=== PATIENT | male | born 2000 | race Caucasian/White ===

== ENCOUNTER 2018-10-29 21:07 | Emergency (ER) | payer BC, OTHER ==
[~2018-10-29] VITALS: Ht 165.1 cm; Wt 54.4 kg
[~2018-10-29 21:07] MED LIST: METH4TAB PO
--- OUTSIDE RECORDS SUMMARY | 2018-10-29 21:12 | XMS REPORT | Clinical Summary ---
Author Author [facility] Organization [facility] Address Unknown Phone Unavailable Care Team Providers Care Geophysical Drafter Name Role Phone Diogenes Guillen MD Unavailable Trang Hodge RN Unavailable Unavailable Lou Oden RN Unavailable Unavailable Oly Stevenson MD Unavailable Unavailable Minerva Caro APRN Unavailable Unavailable Lorenza Albarado PA-C Unavailable Taniya Rod MD PCP Enmanuel Ventura RN Unavailable Unavailable Source Comments Some departments are not documenting in the electronic medical record. If you do not see the information that you expected, contact Release of Information in the Health Information Management department at [phone] for further assistance in locating additional records.[facility] Allergies No Known Allergies Medications End Date Status Medication Sig Dispensed Refills Start Date Active meloxicam (MOBIC) 7.5 mg Take 7.5 mg 0 tablet by mouth daily. Active cholecalciferol (Vitamin Take 1,000 0 D3) (VITAMIN D-3) 1,000 Units by units tablet mouth daily. Active calcium carbonate (TUMS) Take 500 mg 0 500 mg (200 mg elemental by mouth calcium) chewable tablet daily. Active oxyCODONE (ROXICODONE) 5 Take 1-2 Tabs 60 Tab 0 06/26/201 mg tablet by mouth 5 every 4 hours as needed for Pain Active cephalexin (KEFLEX) 500 Take 4 20 Cap 3 08/16/201 mg capsuleIndications: capsules by 6 Hip joint replacement mouth one status hour before dental procedure. Use remaining capsules for future dental procedures. 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 Last Filed Vital Signs Time Taken Vital Sign Reading 08/16/2015 9:56 AM [employer] Blood Pressure 112/74 08/16/2015 9:56 AM [employer] Pulse 110 06/26/2015 11:15 AM [employer] Temperature 37 C (98.6 F) - Respiratory Rate - 06/26/2015 11:15 AM [employer] Oxygen Saturation 97% - Inhaled Oxygen - Concentration 08/16/2015 9:56 AM [employer] Weight 50.6 kg (111 lb 9.6 oz) 08/16/2015 9:56 AM [employer] Height 167 cm (5' 5.75") 08/16/2015 9:56 AM [employer] Body Mass Index 18.15 Plan of Treatment Health Maintenance Due Date Last Done Comments PHYSICAL (COMPREHENSIVE) 2005 EXAM HIV SCREENING 2013 HPV VACCINES (1 - Male 2013 3-dose series) DTAP/TDAP VACCINES (1 - 01/17/2016 Tdap) INFLUENZA VACCINE 02/02/2019 MENINGOCOCCAL VACCINE Aged Out No longer eligible based (Roxy SHERMAN) on patient's age to complete this topic Results Not on filefrom Last 3 Months Insurance Type Payer Benefit Subscriber ID Effective Phone Address Plan / Dates Group PPO HEALTHLINK HEALTHLINK xxxxxx [id number] [employer] resent [id number] Advance Directives Patient has advance care planning documents, and code status on file. For more information, please contact: [facility] [address] [place] [address] Date Inactivated Comments Code Status Date Activated 06/26/2015 3:06 PM Full Code 06/24/2015 2:47 PM Provider has discussed Code Status No, discussion not w/Patient or Family? necessary based on Dx 12/06/2014 2:03 PM Full Code 12/04/2014 9:26 AM Provider has discussed Code Status Yes w/Patient or Family?
--- OUTSIDE RECORDS SUMMARY | 2018-10-29 21:12 | XMS REPORT ---
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 2829396 Problem Short stature 783.43 Active 319863757 Problem JRA (juvenile rheumatoid arthritis) M08.00 Active 122959748 Problem Generalized anxiety disorder F41.1 Active 26705205 ALLERGIES No Known Allergies ENCOUNTERS Encounter Location Date Diagnosis [facility] [address] [place] [address] Jun, Rheumatoid arthritis involving multiple sites, unspecified rheumatoid factor presence M06.9 and JRA (juvenile rheumatoid arthritis) M08.00 [facility] [address] [place] [address] Jun, Rheumatoid arthritis involving multiple sites, unspecified rheumatoid factor presence M06.9 [facility] [address] [address] Jun, Rheumatoid arthritis involving multiple sites, unspecified rheumatoid factor presence M06.9 [facility] [address] [place] [address] 18 Apr, 2018 Juvenile rheumatoid arthritis M08.00 ; Generalized anxiety disorder F41.1 and Rheumatoid arthritis involving multiple sites, unspecified rheumatoid factor presence M06.9 [facility] [address] [place] [address] Apr, JRA (juvenile rheumatoid arthritis) M08.00 [facility] [address] [address] 05 Mar, 2018 Generalized anxiety disorder F41.1 [facility] [address] [id number] 14 Jun, 2016 Visit for TB skin test Z11.1 and Screening for tuberculosis Z11.1 [facility] [address] [address] Jan, [facility] [address] [address] Oct, [facility] [address] [place] [address] Oct, [facility] [address] [address] Jun, [facility] [address] [address] Jun, [facility] [id number] [address] Sep, IMMUNIZATIONS No Known Immunizations SOCIAL HISTORY Never Assessed REASON FOR VISIT Arthritis flare up-twooden,RMA, pt states that he is in really bad pain from his arthritis and his hands and feet in his joints are swollen PLAN OF CARE Activity Details Follow Up 4 Weeks Reason: Pending Test ESR/SED RATE (IN HOUSE) VITAL SIGNS Height 64 in 2018-06-07 Weight 121.4 lbs 2018-06-07 Temperature 97.9 degrees Fahrenheit 2018-06-07 Heart Rate 106 bpm 2018-06-07 Respiratory Rate 20 2018-06-07 Oximetry on room air:100 % 2018-06-07 BMI 20.84 kg/m2 2018-06-07 Blood pressure systolic 140 mmHg 2018-06-07 Blood pressure diastolic 80 mmHg 2018-06-07 MEDICATIONS Medication Instructions Dosage Frequency Start Date End Date Duration Status PredniSONE 20 mg Orally Once a day 3 tabs po daily X 3 days, then 2 tabs po daily X 3 days, then 1 tab po daily X 3 days 24h Jun, 9 days Active Zoloft 50 mg Orally Once a day 1 tablet 24h Apr, 30 day(s) Active HydrOXYzine Pamoate 25 MG Orally at bedtime 1 capsule as needed Mar, 30 day(s) Active Humira Pen 40 MG/0.4ML Subcutaneous q 2 weeks as directed Jun, 28 days Active RESULTS No Results PROCEDURES Procedure Date Ordered Result Body Site RBC SED RATE, NONAUTOMATED Jun 07, 2018 VENIPUNCT, ROUTINE* Jun 07, 2018 INSTRUCTIONS MEDICATIONS ADMINISTERED No Known Medications MEDICAL (GENERAL) HISTORY Type Description Date Medical History rheumatoid arthritis Surgical History 2x hip replacemnt 2014 Hospitalization History surgeries
--- OUTSIDE RECORDS SUMMARY | 2018-10-29 21:12 | XMS REPORT ---
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 1473620 Problem Short stature 783.43 Active 183732485 Problem JRA (juvenile rheumatoid arthritis) M08.00 Active 789314413 Problem Generalized anxiety disorder F41.1 Active 33815450 ALLERGIES No Information ENCOUNTERS Encounter Location Date Diagnosis [facility] [id number] [place] [address] 04 Jun, 2018 Rheumatoid arthritis involving multiple sites, unspecified rheumatoid factor presence M06.9 [facility] [id number] [place] [address]- [address] 04 Jun, 2018 Rheumatoid arthritis involving multiple sites, unspecified rheumatoid factor presence M06.9 [facility] [id number] [place] [address]70- [address] 18 Apr, 2018 Juvenile rheumatoid arthritis M08.00 ; Generalized anxiety disorder F41.1 and Rheumatoid arthritis involving multiple sites, unspecified rheumatoid factor presence M06.9 [facility] [id number] [place] [address] 13 Apr, 2018 JRA (juvenile rheumatoid arthritis) M08.00 [facility] [id number] [place] [address] 05 Mar, 2018 [address] F41.1 [facility] [address] [facility] [id number] [id number] 14 Jun, 2016 Visit for TB skin test Z11.1 and Screening for tuberculosis Z11.1 [facility] [address] [address] Jan, [facility] [address] [address] Oct, [facility] [address] [address] Oct, [facility] [address] [address] Jun, [facility] [address] [address] Jun, [facility] [address] [address] Sep, IMMUNIZATIONS No Known Immunizations SOCIAL HISTORY Never Assessed REASON FOR VISIT Returned call PLAN OF CARE VITAL SIGNS MEDICATIONS Medication Instructions Dosage Frequency Start Date End Date Duration Status Tramadol HCl 50 mg Orally every 8 hours, PRN 1 tablet as needed Jun, 28 days Active Mobic 7.5 MG Orally Once a day 1 tablet 24h Jun, 30 day(s) Active RESULTS No Results PROCEDURES No Known procedures INSTRUCTIONS MEDICATIONS ADMINISTERED No Known Medications MEDICAL (GENERAL) HISTORY Type Description Date Medical History rheumatoid arthritis Surgical History 2x hip replacemnt 2014 Hospitalization History surgeries
--- OUTSIDE RECORDS SUMMARY | 2018-10-29 21:12 | XMS REPORT ---
Author Author ISATU MILTON Organization 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 [id number] [place] [address] Jun, Rheumatoid arthritis involving multiple sites, unspecified rheumatoid factor presence M06.9 and JRA (juvenile rheumatoid arthritis) M08.00 [facility] [address] [place] [address]- [address]29 Jun, Rheumatoid arthritis involving multiple sites, unspecified rheumatoid factor presence M06.9 [facility] [address] [address] Jun, Rheumatoid arthritis involving multiple sites, unspecified rheumatoid factor presence M06.9 [facility] [id number] [place] [address]- [address] Apr, Juvenile rheumatoid arthritis M08.00 ; Generalized anxiety disorder F41.1 and Rheumatoid arthritis involving multiple sites, unspecified rheumatoid factor presence M06.9 [facility] [address] [place] [address]51 -[address]01 Apr, JRA (juvenile rheumatoid arthritis) M08.00 [facility] [address] [address] 05 Mar, 2018 Generalized anxiety disorder F41.1 [facility] [address] [id number] 14 Jun, 2016 Visit for TB skin test Z11.1 and Screening for tuberculosis Z11.1 [facility] [address] [address] Jan, [facility] [address] [address] Oct, [facility] [address] [place] [address] 3088[address] Oct, [facility] [address] [address] Jun, [facility] [address] [address] Jun, [facility] [id number] [address] Sep, IMMUNIZATIONS No Known Immunizations SOCIAL HISTORY Never Assessed REASON FOR VISIT Rx for PALS PLAN OF CARE VITAL SIGNS MEDICATIONS Medication Instructions Dosage Frequency Start Date End Date Duration Status Humira Pen 40 MG/0.4ML Subcutaneous every other week inject 40mg Jun, Active RESULTS No Results PROCEDURES No Known procedures INSTRUCTIONS MEDICATIONS ADMINISTERED No Known Medications MEDICAL (GENERAL) HISTORY Type Description Date Medical History rheumatoid arthritis Surgical History 2x hip replacemnt 2015 Hospitalization History surgeries
--- OUTSIDE RECORDS SUMMARY | 2018-10-29 21:12 | XMS REPORT ---
Author Author Migration, Doctor Organization [facility] Address Unknown Phone Unavailable Care Team Providers Care Spare Parts Clerk Name Role Phone Migration, Doctor Unavailable Unavailable PROBLEMS Type Condition ICD9-CM Code [id number] Code Onset Dates Condition Status SNOMED Code Problem Routine infant or child health check V20.2 Active 776760074 Problem Short stature 783.43 Active 383790208 Problem Rheumatoid arthritis involving multiple sites, unspecified rheumatoid factor presence M06.9 Active 676402448 Problem Social anxiety disorder F40.10 Active 70715400 Problem Polyarticular juvenile rheumatoid arthritis, 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00 [facility] [id number] [place] [address]62- 8521 Sep, Social anxiety disorder F40.10 [facility] [id number] [place] [address] 63209- 7044 13 Aug, 2018 Social anxiety disorder F40.10 [facility] [id number] [place] [address] 47639- 7651 12 Aug, 2018 Rheumatoid arthritis involving multiple sites, unspecified rheumatoid factor presence M06.9 [facility] [id number] [place] [address] 66715- 9718 Jul, Rheumatoid arthritis involving multiple sites, unspecified rheumatoid factor presence M06.9 [facility] [address] [place] [address] 89906- 1746 Jun, Rheumatoid arthritis involving multiple sites, unspecified rheumatoid factor presence M06.9 and Acne comedone L70.0 [facility] [id number] [place] [address] 62144- 1281 Jun, Rheumatoid arthritis involving multiple sites, unspecified rheumatoid factor presence M06.9 [facility] [id number] [place] [address] 80475- 7133 Jun, Rheumatoid arthritis involving multiple sites, unspecified rheumatoid factor presence M06.9 and JRA (juvenile rheumatoid arthritis) M08.00 [facility] [id number] [place] [address] 24260- 4848 Jun, Rheumatoid arthritis involving multiple sites, unspecified rheumatoid factor presence M06.9 [facility] [address] [place] [address] 86104- 5070 Jun, Rheumatoid arthritis involving multiple sites, unspecified rheumatoid factor presence M06.9 [facility] [id number] [place] [address] 55754- 5358 Apr, Juvenile rheumatoid arthritis M08.00 ; Generalized anxiety disorder F41.1 and Rheumatoid arthritis involving multiple sites, unspecified rheumatoid factor presence M06.9 [facility] [address] [address] Apr, JRA (juvenile rheumatoid arthritis) M08.00 [facility] [address] [address]- [address] Mar, Generalized anxiety disorder F41.1 [facility] [address] [place] [id number] 14 Jun, 2016 Visit for TB skin test Z11.1 and Screening for tuberculosis Z11.1 [facility] [address] [place] [address]17- [address] Jan, [facility] [address] [facility] [id number] [address] Oct, [facility] [id number] [address]- 7[address] Oct, [facility] [id number] [address]- 60[address] Jun, [facility] [address] [address]- [address] Jun, [facility] [address] [facility] [id number] [address] Sep, IMMUNIZATIONS No Known Immunizations SOCIAL HISTORY Never Assessed REASON FOR VISIT [facility] [place] OF CARE VITAL SIGNS MEDICATIONS Medication Instructions Dosage Frequency Start Date End Date Duration Status Meloxicam by Oral route Sep, Active RESULTS No Results PROCEDURES No Known procedures INSTRUCTIONS MEDICATIONS ADMINISTERED No Known Medications MEDICAL (GENERAL) HISTORY Type Description Date Medical History Juvenile Idiopathic Arthritis Medical History no hx of siezures Surgical History 2x hip replacemnt 2015 Hospitalization History surgeries
--- OUTSIDE RECORDS SUMMARY | 2018-10-29 21:12 | XMS REPORT ---
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 3548201 Problem Short stature 783.43 Active 650220673 Problem JRA (juvenile rheumatoid arthritis) M08.00 Active 543755058 Problem Generalized anxiety disorder F41.1 Active 30006936 ALLERGIES No Known Allergies ENCOUNTERS Encounter Location Date Diagnosis [facility] [id number] [place] [phone] 18 Apr, 2018 Juvenile rheumatoid arthritis M08.00 ; Generalized anxiety disorder F41.1 and Rheumatoid arthritis involving multiple sites, unspecified rheumatoid factor presence M06.9 [facility] [address], [place] [address] 13 Apr, 2018 JRA (juvenile rheumatoid arthritis) M08.00 [facility] [address], [place] [address] 05 Mar, 2018 Generalized anxiety disorder F41.1 [facility] [id number] [place] [phone] 14 Jun, 2016 Visit for TB skin test Z11.1 and Screening for tuberculosis Z11.1 [facility] [address] [address] Jan, [facility] [id number] [address] 14 Oct, 2014 [facility] [address] [facility] [id number] [address] 13 Oct, 2014 [facility] [id number] [address] Jun, [facility] [id number] [address] Jun, [place] [id number], [place] [address] Sep, IMMUNIZATIONS No Known Immunizations SOCIAL HISTORY Never Assessed REASON FOR VISIT Establish Care-MARY bejarano, pt is having a flare up with his arthritis, pt has been off of his arthitis medications mother is changing jobs no insurance PLAN OF CARE Activity Details Follow Up prn Reason: VITAL SIGNS Height 64 in 2018-04-21 Weight 116.5 lbs 2018-04-21 Temperature 98.5 degrees Fahrenheit 2018-04-21 Heart Rate 89 bpm 2018-04-21 Respiratory Rate 20 2018-04-21 Oximetry on room air:98 % 2018-04-21 BMI 19.99 kg/m2 2018-04-21 Blood pressure systolic 140 mmHg 2018-04-21 Blood pressure diastolic 62 mmHg 2018-04-21 MEDICATIONS Medication Instructions Dosage Frequency Start Date End Date Duration Status Meloxicam 7.5 mg Orally Once a day 1 tablet 24h Apr, Jun, 30 day(s) Active PredniSONE 10 mg Orally as directed 1 tablet daily for one week then 1/2 tablet daily Apr, May, 30 day(s) Active PredniSONE 20 mg Orally Once a day 3 tabs po daily X 3 days, then 2 tabs po daily X 3 days, then 1 tab po daily x 3 days 24h Apr, Apr, 9 days Active Sertraline HCl 25 MG Orally Once a day 1 tablet 24h Mar, 30 day (s) Active Zoloft 50 mg Orally Once a day 1 tablet 24h Apr, 30 day(s) Active HydrOXYzine Pamoate 25 MG Orally at bedtime 1 capsule as needed Mar, 30 day(s) Active RESULTS No Results PROCEDURES No Known procedures INSTRUCTIONS MEDICATIONS ADMINISTERED No Known Medications MEDICAL (GENERAL) HISTORY Type Description Date Medical History rheumatoid arthritis Surgical History 2x hip replacemnt 2014 Hospitalization History surgeries
--- OUTSIDE RECORDS SUMMARY | 2018-10-29 21:13 | XMS REPORT ---
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
--- OUTSIDE RECORDS SUMMARY | 2018-10-29 21:13 | XMS REPORT ---
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 1404196 Problem Short stature 783.43 Active 424804116 Problem Routine or child health check V20.2 Active 533054618 ALLERGIES No Known Allergies ENCOUNTERS Encounter Location Date Diagnosis [facility] [address] [place] [address] 05 Mar, 2018 Generalized anxiety disorder F41.1 [facility] [id number] [place] [phone] 14 Jun, 2016 Visit for TB skin test Z11.1 and Screening for tuberculosis Z11.1 [facility] [address] [place] [address] Jan, [facility] [address] [place] [address] 14 Oct, 2014 [facility] [address] [place] [address] 13 Oct, 2014 [facility] [address] [place] [phone] Jun, [facility] [id number] [place] [address] Jun, [facility] [address] [place] [address] Sep, IMMUNIZATIONS No Known Immunizations SOCIAL HISTORY Never Assessed REASON FOR VISIT Anxiety-[place]wood[place],MA PLAN OF CARE Activity Details Follow Up 4 Weeks Reason:anxiety check up VITAL SIGNS Height 64 in 2018-03-09 Weight 125.5 lbs 2018-03-09 Temperature 98.2 degrees Fahrenheit 2018-03-09 Heart Rate 89 bpm 2018-03-09 Respiratory Rate 16 2018-03-09 Oximetry on room air:100 % 2018-03-09 BMI 21.54 kg/m2 2018-03-09 Blood pressure systolic 120 mmHg 2018-03-09 Blood pressure diastolic 80 mmHg 2018-03-09 MEDICATIONS Medication Instructions Dosage Frequency Start Date End Date Duration Status Meloxicam by Oral route Sep, Active HydrOXYzine Pamoate 25 MG Orally at bedtime 1 capsule as needed Mar, 30 day(s) Active Sertraline HCl 25 MG Orally Once a day 1 tablet 24h Mar, 30 day (s) Active Actemra 80 MG/4ML Active RESULTS No Results PROCEDURES No Known procedures INSTRUCTIONS MEDICATIONS ADMINISTERED No Known Medications MEDICAL (GENERAL) HISTORY Type Description Date Medical History rheumatoid arthritis Surgical History 2x hip replacemnt 2014 Hospitalization History surgeries
--- OUTSIDE RECORDS SUMMARY | 2018-10-29 21:13 | XMS REPORT ---
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
[2018-10-29] MEDS ORDERED: LACTATED RINGERS 1,000 ML IV ONE (21:33)
[2018-10-29 21:48] LABS: BILIRUBIN,URINE NEGATIVE (NEGATIVE); CLARITY,URINE CLEAR; COLOR,URINE YELLOW; GLUCOSE, URINE (UA) NEGATIVE (NEGATIVE); KETONES,URINE NEGATIVE (NEGATIVE); LEUKOCYTE ESTERASE ,URINE NEGATIVE (NEGATIVE); NITRITE,URINE NEGATIVE (NEGATIVE); PH,URINE 6 (5-9); PROTEIN,URINE NEGATIVE (NEGATIVE); UROBILINOGEN,URINE NORMAL (NORMAL)
--- NOTE | 2018-10-29 21:48 | NUR ---
UA OBTAINED AT THIS TIME.
--- NOTE | 2018-10-29 21:50 | NUR ---
MOTHER ET SISTER AT BEDSIDE. PT REMOVED HIS CLOTHING PER THIS RN REQUEST ET DRESSED IN PAPER SCRUBS PROVIDED FOR HIM ALSO BY THIS RN.
--- NOTE | 2018-10-29 21:52 | NUR ---
MOTHER WANTING TO LEAVE TO GO TO WAITING ROOM. THIS RN INFORMED MOTHER THAT SOMEONE NEEDED TO BE W/ PT AT ALL TIMES. MOTHER OFFERED TO LEAVE HER TEENAGE DAUGHTER W/ PT. THIS RN INFORMED MOTHER IT WOULD BE BEST TO HAVE AN ADULT AT BEDSIDE. DID SUGGEST THAT MOTHER WAIT UNTIL ED HAD STAFF AVAILABLE TO SIT W/ PT SHE LEFT TO WAITING ROOM. MOTHER VOICED UNDERSTANDING
[2018-10-29 21:56] LABS: BASOPHILS % (AUTO) 0 % (0-10); EOSINOPHILS # (AUTO) 0.2 10^3/uL (0.0-0.3); EOSINOPHILS % (AUTO) 2 % (0-10); HEMATOCRIT 40 % (40-54); HEMOGLOBIN 12.6 G/DL (13.3-17.7); LYMPHOCYTES # (AUTO) 2.2 X 10^3 (1.0-4.0); LYMPHOCYTES % (AUTO) 28 % (12-44); MEAN CORPUSCULAR HEMOGLOBIN 25 PG (25-34); MEAN CORPUSCULAR HGB CONC 32 G/DL (32-36); MEAN CORPUSCULAR VOLUME 79 FL (80-99); MEAN PLATELET VOLUME 9.4 FL (7.4-10.4); MONOCYTES % (AUTO) 13 % (0-12); NEUTROPHILS # (AUTO) 4.6 X 10^3 (1.8-7.8); NEUTROPHILS % (AUTO) 57 % (42-75); PLATELET COUNT 521 10^3/uL (130-400); RED CELL DISTRIBUTION WIDTH 15.3 % (10.0-14.5)
[2018-10-29 21:58] LABS: AMORPHOUS SEDIMENT,UR FEW AMOR URATES /LPF; BACTERIA,URINE NEGATIVE /HPF; WBC,URINE RARE /HPF
--- NOTE | 2018-10-29 21:58 | ED Psychosocial ---
General Stated Complaint: SUICIDAL IDEATION Source: patient (GIVES MINIMAL INFORMATION), family (MOM DOES ALL TALKING FOR PT) History of Present Illness Date Seen by Provider: Oct 29, 2018 Time Seen by Provider: 21:21 Initial Comments PT ARRIVES VIA POV WITH MOM AND SISTER PT HAS BEEN MAKING STATEMENTS SEVERAL TIMES TODAY, SAYING "I'M GONNA KILL MYSELF " PT STATES HE DOES NOT HAVE A PLAN AND HAS NEVER ATTEMPTED TO HARM HIMSELF PT STATES HE HAS BEEN FEELING THIS WAY "FOR A FEW DAYS" DENIES ANY PARTICULAR STRESSORS ( HOWEVER, MOM STATES SHE JUST GOT TODAY AT 11:30 THIS AM, AND PT WAS THERE WITH THEM --MOM STATES SHE DOES NOT THINK THIS IS A STRESSOR FOR HIM "BECAUSE ALL THE OTHER KIDS AT HOME ARE HANDLING IT OK" MOM STATES TODAY HE HAS "BEEN RUNNING INTO [place] AND HAS BEEN UNSTEADY ON HIS FEET" TODAY PT C/O ANXIETY MOM STATES SHE TAKES XANAX 2 MG BID AND HAD RX FILLED ON 10/27/18 FOR #60, AND THERE ARE ONLY #38 LEFT IN THE BOTTLE. SHE STATES SHE HAS ONLY TAKEN A TOTAL OF 3 SINCE THIS RX WAS FILLED. SHE STATES THAT THE LAST COUPLE OF MONTHS, SHE HAS NOTICED THAT SHE HAS HAD ALOT OF HER XANAX PILLS MISSING, BUT HAS NOT CONFRONTED HIM ABOUT IT. PT ADMITS TO TAKING "2" PILLS TODAY AT NOON, AND CLAIMS HE HAS ONLY TAKEN A TOTAL OF 5 OF MOM'S PILLS AND DOES NOT ADMIT TO TAKING MORE THAN THAT. 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 NO MISSING PREDNISONE PILLS. TAKES HUMIRA EVERY 2 WEEKS. NO MISSING PREDNISONE PILLS. 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 MOM STATES THAT HE HAS BEEN DX WITH ANXIETY, BUT SHE FEELS LIKE HE IS ALSO DEPRESSED. 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. HAS NOT ATTEMPTED TO CONTACT THEM AT ANY TIME REGARDING THESE ISSUES. PCP: [facility], DR. DRUMMOND PSYCH: [facility]--SEES PACKAGING SALES Allergies and Home Medications Allergies Coded Allergies: NKANo Known Allergies (Verified Allergy, Unknown, 01/14/06) Home Medications Methylprednisolone 4 Mg/Dose-Pack Tab.ds.pk, 0 PO UD Prescribed by: MAGDALENA SUN on 01/22/15 7958 Patient Home Medication List Home Medication List Reviewed: Yes Review of Systems Constitutional: no symptoms reported Respiratory: no symptoms reported Cardiovascular: no symptoms reported Gastrointestinal: no symptoms reported Musculoskeletal: see HPI (R.A.) Skin: no symptoms reported Psychiatric/Neurological: See HPI Past Llajewl-Fapdhh-Wgnlwj Hx Patient Social History Alcohol Use: Occasionally Uses Recreational Drug Use: No Smoking Status: Never a Smoker Recent Foreign Travel: No Contact w/Someone Who Travel: No Past Medical History Surgeries: Yes (BILATERAL TOTAL HIP REPLACEMENT) Joint Replacement, Orthopedic Respiratory: No Cardiac: Yes Pericarditis Neurological: No Genitourinary: No Gastrointestinal: No Musculoskeletal: Yes (JUVENILE R.A.) Rheumatoid Arthritis Endocrine: No HEENT: No Cancer: No Psychosocial: Yes (SUICIDAL IDEATION) Anxiety, Depression Integumentary: No Blood Disorders: No Physical Exam Vital Signs - First Documented 10/29/18 21:20 Temp 96.8 Pulse 100 Resp 16 B/P (MAP) 158/105 (122) Pulse Ox 99 O2 Delivery Room Air Capillary Refill : Height, Weight, BMI Height: 5'4" Weight: 120lbs. oz. 54.597570bt; BMI Method: General Appearance: WD/WN, no apparent distress, other (VERY FLAT AFFECT, DOES NOT MAKE EYE CONTACT, BARELY TALKS OR ANSWERS ANY QUESTIONS--VERY WITHDRAWN AND LETS MOM DO ALL TALKING FOR HIM. PT HAS ON VERY HEAVY, [employer]- TYPE MAKEUP ON HIS FACE ONLY--NOT NECK ( KEYS CONTRAST TO VERY FAIR SKIN) , BUT ALSO HAS THICK STUBBLE OF FACIAL HAIR. ) HEENT: PERRL/EOMI, normal ENT inspection Neck: normal inspection Respiratory: normal breath sounds, no respiratory distress, no accessory muscle use Cardiovascular: regular rate, rhythm, no murmur Gastrointestinal: normal bowel sounds, non tender, soft Extremities: normal inspection (EXCEPT FOR CHANGES OF R.A. NOTED IN HANDS) Neurologic/Psychiatric: electrophysiology scientist II-XII nml as tested, no motor/sensory deficits, alert Appearance/Memory: other (APPEARANCE ABOVE. DIFFICULT TO DETERMINE INSIGHT HE IS NOT REALLY TALKING MUCH) Behavior/Eye Contact: avoids eye contact, other (VERY WITHDRAWN, QUIET, BARELY ANSWERS QUESTIONS AND ALLOWS MOM TO DO ALL TALKING FOR HIM. ) Thoughts/Hallucinations: other (ADMITS TO HAVING SUICIDAL THOUGHTS, BUT DENIES PLAN OR ATTEMPT. ) Skin: normal color, warm/dry Progress/Results/Core Measures Results/Orders Lab Results Laboratory Tests Test 10/29/18 21:40 10/29/18 21:50 Range/Units Urine Color YELLOW Urine Clarity CLEAR Urine pH 6 5-9 Urine Specific [place] 1.025 H 1.016-1.022 Urine Protein NEGATIVE NEGATIVE Urine Glucose (UA) NEGATIVE NEGATIVE Urine Ketones NEGATIVE NEGATIVE Urine Nitrite NEGATIVE NEGATIVE Urine Bilirubin NEGATIVE NEGATIVE Urine Urobilinogen NORMAL NORMAL MG/DL Urine Leukocyte Esterase NEGATIVE NEGATIVE Urine RBC (Auto) 3+ H NEGATIVE Urine RBC 2-5 H /HPF Urine WBC RARE /HPF Urine Crystals PRESENT H /LPF Urine Amorphous Sediment FEW BRENNAN URATES H /LPF Urine Bacteria NEGATIVE /HPF Urine Casts NONE /LPF Urine Mucus MODERATE H /LPF Urine Culture Indicated NO Urine Opiates Screen NEGATIVE NEGATIVE Urine Oxycodone Screen NEGATIVE NEGATIVE Urine Methadone Screen NEGATIVE NEGATIVE Urine Propoxyphene Screen NEGATIVE NEGATIVE Urine Barbiturates Screen NEGATIVE NEGATIVE Ur Tricyclic Antidepressants Screen NEGATIVE NEGATIVE Urine Phencyclidine Screen NEGATIVE NEGATIVE Urine Amphetamines Screen NEGATIVE NEGATIVE Urine Methamphetamines Screen NEGATIVE NEGATIVE Urine Benzodiazepines Screen NEGATIVE NEGATIVE Urine Cocaine Screen NEGATIVE NEGATIVE Urine Cannabinoids Screen NEGATIVE NEGATIVE White Blood Count 8.0 4.3-11.0 10^3/uL Red Blood Count 5.02 4.35-5.85 10^6/uL Hemoglobin 12.6 L 13.3-17.7 G/DL Hematocrit 40 40-54 % Mean Corpuscular Volume 79 L 80-99 FL Mean Corpuscular Hemoglobin 25 25-34 PG Mean Corpuscular Hemoglobin Concent 32 32-36 G/DL Red Cell Distribution Width 15.3 H 10.0-14.5 % Platelet Count 521 H 130-400 10^3/uL Mean Platelet Volume 9.4 7.4-10.4 FL Neutrophils (%) (Auto) 57 42-75 % Lymphocytes (%) (Auto) 28 12-44 % Monocytes (%) (Auto) 13 H 0-12 % Eosinophils (%) (Auto) 2 0-10 % Basophils (%) (Auto) 0 0-10 % Neutrophils # (Auto) 4.6 1.8-7.8 X 10^3 Lymphocytes # (Auto) 2.2 1.0-4.0 X 10^3 Monocytes # (Auto) 1.0 0.0-1.0 X 10^3 Eosinophils # (Auto) 0.2 0.0-0.3 10^3/uL Basophils # (Auto) 0.0 0.0-0.1 10^3/uL Sodium Level 141 135-145 MMOL/L Potassium Level 3.3 L 3.6-5.0 MMOL/L Chloride Level 101 98-107 MMOL/L Carbon Dioxide Level 25 21-32 MMOL/L Anion Gap 15 H 5-14 MMOL/L Blood Urea Nitrogen 12 7-18 MG/DL Creatinine 0.64 0.60-1.30 MG/DL Estimat Glomerular Filtration Rate > 60 BUN/Creatinine Ratio 19 Glucose Level 114 H 70-105 MG/DL Calcium Level 10.0 8.5-10.1 MG/DL Corrected Calcium 9.9 8.5-10.1 MG/DL Total Bilirubin 0.2 0.1-1.0 MG/DL Aspartate Amino Transf (AST/SGOT) 16 5-34 U/L Alanine Aminotransferase (ALT/SGPT) 16 0-55 U/L Alkaline Phosphatase 81 40-136 U/L Total Protein 8.1 6.4-8.2 GM/DL Albumin 4.1 3.2-4.5 GM/DL Free Thyroxine 1.45 0.70-1.48 NG/DL [facility] [place] Testing 4.99 H 0.35-4.94 UIU/ML Salicylates Level < 5.0 L 5.0-20.0 MG/DL Acetaminophen Level < 10 L 10-30 UG/ML Serum Alcohol < 10 <10 MG/DL My Orders Orders - MAGDALENA SUN DO Urinalysis (10/29/18 21:21) Thyroid Analyzer (10/29/18 21:21) Drug Screen Stat (Urine) (10/29/18 21:21) Cbc With Automated Diff (10/29/18 21:21) Comprehensive Metabolic Panel (10/29/18 21:21) Alcohol (10/29/18 21:21) Acetaminophen (10/29/18 21:21) Salicylate (10/29/18 21:21) Ekg Tracing (10/29/18 21:21) Ed Iv/Invasive Line Start (10/29/18 21:33) Monitor-Rhythm Ecg Trace Only (10/29/18 21:33) Ed Iv/Invasive Line Start (10/29/18 21:33) Lactated Ringers (Lr 1000 Ml Iv Solution (10/29/18 21:33) Potassium Chloride (Tablet) (Klor Con Ta (10/29/18 22:45) Free T4 (Free Thyroxine) (10/29/18 21:50) Medications Given in ED Current Medications Medications Dose Ordered Sig/Karel Route Start Time Stop Time Status Last Admin Dose Admin Lactated Ringer's 1,000 ml @ 0 mls/hr Q0M ONCE IV 10/29/18 21:33 10/29/18 21:34 DC 10/29/18 21:52 0 MLS/HR Potassium Chloride 20 meq ONCE ONCE PO 10/29/18 22:45 10/29/18 22:50 DC 10/29/18 22:58 20 MEQ Vital Signs/I&O 10/29/18 21:20 Temp 96.8 Pulse 100 Resp 16 B/P (MAP) 158/105 (122) Pulse Ox 99 O2 Delivery Room Air 10/30/18 00:00 Intake Total 1000 ml Balance 1000 ml Progress Progress Note : Progress Note MOM STATES ON ARRIVAL, SHE WANTS HIM ADMITTED TO INPATIENT PSYCH FACILITY, AND MOM WANTING TO LEAVE SHORTLY AFTER PT'S ARRIVAL ADVISED MOM THAT SHE SHOULD STAY HERE IN ROOM WITH PT, SO SHE DID, DID SISTER. PT STATES HE IS NOT WILLING TO BE ADMITTED TO PSYCH FACILITY Departure Communication (Admissions) [phone]--CALLED [facility] [phone]--SPOKE WITH ELYSSA, FROM [facility], WILL BE IN TO SEE PT 2338--ELYSSA HERE TO SEE PT 0010--ELYSSA STATES SHE HAS MADE A SAFETY PLAN AND PT WILL FOLLOW UP WITH [facility] NEXT WEEK. Impression Primary Impression: Suicidal ideation Additional Impression: Depression Disposition: 01 HOME, SELF-CARE Condition: Stable Departure-Patient Inst. Referrals: ADRIANA DRUMMOND MD (PCP/Family) Primary Care Physician Patient Instructions: Depression, Adult (DC), Preventing Adolescent Suicide, SUICIDE CONTRACT, Signs of Depression in Children and Adolescents, Suicide Prevention, Tips for How to Help Your Mood, When You Have Depression and Another Health Problem Add. Discharge Instructions: DO NOT TAKE ANY MEDICATION THAT IS NOT PRESCRIBED TO YOU, AND DO NOT TAKE MORE THAN PRESCRIBED AMOUNT ALL MEDICATIONS IN HOME NEED TO BE LOCKED UP AND DISTRIBUTED TO YOU BY YOUR MOTHER FOLLOW UP WITH [facility] ON WEDNESDAY FOR FURTHER CARE MAGDALENA SUN DO Oct 29, 2018 21:58
--- NOTE | 2018-10-29 21:59 | NUR ---
MOTHER ET SISTER TO WAITING ROOM. CAITLIN FLANNERY AT BEDSIDE W/ PT.
[2018-10-29 22:01] LABS: AMPHETAMINE SCREEN, URINE NEGATIVE (NEGATIVE); BARBITURATE SCREEN URINE NEGATIVE (NEGATIVE); BENZODIAZEPINES SCREEN URINE NEGATIVE (NEGATIVE); CANNABINOID SCREEN, URINE NEGATIVE (NEGATIVE); COCAINE SCREEN URINE NEGATIVE (NEGATIVE); METHADONE STAT NEGATIVE (NEGATIVE); METHAMPHETAMINE SCREEN URINE S NEGATIVE (NEGATIVE); OPIATE SCREEN URINE NEGATIVE (NEGATIVE); OXYCODONE STAT NEGATIVE (NEGATIVE); PROPOXYPHENE STAT NEGATIVE (NEGATIVE); TRICYCLIC ANTIDEPRESSANTS SCRE NEGATIVE (NEGATIVE)
[2018-10-29 22:29] LABS: ACETAMINOPHEN < 10 UG/ML (10-30); ALANINE AMINOTRANSFERASE 16 U/L (0-55); ALBUMIN 4.1 GM/DL (3.2-4.5); ALKALINE PHOSPHATASE 81 U/L (40-136); BILIRUBIN,TOTAL 0.2 MG/DL (0.1-1.0); BUN/CREATININE RATIO 19; CARBON DIOXIDE 25 MMOL/L (21-32); CHLORIDE 101 MMOL/L (98-107); CREATININE SERUM 0.64 MG/DL (0.60-1.30); GFR ESTIMATED > 60; GLUCOSE 114 MG/DL (70-105); POTASSIUM 3.3 MMOL/L (3.6-5.0); SALICYLATE < 5.0 MG/DL (5.0-20.0); SODIUM 141 MMOL/L (135-145); TOTAL PROTEIN 8.1 GM/DL (6.4-8.2)
--- NOTE | 2018-10-29 22:31 | NUR ---
LR INFUSION COMPLETE, MOTHER ET SISTER REMAIN AT BEDSIDE. LIGHTS DOWN IN ROOM TO ALLOW PT TO REST. NO QUESTIONS OR CONCERNS VOICED
[2018-10-29] MEDS ORDERED: KCL 10 MEQ TAB (MICRO K) PO ONE (22:45)
[2018-10-29 22:49] LABS: TSH (THYROID ANALYZER) 4.99 UIU/ML (0.35-4.94)
--- NOTE | 2018-10-29 23:19 | NUR ---
MOTHER ET SISTER AGAIN LEFT TO WAITING ROOM. EDT TO BEDSIDE W/ PT AT THIS TIME.
[2018-10-29 23:21] LABS: FREE T4 (FREE THYROXINE) 1.45 NG/DL (0.70-1.48)
--- NOTE | 2018-10-29 23:35 | NUR ---
MOTHER ET DAUGHTER BACK TO ROOM W/ PT
--- NOTE | 2018-10-29 23:38 | NUR ---
ELYSSA W/ [facility] HERE TO SEE PT
--- NOTE | 2018-10-30 00:09 | NUR ---
[facility] OUT OF ROOM TO TALK W/ DR SUN
[2018-10-30 00:31] VITALS: BP 143/91
--- NOTE | 2018-10-30 00:31 | NUR ---
SUICIDE CONTRACT SIGNED BY PT. DISCHARGE INSTRUCTIONS DISCUSSED W/ BOTH PT ET MOTHER. UNDERSTANDING VOICED. MOTHER ET PT URGED TO RETURN TO THIS ED OR GO TO THE ED OF THEIR CHOICE FOR FURTHER CARE. NO QUESTIONS
== END 2018-10-30 00:31 | disposition home or self-care (01) ==
LOC: EDUNIT# 21:07 → ER 21:08
DX: R45.851 Suicidal ideations (principal); F32.9 Major depressive disorder, single episode, unspecified; F41.9 Anxiety disorder, unspecified; M06.9 Rheumatoid arthritis, unspecified; Z79.52 Long term (current) use of systemic steroids; Z96.643 Presence of artificial hip joint, bilateral; Z86.69 Personal history of other diseases of the nervous system and sense organs
CPT/HCPCS: 36415; 80053; 80306; 80320; 80329; 81000; 84439; 84443; 85025; 93005

== ENCOUNTER 2019-07-16 11:41 | Emergency (ER) | payer BC ==
[~2019-07-16] VITALS: Ht 165.1 cm; Wt 61.3 kg
--- NOTE | 2019-07-16 12:22 | ED Lower Extremity ---
General Chief Complaint: General Problems/Pain Stated Complaint: L HIP PAIN Nursing Triage Note: Pt to ED in wheelchair accompanied by stepfather. Stepfather reports pt has RA and is having a flare. Pt c/o L hip and sciatic pain since Wednesday. Pt denies seeing PCP for this flare. Stepfather is requesting referral for a new doctor and reports pt needs bloodwork and medications adjusted. Nursing Sepsis Screen: No Definite Risk Source: patient History of Present Illness Date Seen by Provider: Jul 16, 2019 Time Seen by Provider: 11:55 Initial Comments PT ARRIVES VIA POV FROM HOME WITH STEP-DAD C/O LEFT HIP PAIN SINCE Wednesday07/11/19 PAIN RADIATES DOWN BACK OF LEFT LEG, BUT DENIES ANY BACK PAIN HAS SLIGHT TINGLING IN LEFT TOES. NO INJURY OR UNUSUAL ACTIVITY PT TOOK 1 NAPROXEN TODAY AT 0800 --NO RELIEF. HAS TRAMADOL AT HOME AND TOOK 1 YESTERDAY, NO RELIEF. OTHERWISE HAS NOT TAKEN ANYTHING ELSE FOR PAIN PT HAS JUVENILE RHEUMATOID ARTHRITIS, AND STATES HE TAKES PREDNISONE 5 MG DAILY FOR YEARS, BUT OTHERWISE DOES NOT TAKE ANYTHING ELSE AT ALL FOR THIS PROBLEM ( THIS IS NOT LISTED DAILY MEDICATION ON REVIEW OF EXTERNAL MED HISTORY) HE STATES HE ONLY HAS A FEW LEFT, DOES NOT HAVE ANY REFILLS, AND HAS NOT ATTEMPTED TO FOLLOW UP WITH DR. DRUMMOND OR ANYONE FOR THIS PROBLEM OR FOR REFILLS ON HIS MEDICATION PT STATES HE DOES NOT SEE ANY SPECIALISTS FOR THIS--NO ORTHOPEDIC SURGEON SINCE 2014, AND CLAIMS HE HAS NOT SEEN A PERIANESTHESIA MANAGER "FOR YEARS"--SINCE AT LEAST 2016 STATES HE WAS DX AT AGE 1 PT HAD BILATERAL HIP REPLACEMENTS IN 2015 AT . PT STATES HE HAS NOT HAD HIP PAIN SINCE HE HAD THEM REPLACED. PT DENIES BEING ON ANY MEDICATIONS IN THE PAST FOR R.A. BUT PER OLD RECORDS, PT HAS BEEN PRESCRIBED REMICADE, ACTEMRA, AND HUMIRA IN THE PAST, BUT LAST PRESCRIBED HUMIRA 10/2018 PER MED RECONCILIATION--STATES HE WAS PRESCRIBED THESE MEDICATIONS BY DR. DRUMMOND. PCP: DR. DRUMMOND AT [facility] Allergies and Home Medications Allergies Coded Allergies: NKANo Known Allergies (Verified Allergy, Unknown, 01/14/06) Home Medications Cyclobenzaprine HCl 10 Mg Tablet, 10 MG PO Q8H Prescribed by: MAGDALENA SUN on 07/16/19 1243 Methylprednisolone 4 Mg/Dose-Pack Tab.ds.pk, 0 PO UD Prescribed by: MAGDALENA SUN on 01/22/159 Prednisone 20 Mg Tab, 40 MG PO DAILY Prescribed by: MAGDALENA SUN on 07/16/19 1243 Patient Home Medication List Home Medication List Reviewed: Yes Review of Systems Constitutional: no symptoms reported; No chills, No diaphoresis, No fever Respiratory: no symptoms reported Cardiovascular: no symptoms reported Gastrointestinal: no symptoms reported Musculoskeletal: see HPI, joint pain, joint swelling (KNEES ARE SWOLLEN) Skin: no symptoms reported Psychiatric/Neurological: See HPI Past Ufgrzam-Xernrh-Iuofni Hx Patient Social History Alcohol Use: Occasionally Uses Recreational Drug Use: Yes (HAS ABUSED RX DRUGS--MAINLY XANAX AND TRAMADOL, PER VISIT 10/29/18) Drug of Choice: HAS ABUSED RX DRUGS--MAINLY XANAX AND TRAMADOL, PER ER RECORD 10/29/18 Smoking Status: Never a Smoker 2nd Hand Smoke Exposure: No Recent Foreign Travel: No Contact w/Someone Who Travel: No Recent Infectious Disease Expo: No Recent Hopitalizations: No Past Medical History Surgeries: Yes (BILATERAL TOTAL HIP REPLACEMENTS 2014) Joint Replacement, Orthopedic Respiratory: No Cardiac: Yes Pericarditis Neurological: No Genitourinary: No Gastrointestinal: No Musculoskeletal: Yes (JUVENILE R.A. DX AGE 1; OSTEOPENIA; S/P BILATERAL HIP REPLACEMENTS 2014) Arthritis, Rheumatoid Arthritis Endocrine: No HEENT: No Cancer: No Psychosocial: Yes (SUICIDAL IDEATION) Anxiety, Depression Integumentary: No Blood Disorders: No Physical Exam Vital Signs Vital Signs - First Documented 07/16/19 11:47 Temp 36.9 Pulse 108 Resp 15 B/P (MAP) 149/104 (119) Pulse Ox 98 O2 Delivery Room Air Capillary Refill : Less Than 3 Seconds Height, Weight, BMI Height: 5'5.00" Weight: 120lbs. oz. 54.450308vg; 22.00 BMI Method:Stated General Appearance: WD/WN, no apparent distress, other (VERY FLAT AFFECT, DOES NOT MAKE EYE CONTACT) Cardiovascular: regular rate, rhythm, no murmur Respiratory: normal breath sounds Gastrointestinal: soft Back: no vertebral tenderness Hips: right hip non-tender, right hip normal inspection; left hip no evidence of injury, left hip limited range of motion, left hip other (MILD TENDERNESS TO LEFT HIP. NO OBVIOUS HIP SWELLING) Legs: bilateral leg other (NO EDEMA TO LEGS) Knees: bilateral knee bone tenderness, bilateral knee soft tissue tenderness, bilateral knee swelling Ankles: bilateral ankle non-tender, bilateral ankle normal inspection, bilateral ankle normal range of motion, bilateral ankle no evidence of injury Feet: bilateral foot non-tender, bilateral foot normal inspection, bilateral foot normal range of motion, bilateral foot no evidence of injury Neurologic/Tendon: normal sensation, normal motor functions, normal tendon functions Neurologic/Psychiatric: permastone applicator II-XII nml as tested, no motor/sensory deficits, alert, normal mood/affect, oriented x 3 Skin: normal color, warm/dry; No rash NO BACK TENDERNESS, NO SI JOINT TENDERNESS, NO ILIAC CREST TENDERNESS, NO PUBIC BONE TENDERNESS. Progress/Results/Core Measures Results/Orders My Orders Orders - MAGDALENA SUN DO Pelvis With Left Hip 2-3 Views (07/16/19 12:04) Methylprednisolone Sod Succ (Solu-Medrol (07/16/19 13:00) Orphenadrine Injection (Norflex Injectio (07/16/19 13:00) Vital Signs/I&O 07/16/19 11:47 Temp 36.9 Pulse 108 Resp 15 B/P (MAP) 149/104 (119) Pulse Ox 98 O2 Delivery Room Air Blood Pressure Mean: 119 Progress Progress Note : Progress Note MOM ARRIVES LATER, AND VERIFIES MEDICATIONS, SPECIALISTS, ETC. PT MAKES BETTER EYE CONTACT PRIOR TO DISMISSAL. PT AND FAMILY AGREE WITH PLAN OF CARE--ADVISED TO FOLLOW UP WITH DR. DRUMMOND THIS WEEK FOR FURTHER CARE, AND FOR POSSIBLE NEW REFERRAL TO PERIANESTHESIA MANAGER. PT STATES HE HAS A WALKER AT HOME, AND ADVISED HIM TO USE IT LONG HE IS HAVING PAIN, AND WHILE TAKING PAIN MEDICATION AND MUSCLE RELAXANT, TO PREVENT FALLING. Diagnostic Imaging Comments XRAYS PELVIS AND LEFT HIP--NO ACUTE PROCESS, PER RADIOLOGIST REPORT AT 1244 Reviewed: Reviewed by Me Departure Impression Primary Impression: Left hip pain Additional Impressions: Radicular pain of left lower extremity Juvenile rheumatoid arthritis Disposition: HOME, SELF-CARE Condition: Stable Departure-Patient Inst. Referrals: ADRIANA DRUMMOND MD (PCP/Family) Primary Care Physician Patient Instructions: Hip Pain (DC), Radiculopathy (DC), Rheumatoid Arthritis (DC) Add. Discharge Instructions: ALTERNATE ICE AND HEAT TO SORE AREAS AT 20 MINUTE INTERVALS TAKE YOUR TRAMADOL 1 PILL EVERY 4 HOURS NEEDED FOR PAIN FOLLOW UP WITH DR. DRUMMOND THIS WEEK FOR FURTHER CARE All discharge instructions reviewed with patient and/or family. Voiced understanding. Scripts Cyclobenzaprine HCl (Cyclobenzaprine HCl) 10 Mg Tablet 10 MG PO Q8H, #15 TAB Prov: MAGDALENA SUN DO 07/16/19 Prednisone (Prednisone) 20 Mg Tab 40 MG PO DAILY, #6 TAB Prov: MAGDALENA SUN DO 07/16/19 MAGDALENA SUN DO Jul 16, 2019 12:22
--- NOTE | 2019-07-16 12:32 | Diagnostic Imaging Report ---
EXAMINATION: Pelvis, single view. COMPARISON: None. HISTORY: 19-year-old male, left hip and sciatic pain. History of rheumatoid arthritis. FINDINGS: There are bilateral total hip prostheses. The pubic symphysis and sacroiliac joints are unremarkable in appearance. The bones appear demineralized. The femoral diaphysis appear somewhat gracile. There is no identified acute fracture. IMPRESSION: 1. No identified acute bony abnormality. 2. The bones appear demineralized. Dictated by: Dictated on workstation # [id number]
[2019-07-16] MEDS ORDERED: PRD20T PO (12:43)
[2019-07-16] MEDS ORDERED: CYCL10TA9 PO (12:43)
[2019-07-16] MEDS ORDERED: ORPHENADRINE 60 MG/2 ML (NORFLEX) AMP IM ONE (13:00)
[2019-07-16] MEDS ORDERED: methylPREDNISolone 125 MG (Solu-MEDROL) VIAL IM ONE (13:00)
[2019-07-16 13:06] VITALS: BP 151/93
== END 2019-07-16 13:07 | disposition home or self-care (01) ==
LOC: EDUNIT# 11:41 → ER 11:42
DX: M08.052 Unspecified juvenile rheumatoid arthritis, left hip (principal); M54.10 Radiculopathy, site unspecified; F41.9 Anxiety disorder, unspecified; F32.9 Major depressive disorder, single episode, unspecified; Z96.643 Presence of artificial hip joint, bilateral
CPT/HCPCS: 96372

== ENCOUNTER → 2020-03-06 | Outpatient (CLI) | payer OTHER ==
[~2020-03-06] MED LIST changes: +CYCL10TA9 PO; +PRD20T PO
--- NOTE | 2020-03-06 13:46 | Diagnostic Imaging Report ---
INDICATION: Left shoulder pain AP, and oblique views of the left shoulder are obtained. There is no fracture or acute bony abnormality. There is advanced degenerative change of the left shoulder joint with severe joint space narrowing and subchondral sclerosis. IMPRESSION: No acute abnormality. Advanced degenerative change of the left glenohumeral joint. Dictated by: Dictated on workstation # [id number]
== END ==
LOC: RAD 10:16
PROVIDERS: ATTEND Anesthesiology Pain Medicine
DX: Z02.71 Encounter for disability determination (principal); M19.012 Primary osteoarthritis, left shoulder; D64.9 Anemia, unspecified; F32.9 Major depressive disorder, single episode, unspecified; F41.9 Anxiety disorder, unspecified; M06.9 Rheumatoid arthritis, unspecified; Z98.1 Arthrodesis status
CPT/HCPCS: 73030

== ENCOUNTER 2020-10-12 10:49 | Emergency (ER) | payer SELFPAY ==
[~2020-10-12] VITALS: Ht 167 cm; Wt 63.5 kg
[2020-10-12] MEDS ORDERED: NS IV 1000 ML 1,000 ML ONE (11:02)
--- NOTE | 2020-10-12 11:10 | ED Neurological Problem ---
General Chief Complaint: Neurological Problems Stated Complaint: SEIZURE Nursing Triage Note: PT PRESENTS TO ED VIA EMS FROM HOME OFR SEIZURE LIKE ACTIVITY LASTING APROX 3 MIN ACCORDING TO PT FATHER. PT IS ALERT AND ORIENTED UPON ARRIVAL TO ED. Nursing Sepsis Screen: No Definite Risk History of Present Illness Date Seen by Provider: Oct 12, 2020 Time Seen by Provider: 11:00 Initial Comments 20-year-old male presents for seizure-like activity that occurred at home, it was witnessed by his father. He believes it lasted approximately 3 minutes. No history of seizures in the past. He started a new medicine, Xeljanz approximately 2 weeks ago, no other change in his recent medical history. He does have a history of rheumatoid arthritis. No incontinence with the seizure. Patient was in bed when it occurred, no other injuries related to it. The patient is alert and oriented x3 at this time. He was brought by EMS. Father reports he was shaking and eyes rolled back, he was unable to talk and breathing hard, but recovered quickly. Timing/Duration: 1/2 hour Associated Symptoms: No confusion; fatigue; No fever/chills, No insomnia, No loss of consciousness, No muscle spasms, No nausea/vomiting, No numbness in legs/feet, No paresthesia, No ringing in ears; seizures; No sleepy, No slurred speech, No tingling in legs/feet, No trouble walking, No vision changes, No weakness Allergies and Home Medications Allergies Coded Allergies: NKANo Known Allergies (Verified Allergy, Unknown, 01/14/06) Home Medications Cyclobenzaprine HCl 10 Mg Tablet, 10 MG PO Q8H Prescribed by: MAGDALENA SUN on 07/16/19 1243 Methylprednisolone 4 Mg/Dose-Pack Tab.ds.pk, 0 PO UD Prescribed by: MAGDALENA SUN on 01/22/15 2249 Prednisone 20 Mg Tab, 40 MG PO DAILY Prescribed by: MAGDALENA SUN on 07/16/19 1243 Patient Home Medication List Home Medication List Reviewed: Yes Review of Systems Review of Systems Constitutional: no symptoms reported, see HPI Ears, Nose, Mouth, Throat: no symptoms reported, see HPI Respiratory: no symptoms reported, see HPI Cardiovascular: no symptoms reported, see HPI Gastrointestinal: no symptoms reported, see HPI Musculoskeletal: no symptoms reported, see HPI Psychiatric/Neurological: See HPI, [place] Seizures All Other Systems Reviewed Negative Unless Noted: Yes Past Lsgcejs-Lfmbjc-Ausbaf Hx Past Med/Social Hx: Reviewed Nursing Past Med/Soc Hx Patient Social History Alcohol Use: Denies Use Drug of Choice: HAS ABUSED RX DRUGS--MAINLY XANAX AND TRAMADOL, PER ER RECORD 10/29/18 Smoking Status: Never a Smoker 2nd Hand Smoke Exposure: No Recent Infectious Disease Expo: No Recent Hopitalizations: No Past Medical History Surgeries: Yes (BILATERAL TOTAL HIP REPLACEMENTS 2014) Joint Replacement, Orthopedic Respiratory: No Cardiac: Yes Pericarditis Neurological: No Genitourinary: No Gastrointestinal: No Musculoskeletal: Yes (JUVENILE R.A. DX AGE 1; OSTEOPENIA; S/P BILATERAL HIP REPLACEMENTS 2014) Arthritis, Rheumatoid Arthritis Endocrine: No HEENT: No Cancer: No Psychosocial: Yes (SUICIDAL IDEATION) Anxiety, Depression Integumentary: No Blood Disorders: No Physical Exam Vital Signs Vital Signs - First Documented 10/12/20 10:57 Temp 35.8 Pulse 131 Resp 20 B/P (MAP) 160/103 (122) Pulse Ox 94 Capillary Refill : Less Than 3 Seconds Height, Weight, BMI Height: 5'5.00" Weight: 120lbs. oz. 54.146500ql; 22.00 BMI Method:Stated General Appearance: WD/WN, no apparent distress HEENT: PERRL/EOMI, normal ENT inspection, TMs normal, pharynx normal Neck: non-tender, full range of motion, supple, normal inspection Respiratory: chest non-tender, lungs clear, normal breath sounds Cardiovascular: normal peripheral pulses, regular rate, rhythm Gastrointestinal: normal bowel sounds, non tender, soft Back: normal inspection, no CVA tenderness, no vertebral tenderness Extremities: normal range of motion, non-tender, normal inspection, no pedal edema, no calf tenderness Neurologic/Psychiatric: mathematician research II-XII nml as tested, no motor/sensory deficits, alert, normal mood/affect, oriented x 3 Crainal Nerves: normal hearing, normal speech, PERRL Motor/Sensory: no motor deficit, no sensory deficit Skin: normal color, warm/dry Progress/Results/Core Measures Results/Orders Lab Results Laboratory Tests Test 10/12/20 10:54 10/12/20 11:13 Range/Units White Blood Count 18.7 H 4.3-11.0 10^3/uL Red Blood Count 5.72 H 4.30-5.52 10^6/uL Hemoglobin 15.6 13.3-17.7 g/dL Hematocrit 50 40-54 % Mean Corpuscular Volume 87 80-99 fL Mean Corpuscular Hemoglobin 27 25-34 pg Mean Corpuscular Hemoglobin Concent 32 32-36 g/dL Red Cell Distribution Width 15.5 H 10.0-14.5 % Platelet Count 384 130-400 10^3/uL Mean Platelet Volume 9.6 9.0-12.2 fL Immature Granulocyte % (Auto) 7 % Neutrophils (%) (Auto) 55 42-75 % Lymphocytes (%) (Auto) 29 12-44 % Monocytes (%) (Auto) 7 0-12 % Eosinophils (%) (Auto) 1 0-10 % Basophils (%) (Auto) 1 0-10 % Neutrophils # (Auto) 10.3 H 1.8-7.8 10^3/uL Lymphocytes # (Auto) 5.5 H 1.0-4.0 10^3/uL Monocytes # (Auto) 1.3 H 0.0-1.0 10^3/uL Eosinophils # (Auto) 0.2 0.0-0.3 10^3/uL Basophils # (Auto) 0.1 0.0-0.1 10^3/uL Immature Granulocyte # (Auto) 1.4 H 0.0-0.1 10^3/uL Neutrophils % (Manual) 39 % Lymphocytes % (Manual) 42 % Monocytes % (Manual) 19 % Blood Morphology Comment NORMAL Prothrombin Time 13.8 12.2-14.7 SEC INR Comment 1.0 0.8-1.4 Activated Partial Thromboplast Time 23 L 24-35 SEC Sodium Level 138 135-145 MMOL/L Potassium Level 3.8 3.6-5.0 MMOL/L Chloride Level 100 98-107 MMOL/L Carbon Dioxide Level 15 L 21-32 MMOL/L Anion Gap 23 H 5-14 MMOL/L Blood Urea Nitrogen 11 7-18 MG/DL Creatinine 0.79 0.60-1.30 MG/DL Estimat Glomerular Filtration Rate > 60 BUN/Creatinine Ratio 14 Glucose Level 125 H 70-105 MG/DL Glucometer 129 H 70-110 MG/DL Calcium Level 8.9 8.5-10.1 MG/DL Corrected Calcium 8.5 8.5-10.1 MG/DL Total Bilirubin 0.3 0.1-1.0 MG/DL Aspartate Amino Transf (AST/SGOT) 50 H 5-34 U/L Alanine Aminotransferase (ALT/SGPT) 89 H 0-55 U/L Alkaline Phosphatase 127 40-136 U/L C-Reactive Protein High Sensitivity 0.65 H 0.00-0.50 MG/DL Total Protein 7.8 6.4-8.2 GM/DL Albumin 4.5 3.2-4.5 GM/DL Procalcitonin 0.04 <0.10 NG/ML Urine Color YELLOW Urine Clarity CLEAR Urine pH 6.0 5-9 Urine Specific [place]hen[place] >=1.030 1.016-1.022 Urine Protein NEGATIVE NEGATIVE Urine Glucose (UA) NEGATIVE NEGATIVE Urine Ketones NEGATIVE NEGATIVE Urine Nitrite NEGATIVE NEGATIVE Urine Bilirubin NEGATIVE NEGATIVE Urine Urobilinogen 0.2 < = 1.0 MG/DL Urine Leukocyte Esterase NEGATIVE NEGATIVE Urine RBC (Auto) TRACE-I NEGATIVE Urine RBC NONE /HPF Urine WBC 0-2 /HPF Urine Squamous Epithelial Cells 0-2 /HPF Urine Crystals NONE /LPF Urine Bacteria NEGATIVE /HPF Urine Casts NONE /LPF Urine Mucus LARGE H /LPF Urine Culture Indicated NO Urine Opiates Screen NEGATIVE NEGATIVE Urine Oxycodone Screen NEGATIVE NEGATIVE Urine Methadone Screen NEGATIVE NEGATIVE Urine Propoxyphene Screen NEGATIVE NEGATIVE Urine Barbiturates Screen NEGATIVE NEGATIVE Ur Tricyclic Antidepressants Screen NEGATIVE NEGATIVE Urine Phencyclidine Screen NEGATIVE NEGATIVE Urine Amphetamines Screen NEGATIVE NEGATIVE Urine Methamphetamines Screen NEGATIVE NEGATIVE Urine Benzodiazepines Screen NEGATIVE NEGATIVE Urine Cocaine Screen NEGATIVE NEGATIVE Urine Cannabinoids Screen NEGATIVE NEGATIVE My Orders Orders - WALLACE JOHNSON PROTECTION CONSULTANT Cbc With Automated Diff (10/12/20 11:06) Comprehensive Metabolic Panel (10/12/20 11:06) Drug Screen Stat (Urine) (10/12/20 11:06) Protime With Inr (10/12/20 11:06) Partial Thromboplastin Time (10/12/20 11:06) Ua Culture If Indicated (10/12/20 11:06) Procalcitonin (Pct) (10/12/20 11:06) Ed Iv/Invasive Line Start (10/12/20 11:06) Ns Iv 1000 Ml (Sodium Chloride 0.9%) (10/12/20 11:15) Ns Iv 1000 Ml (Sodium Chloride 0.9%) (10/12/20 11:02) Manual Differential (10/12/20 10:54) Ct Head Wo (10/12/20 11:31) Hs C Reactive Protein (10/12/20 11:41) Prolactin (10/12/20 12:19) Vital Signs/I&O 10/12/20 10:57 Temp 35.8 Pulse 131 Resp 20 B/P (MAP) 160/103 (122) Pulse Ox 94 Blood Pressure Mean: 122 Progress Progress Note : Time: 11:00 Progress Note Patient seen and evaluated, will obtain labs, normal saline [address] head. Patient alert and oriented, does not appear postictal 1145 no seizure activity since presenting here. WBC 18.7, but no source of infection and no fever. Possibly related to the new medication Xeljanz. Procalcitonin negative. Encouraged follow-up with his primary care provider for labs in the next week. Discharge instructions and return precautions discussed with the patient and his father. Initial ECG Impression Date: Oct 12, 2020 Initial ECG Impression Time: 10:56 Initial ECG Rate: 129 Initial ECG Rhythm: S.Tach Initial ECG Intervals: Normal Initial ECG Intervals TN 127, QRSD 95, QT 325, QTc 477. [place] P 36, QRS 84, T 29. Initial ECG Impression: Normal Initial ECG Comparisson: Unchanged Diagnostic Imaging Diagonstic Imaging: CT Plain Films/CT/US/NM/MRI: head Comments NAME: [facility] REC#: [id number] PT STATUS: REG ER : 2000 PHYSICIAN: WALLACE JOHNSON ADMIT DATE: 10/12/20/ER Draft Date of Exam:10/12/20 CT HEAD WO PROCEDURE: CT head without contrast. TECHNIQUE: Multiple contiguous axial images were obtained through the brain without the use of intravenous contrast. Auto Exposure Controls were utilized during the CT exam to meet ALARA standards for radiation dose reduction. INDICATION: Seizure-like activity lasting for 3 minutes. FINDINGS: The ventricles and sulci are within normal limits. There is no hydrocephalus or cerebral edema. There is no midline shift or mass effect. There is no intracranial mass, hemorrhage, or extra-axial fluid collection. The visualized paranasal sinuses and mastoid air cells are clear. There are no regional areas of decreased attenuation appreciated to suggest an acute CVA. IMPRESSION: No acute intracranial abnormality. Dictated on workstation # [id number] Dict: 10/12/20 1147 Trans: 10/12/20 1149 [id number] Interpreted by: CARMEN HERNANDEZ MD Electronically signed by: Reviewed: Reviewed by Me Departure Impression Primary Impression: Seizure-like activity Disposition: 01 HOME, SELF-CARE Condition: Improved Departure-Patient Inst. Decision time for Depature: 12:00 Referrals: ADRIANA DRUMMOND MD (PCP/Family) Primary Care Physician Patient Instructions: Syncope (Fainting) (DC), Seizures, Adult (DC) Add. Discharge Instructions: Increase water intake and make sure you are eating approximately every 4 hours. Discontinue or use Tramadol sparingly, as it can be associated with lowering seizure threshold. Monitor for seizure activity, no driving until you follow-up with Dr. Drummond. Keep your scheduled appointment with Dr. Drummond for later this month. Return to the emergency department for any new seizure-like activity or other emergency needs. All discharge instructions reviewed with patient and/or family. Voiced understanding. Copy Copies To 1: ADRIANA DRUMMOND MD, AMY ARNP Oct 12, 2020 11:10
[2020-10-12 11:13] LABS: BASOPHILS # (AUTO) 0.1 10^3/uL (0.0-0.1); BASOPHILS % (AUTO) 1 % (0-10); EOSINOPHILS # (AUTO) 0.2 10^3/uL (0.0-0.3); EOSINOPHILS % (AUTO) 1 % (0-10); HEMATOCRIT 50 % (40-54); HEMOGLOBIN 15.6 g/dL (13.3-17.7); LYMPHOCYTES # (AUTO) 5.5 10^3/uL (1.0-4.0); LYMPHOCYTES % (AUTO) 29 % (12-44); MEAN CORPUSCULAR HEMOGLOBIN 27 pg (25-34); MEAN CORPUSCULAR HGB CONC 32 g/dL (32-36); MEAN CORPUSCULAR VOLUME 87 fL (80-99); MEAN PLATELET VOLUME 9.6 fL (9.0-12.2); MONOCYTES # (AUTO) 1.3 10^3/uL (0.0-1.0); MONOCYTES % (AUTO) 7 % (0-12); NEUTROPHILS # (AUTO) 10.3 10^3/uL (1.8-7.8); NEUTROPHILS % (AUTO) 55 % (42-75); PLATELET COUNT 384 10^3/uL (130-400); WHITE BLOOD COUNT 18.7 10^3/uL (4.3-11.0)
[2020-10-12] MEDS ORDERED: NS IV 1000 ML 1,000 ML IV SCH (11:15)
[2020-10-12 11:23] LABS: BILIRUBIN,URINE NEGATIVE (NEGATIVE); CLARITY,URINE CLEAR; COLOR,URINE YELLOW; GLUCOSE, URINE (UA) NEGATIVE (NEGATIVE); KETONES,URINE NEGATIVE (NEGATIVE); LEUKOCYTE ESTERASE ,URINE NEGATIVE (NEGATIVE); NITRITE,URINE NEGATIVE (NEGATIVE); PROTEIN,URINE NEGATIVE (NEGATIVE)
[2020-10-12 11:25] LABS: PROTHROMBIN TIME PATIENT 13.8 SEC (12.2-14.7)
[2020-10-12 11:26] LABS: ALBUMIN 4.5 GM/DL (3.2-4.5)
[2020-10-12 11:27] LABS: CHLORIDE 100 MMOL/L (98-107); POTASSIUM 3.8 MMOL/L (3.6-5.0); SODIUM 138 MMOL/L (135-145)
[2020-10-12 11:28] LABS: CALCIUM 8.9 MG/DL (8.5-10.1)
[2020-10-12 11:29] LABS: GLUCOSE 125 MG/DL (70-105); TOTAL PROTEIN 7.8 GM/DL (6.4-8.2)
[2020-10-12 11:30] LABS: CARBON DIOXIDE 15 MMOL/L (21-32)
[2020-10-12 11:31] LABS: BILIRUBIN,TOTAL 0.3 MG/DL (0.1-1.0)
[2020-10-12 11:33] LABS: BACTERIA,URINE NEGATIVE /HPF; SQUAMOUS EPITHELIAL CELL,UR 0-2 /HPF; WBC,URINE 0-2 /HPF
[2020-10-12 11:33] LABS: ALKALINE PHOSPHATASE 127 U/L (40-136); CREATININE SERUM 0.79 MG/DL (0.60-1.30); GFR ESTIMATED > 60
[2020-10-12 11:34] LABS: BUN/CREATININE RATIO 14
[2020-10-12 11:36] LABS: AMPHETAMINE SCREEN, URINE NEGATIVE (NEGATIVE); BARBITURATE SCREEN URINE NEGATIVE (NEGATIVE); BENZODIAZEPINES SCREEN URINE NEGATIVE (NEGATIVE); CANNABINOID SCREEN, URINE NEGATIVE (NEGATIVE); COCAINE SCREEN URINE NEGATIVE (NEGATIVE); METHADONE STAT NEGATIVE (NEGATIVE); METHAMPHETAMINE SCREEN URINE S NEGATIVE (NEGATIVE); OPIATE SCREEN URINE NEGATIVE (NEGATIVE); OXYCODONE STAT NEGATIVE (NEGATIVE); PROPOXYPHENE STAT NEGATIVE (NEGATIVE); TRICYCLIC ANTIDEPRESSANTS SCRE NEGATIVE (NEGATIVE)
[2020-10-12 11:36] LABS: ALANINE AMINOTRANSFERASE 89 U/L (0-55)
--- NOTE | 2020-10-12 11:49 | Diagnostic Imaging Report ---
PROCEDURE: CT head without contrast. TECHNIQUE: Multiple contiguous axial images were obtained through the brain without the use of intravenous contrast. Auto Exposure Controls were utilized during the CT exam to meet ALARA standards for radiation dose reduction. INDICATION: Seizure-like activity lasting for 3 minutes. FINDINGS: The ventricles and sulci are within normal limits. There is no hydrocephalus or cerebral edema. There is no midline shift or mass effect. There is no intracranial mass, hemorrhage, or extra-axial fluid collection. The visualized paranasal sinuses and mastoid air cells are clear. There are no regional areas of decreased attenuation appreciated to suggest an acute CVA. IMPRESSION: No acute intracranial abnormality. Dictated by: Dictated on workstation # [id number]
[2020-10-12 11:50] LABS: LYMPHOCYTES % (MANUAL) 42 %; MONOCYTES % (MANUAL) 19 %; NEUTROPHILS % (MANUAL) 39 %; RBC MORPH NORMAL
[2020-10-12] MEDS ORDERED: cloNIDine 0.2 MG (CATAPRES) TAB PO ONE (12:30)
[2020-10-12 12:45] VITALS: BP 151/108
== END 2020-10-12 12:45 | disposition home or self-care (01) ==
LOC: EDUNIT# 10:49 → ER 10:50
DX: R25.8 Other abnormal involuntary movements (principal); Z96.643 Presence of artificial hip joint, bilateral; Z79.52 Long term (current) use of systemic steroids
CPT/HCPCS: 36415; 70450; 80053; 80306; 81000; 82962; 84145; 84146; 85007; 85027; 85610; 85730; 86141; 93005

== ENCOUNTER 2022-06-14 14:03 | Inpatient (IN) | payer MEDICAID ==
[~2022-06-14] VITALS: Ht 167.7 cm; Wt 77.3 kg
[~2022-06-14 14:03] MED LIST changes: +CYCL10TA25 PO; -CYCL10TA9 PO
--- NOTE | 2022-06-14 14:40 | ED General ---
General Chief Complaint: Chest Pain Stated Complaint: CHEST PAIN/ELEVATED BP Nursing Triage Note: PT AMB TO RM 7 PT CO OF CHEST PAIN, PT HAS HX OF J AR HAS HAD A FLARE UP AND WAS STARTED ON PREDNISONE ON WEDNESDAY. PT HAS SORE THROAT, BODY ACHES. (AIDEN KERNS) History of Present Illness Date Seen by Provider: Jun 14, 2022 Time Seen by Provider: 14:25 Initial Comments 22 yo male with pmhx of JAR and GERD here for CP and elevated BP. Pt says this started yesterday evening and he has felt a constant tightness in the substernal region that does not radiate. He rates the pain as 7/10. Has associated SOB on exertion and sore throat. Denies any lightheadedness, N/V/D. Currently having a RA flare and was prescribed Prednisone wednesday which he has been taking as indicated. No recent travel or sick contacts. Pt does not have covid or flu vaccine. No hx of HTN but HTN runs in family. (AIDEN KERNS) Allergies and Home Medications Allergies Coded Allergies: JOSE DE JESUSANo Known Allergies (Verified Allergy, Unknown, 01/14/06) Patient Home Medication List Home Medication List Reviewed: Yes (AIDEN KERNS) Acetaminophen (Tylenol Extra Strength) 500 Mg Tablet, 500-1,000 MG PO Q8H PRN for PAIN-MILD (1-4), (Reported) Entered as Reported by: ANA RAMIREZ on 06/15/221146 Last Action: Held Hydrocodone/Acetaminophen (Hydrocodone-Acetamin 5-325 mg) 5 Mg-325 Mg Tablet, 1 TAB PO BID PRN for PAIN-MODERATE (5-7), (Reported) Entered as Reported by: ANA RAMIREZ on 06/15/221146 Last Action: Held Omeprazole (Omeprazole) 20 Mg Capsule.dr, 20 MG PO DAILY, (Reported) Entered as Reported by: ANA RAMIREZ on 06/15/221146 Last Action: Continued Paroxetine HCl (Paroxetine HCl) 20 Mg Tablet, 20 MG PO DAILY, (Reported) Entered as Reported by: ANA RAMIREZ on 06/15/221146 Last Action: Continued Prednisone (Prednisone) 20 Mg Tab, 40 MG PO BID, (Reported) Entered as Reported by: ANA RAMIREZ on 12/12/22 1147 Last Action: Held Tofacitinib Citrate (Xeljanz) 5 Mg Tablet, 5 MG PO BID, (Reported) Entered as Reported by: ANA RAMIREZ on 06/15/22 114 Last Action: Held Discontinued Medications Cyclobenzaprine HCl (Cyclobenzaprine HCl) 10 Mg Tablet, 10 MG PO Q8H Discontinued Reason: No Longer Taking Prescribed by: MAGDALENA SUN on 07/16/19 1243 Last Action: Discontinued Methylprednisolone (Medrol Dose Pack) 4 Mg/Dose-Pack Tab.ds.pk, 0 PO UD Discontinued Reason: No Longer Taking Prescribed by: MAGDALENA SUN on 01/22/15 2249 Last Action: Discontinued Prednisone (Prednisone) 20 Mg Tab, 40 MG PO DAILY Discontinued Reason: No Longer Taking Prescribed by: MAGDALENA SUN on 07/16/19 124 Last Action: Discontinued Review of Systems Review of Systems Constitutional: No chills, No diaphoresis, No dizziness, No fever, No malaise, No weakness EENTM: see HPI, no symptoms reported Respiratory: No cough, No dyspnea on exertion, No hemoptysis, No orthopnea; short of breath Cardiovascular: chest pain; No palpitations Gastrointestinal: no symptoms reported Genitourinary: no symptoms reported Musculoskeletal: no symptoms reported, joint pain (RA flare ) Skin: no symptoms reported Psychiatric/Neurological: No Symptoms Reported Hematologic/Lymphatic: No Symptoms Reported Immunological/Allergic: no symptoms reported (AIDEN KERNS) Past Qmvahtj-Xxwzsm-Knrhms Hx Patient Social History Tobacco Use?: No Substance use?: No Alcohol Use?: No Pt feels they are or have been: No (AIDEN KERNS) Immunizations Up To Date Influenza Vaccine Up-to-Date: No; Not Current (AIDEN KERNS) Past Medical History Surgery/Hospitalization HX: [place] RA, TOTAL HIP BILATERALLY Surgeries: Yes (BILATERAL TOTAL HIP REPLACEMENTS 2014) Joint Replacement, Orthopedic Respiratory: No Cardiac: Yes Pericarditis Neurological: No Genitourinary: No Gastrointestinal: No Musculoskeletal: Yes (JUVENILE R.A. DX AGE 1; OSTEOPENIA; S/P BILATERAL HIP REPLACEMENTS 2014) Arthritis, Rheumatoid Arthritis Endocrine: No HEENT: No Cancer: No Psychosocial: Yes (SUICIDAL IDEATION) Anxiety, Depression Integumentary: No Blood Disorders: No (AIDEN KERNS) Physical Exam Vital Signs Vital Signs - First Documented 06/14/22 14:15 Temp 38.7 Pulse 123 Resp 98 B/P (MAP) 171/101 (124) (ADÁN LOVELACE MD) Vital Signs Capillary Refill : Less Than 3 Seconds (AIDEN KERNS) Height, Weight, BMI Height: 5'5.00" Weight: 120lbs. oz. 54.774582sj; 25.00 BMI Method:Stated General Appearance: No Apparent Distress, WD/WN HEENT: PERRL/EOMI, TMs Normal, Normal ENT Inspection, Pharynx Normal Neck: Full Range of Motion, Normal Inspection, Non Tender, Supple Respiratory: Chest Non Tender, Lungs Clear, Normal Breath Sounds, No Accessory Muscle Use, No Respiratory Distress Cardiovascular: Regular Rate, Rhythm, No Edema, No Gallop, No JVD, No Murmur, Normal Peripheral Pulses Gastrointestinal: Normal Bowel Sounds, No Organomegaly, Non Tender, Soft Back: Normal Inspection, No CVA Tenderness, No Vertebral Tenderness Extremity: Normal Capillary Refill, Normal Inspection, Normal Range of Motion, Non Tender, No Calf Tenderness Neurologic/Psychiatric: Alert, Oriented x3, No Motor/Sensory Deficits, Normal Mood/Affect, 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 Norm as Tested Skin: Normal Color, Warm/Dry Lymphatic: No Adenopathy (AIDEN KERNS) Progress/Results/Core Measures Suspected Sepsis SIRS Temperature: Pulse: 123 Respiratory Rate: 98 Blood Pressure 171 /101 Mean: 124 (AIDEN KERNS) SIRS (ADÁN LOVELACE MD) Results/Orders Lab Results Laboratory Tests Test 06/14/22 14:24 06/14/22 15:40 Range/Units Influenza Type A (RT-PCR) Not Detected Not Detecte Influenza Type B (RT-PCR) Not Detected Not Detecte SARS-CoV-2 RNA (RT-PCR) Not Detected Not Detecte White Blood Count 24.2 H 4.3-11.0 10^3/uL Red Blood Count 5.20 4.30-5.52 10^6/uL Hemoglobin 14.6 13.3-17.7 g/dL Hematocrit 43 40-54 % Mean Corpuscular Volume 84 80-99 fL Mean Corpuscular Hemoglobin 28 25-34 pg Mean Corpuscular Hemoglobin Concent 34 32-36 g/dL Red Cell Distribution Width 14.6 H 10.0-14.5 % Platelet Count 395 130-400 10^3/uL Mean Platelet Volume 10.7 9.0-12.2 fL Immature Granulocyte % (Auto) 1 % Neutrophils (%) (Auto) 90 H 42-75 % Lymphocytes (%) (Auto) 3 L 12-44 % Monocytes (%) (Auto) 6 0-12 % Eosinophils (%) (Auto) 0 0-10 % Basophils (%) (Auto) 0 0-10 % Neutrophils # (Auto) 21.7 H 1.8-7.8 10^3/uL Lymphocytes # (Auto) 0.8 L 1.0-4.0 10^3/uL Monocytes # (Auto) 1.5 H 0.0-1.0 10^3/uL Eosinophils # (Auto) 0.0 0.0-0.3 10^3/uL Basophils # (Auto) 0.0 0.0-0.1 10^3/uL Immature Granulocyte # (Auto) 0.2 H 0.0-0.1 10^3/uL Neutrophils % (Manual) 93 % Lymphocytes % (Manual) 4 % Monocytes % (Manual) 1 % Eosinophils % (Manual) 0 % Basophils % (Manual) 0 % Band Neutrophils 2 % Blood Morphology Comment NORMAL Erythrocyte Sedimentation Rate 28 H 0-15 MM/HR Prothrombin Time 13.5 12.2-14.7 SEC INR Comment 1.0 0.8-1.4 Activated Partial Thromboplast Time 26 24-35 SEC Sodium Level 139 135-145 MMOL/L Potassium Level 3.8 3.6-5.0 MMOL/L Chloride Level 104 98-107 MMOL/L Carbon Dioxide Level 22 21-32 MMOL/L Anion Gap 13 5-14 MMOL/L Blood Urea Nitrogen 9 7-18 MG/DL Creatinine 0.66 0.60-1.30 MG/DL Estimat Glomerular Filtration Rate 134 BUN/Creatinine Ratio 14 Glucose Level 118 H 70-105 MG/DL Calcium Level 9.6 8.5-10.1 MG/DL Corrected Calcium 9.3 8.5-10.1 MG/DL Magnesium Level 1.7 1.6-2.4 MG/DL Total Bilirubin 0.3 0.1-1.0 MG/DL Aspartate Amino Transf (AST/SGOT) 22 5-34 U/L Alanine Aminotransferase (ALT/SGPT) 37 0-55 U/L Alkaline Phosphatase 82 40-136 U/L Troponin I < 0.028 <0.028 NG/ML C-Reactive Protein High Sensitivity 12.69 H 0.00-0.50 MG/DL Total Protein 8.0 6.4-8.2 GM/DL Albumin 4.4 3.2-4.5 GM/DL Procalcitonin 0.10 H <0.10 NG/ML (ADÁN LOVELACE MD) My Orders Orders - ADÁN LOVELACE MD Ekg Tracing (06/14/22 14:17) Cbc With Automated Diff (06/14/22 14:45) Magnesium (06/14/22 14:45) Chest 1 View, Ap/Pa Only (06/14/22 14:45) Comprehensive Metabolic Panel (06/14/22 14:45) Protime With Inr (06/14/22 14:45) Partial Thromboplastin Time (06/14/22 14:45) O2 (06/14/22 14:45) Monitor-Rhythm Ecg Trace Only (06/14/22 14:45) Ed Iv/Invasive Line Start (06/14/22 14:45) Troponin I Page (06/14/22 14:45) Sucralfate Tablet (Carafate Tablet) (06/14/22 14:45) Antacid Suspension (Mylanta Suspension (06/14/22 14:45) Lidocaine 2% Viscous 15 Ml (Xylocaine Vi (06/14/22 14:45) Covid 19 Inhouse Test (06/14/22 14:51) Influenza A And B By Pcr (06/14/22 14:51) Isolation Central Supply Req (06/14/22 14:51) Ns Iv 1000 Ml (Sodium Chloride 0.9%) (06/14/22 14:51) Acetaminophen Tablet (Tylenol Tablet) (06/14/22 15:00) Manual Differential (06/14/22 15:40) Hs C Reactive Protein (06/14/22 15:59) Procalcitonin (Pct) (06/14/22 15:59) Erythrocyte Sedimentation Rate (06/14/22 16:03) Blood Culture (06/14/22 17:07) Urine Culture (06/14/22 17:07) Ua Culture If Indicated (06/14/22 17:07) Lactic Acid Analyzer (06/14/22 17:07) Cefepime Injection (Maxipime Injection) (06/14/22 17:15) Vancomycin Injection (Vancomycin Injecti (06/14/22 17:15) Ed Admission (Communication) (06/14/22 17:09) (ADÁN LOVELACE MD) Medications Given in ED (ADÁN LOVELACE MD) Vital Signs/I&O 06/14/22 14:15 Temp 38.7 Pulse 123 Resp 98 B/P (MAP) 171/101 (124) (ADÁN LOVELACE MD) Vital Signs/I&O Capillary Refill : Less Than 3 Seconds (AIDEN KERNS) Blood Pressure Mean: 124 Progress Note : Time: 17:21 Progress Note 22-year-old male with a history of juvenile rheumatoid arthritis presents to the emergency room with a chief complaint of epigastric/lower chest pain onset a couple of days ago. Patient also has had a little bit of a sore throat. The discomfort in his chest is described as a "tightness". He is a little short of breath with exertion. He presents with a fever of 101 today. No nausea or vomiting. No abdominal pain. Does not feel lightheaded or dizzy. No cough. He does state it hurts to take a deep breath. He took some Tylenol yesterday without relief of symptoms. He was started on prednisone on Wednesday of last week for a rheumatoid arthritis flare and is left knee. He is a smoker. No recreational drug use or alcohol use. On Xeljanz. No sick contacts. Not flu or COVID vaccinated. Physical exam remarkable for tachycardia, fever. HEENT exam shows mild erythema in the posterior pharynx, no cervical lymphadenopathy. No exudate on the tonsil s. TMs are clear. He appears a little dry in his oral mucosa. Chest abdomen show even and unlabored respirations, lungs are clear, tachycardia, soft benign belly with bowel sounds present. Extremities left knee with effusion and very warm to touch, no overlying erythema. He has good range of motion of the left knee. Labs reviewed/work-up shows significant leukocytosis with left shift. Flu COVID-negative, chest x-ray concerning for bibasilar slight pneumonia. Renal function is normal. CRP and sed rate are slightly elevated. Discussed with Dr. Cyr, in light of his immunosuppression on Xeljanz and steroid use, with fever and leukocytosis and questionable chest x-ray will admit for broad-spectrum IV antibiotics and fluid rehydration. Pancultured. Patient is stable for the medical floor. (ADÁN LOVELACE MD) ECG Initial ECG Impression Date: Jun 14, 2022 Initial ECG Impression Time: 14:25 Initial ECG Rate: 121 Initial ECG Rhythm: S.Tach Initial ECG Intervals MS interval 120 QRS 97 QTC 410 Comment Sinus tachycardia with inverted T waves across V3, V4, V5 and V6. No ST segment elevation or depression. He also has a little T wave inversion inferiorly no ectopy is noted (ADÁN LOVELACE MD) Diagnostic Imaging Diagonstic Imaging: Xray Plain Films/CT/US/NM/MRI: chest Comments [facility], [place] NAME: TOD KELSEY [facility] REC#: [id number] PT STATUS: REG ER : 2000 PHYSICIAN: ADÁN LOVELACE MD ADMIT DATE: 06/14/22/ER Signed Date of Exam:06/14/22 CHEST 1 VIEW, AP/PA ONLY EXAMINATION: Chest, 1 view. HISTORY: Chest pain. Sore throat. COMPARISON: 01/22/2015. FINDINGS: Lung volumes are low. Bibasilar opacities are present. No pleural effusion. The cardiac silhouette is prominent although this may be secondary to the low lung volumes. IMPRESSION: Bibasilar opacities with low lung volumes. Findings may represent atelectasis or infection. Dictated by: Dictated on workstation # [id number] Dict: 06/14/22 1508 Trans: 06/14/22 1513 [facility] [id number] Interpreted by: CINTHIA JORGENSEN DO Electronically signed by: CINTHIA JORGENSEN DO 06/14/22 1513 (ADÁN LOVELACE MD) Departure Communication (Admissions) Time/Spoke to Admitting Phy: 17:[address] Cyr - will admit (ADÁN LOVELACE MD) Impression Primary Impression: Fever Qualified Codes: R50.9 - Fever, unspecified Additional Impressions: Pneumonia Qualified Codes: J18.9 - Pneumonia, unspecified organism Immunosuppression Juvenile rheumatoid arthritis of knee Qualified Codes: M08.062 - Unspecified juvenile rheumatoid arthritis, left knee Disposition: ADMITTED INPATIENT Condition: Stable Admissions Decision to Admit Reason: Admit from ER (General) Decision to Admit/Date: Jun 14, 2022 Time/Decision to Admit Time: 17:07 (ADÁN LOVELACE MD) Departure-Patient Inst. Referrals: ADRIANA DRUMMOND MD (PCP/Family) Primary Care Physician Verification and Attestation of Medical Student E/M Service A medical student performed and documented this service in my presence. I reviewed and verified all information documented by the medical student and made modifications to such information, when appropriate. I personally performed the physical exam and medical decision making. Adán Lovelace, Jun 14, 2022,15:31 (ADÁN LOVELACE MD) AIDEN KERNS Jun 14, 2022 14:40 ADÁN LOVELACE MD Jun 14, 2022 15:31
[2022-06-14] MEDS ORDERED: LIDOCAINE 2% VISCOUS 15 ML UDC PO ONE (14:45)
[2022-06-14] MEDS ORDERED: ANTACID SUSP 30 ML UDC (MYLANTA) PO ONE (14:45)
[2022-06-14] MEDS ORDERED: SUCRALFATE 1 GM (CARAFATE) TAB PO ONE (14:45)
[2022-06-14] MEDS ORDERED: NS IV 1000 ML 1,000 ML IV STA (14:51)
[2022-06-14] MEDS ORDERED: ACETAMINOPHEN 500 MG TAB (TYLENOL) PO ONE (15:00)
--- NOTE | 2022-06-14 15:12 | Diagnostic Imaging Report ---
EXAMINATION: Chest, 1 view. HISTORY: Chest pain. Sore throat. COMPARISON: 01/22/2015. FINDINGS: Lung volumes are low. Bibasilar opacities are present. No pleural effusion. The cardiac silhouette is prominent although this may be secondary to the low lung volumes. IMPRESSION: Bibasilar opacities with low lung volumes. Findings may represent atelectasis or infection. Dictated by: Dictated on workstation # [id number]
[2022-06-14 15:47] LABS: BASOPHILS % (AUTO) 0 % (0-10); EOSINOPHILS % (AUTO) 0 % (0-10); HEMATOCRIT 43 % (40-54); HEMOGLOBIN 14.6 g/dL (13.3-17.7); LYMPHOCYTES # (AUTO) 0.8 10^3/uL (1.0-4.0); LYMPHOCYTES % (AUTO) 3 % (12-44); MEAN CORPUSCULAR HEMOGLOBIN 28 pg (25-34); MEAN CORPUSCULAR HGB CONC 34 g/dL (32-36); MEAN CORPUSCULAR VOLUME 84 fL (80-99); MEAN PLATELET VOLUME 10.7 fL (9.0-12.2); MONOCYTES # (AUTO) 1.5 10^3/uL (0.0-1.0); MONOCYTES % (AUTO) 6 % (0-12); NEUTROPHILS # (AUTO) 21.7 10^3/uL (1.8-7.8); NEUTROPHILS % (AUTO) 90 % (42-75); PLATELET COUNT 395 10^3/uL (130-400); WHITE BLOOD COUNT 24.2 10^3/uL (4.3-11.0)
[2022-06-14 16:00] LABS: PROTHROMBIN TIME PATIENT 13.5 SEC (12.2-14.7)
[2022-06-14 16:06] LABS: ALBUMIN 4.4 GM/DL (3.2-4.5); BILIRUBIN,TOTAL 0.3 MG/DL (0.1-1.0); CALCIUM 9.6 MG/DL (8.5-10.1); CREATININE SERUM 0.66 MG/DL (0.60-1.30); MAGNESIUM 1.7 MG/DL (1.6-2.4); POTASSIUM 3.8 MMOL/L (3.6-5.0)
[2022-06-14 16:17] LABS: BAND NEUTROPHILS 2 %; BASOPHILS % (MANUAL) 0 %; EOSINOPHILS % (MANUAL) 0 %; LYMPHOCYTES % (MANUAL) 4 %; MONOCYTES % (MANUAL) 1 %; NEUTROPHILS % (MANUAL) 93 %; RBC MORPH NORMAL
[2022-06-14] MEDS ORDERED: CEFEPIME INJECTION 1,000 MG in NS (IVPB) 50 ML IV ONE (17:15)
[2022-06-14] MEDS ORDERED: VANCOMYCIN INJECTION 1,000 MG in NS (IVPB) 250 ML IV ONE (17:15)
[2022-06-14 17:24] LABS: BILIRUBIN,URINE NEGATIVE (NEGATIVE); CLARITY,URINE CLEAR; COLOR,URINE YELLOW; GLUCOSE, URINE (UA) NEGATIVE (NEGATIVE); KETONES,URINE NEGATIVE (NEGATIVE); LEUKOCYTE ESTERASE ,URINE NEGATIVE (NEGATIVE); NITRITE,URINE NEGATIVE (NEGATIVE); PH,URINE 7.5 (5-9); PROTEIN,URINE NEGATIVE (NEGATIVE)
[2022-06-14] MEDS ORDERED: HYDROcodone/APAP 7.5 MG/325 MG (LORTAB, LORCET PLUS) TABLET PO ONE (17:30)
[2022-06-14 17:35] LABS: BACTERIA,URINE NEGATIVE /HPF; RBC,URINE RARE /HPF
[2022-06-14] MEDS ORDERED: MILK OF MAGNESIA 400 MG/5 ML 30 ML UDC PO PRN (19:30)
[2022-06-14] MEDS ORDERED: BISACODYL 10 MG SUPP (DULCOLAX) PR PRN (19:30)
[2022-06-14] MEDS ORDERED: diphenhydrAMINE 25 MG TAB (BENADRYL) PO PRN (19:30)
[2022-06-14] MEDS ORDERED: ONDANSETRON 4 MG/2 ML (SDV) Z0FRAN IV PRN (19:30)
[2022-06-14] MEDS ORDERED: polyethylene glycoL POWDER 17 GM (MIRALAX) PACK PO PRN (19:30)
[2022-06-14] MEDS ORDERED: LACTULOSE SYRUP 10GM/15ML (ENULOSE) 30ML UDC PO PRN (19:30)
[2022-06-14] MEDS ORDERED: diphenhydrAMINE 50 MG/ML INJ (BENADRYL) IVP PRN (19:30)
[2022-06-14] MEDS ORDERED: ONDANSETRON 4 MG (ZOFRAN) ORAL DISSOLVE TAB PO PRN (19:30)
[2022-06-14] MEDS ORDERED: MELATONIN 3 MG TABLET PO PRN (19:30)
[2022-06-14] MEDS ORDERED: PHARMACY TO DOSE IV SCH (19:30)
[2022-06-14] MEDS: NS IV 1000 ML 1,000 ML IV SCH (20:10)
[2022-06-14] MEDS: SENNOSIDES 8.6 MG (SENOKOT) TAB PO SCH (20:11)
[2022-06-14] MEDS: DOCUSATE SODIUM 100 MG (COLACE) CAP PO SCH (20:11)
[2022-06-14] MEDS: CEFEPIME INJECTION 2,000 MG in NS (IVPB) 50 ML IV SCH (20:11)
[2022-06-14] MEDS: ENOXAPARIN 40 MG/0.4 ML (LOVENOX) SYR SC SCH (20:11)
[2022-06-14] MEDS ORDERED: VANCOMYCIN 500 MG/NS 100 ML IV ONE ×2 (21:30)
[2022-06-14] MEDS: CHLORASEPTIC SPRAY 177 ML LIQUID MC PRN (21:42)
[2022-06-14] MEDS ORDERED: RT-ALBUTEROL SULF 2.5 MG/3 ML PRE-MIX VIAL INH PRN (21:45)
[2022-06-14] MEDS: ACETAMINOPHEN 325 MG TABLET PO PRN (23:27)
[2022-06-14] MEDS ORDERED: RT-ALBUTEROL/IPRATROPIUM 3 ML (DUONEB) VIAL ONE (23:33)
[2022-06-15 00:05] VITALS: BP 135/79
[2022-06-15 01:25] VITALS: BP 133/79
[2022-06-15] MEDS: RT-ALBUTEROL SULF 2.5 MG/3 ML PRE-MIX VIAL INH SCH ×4 (02:37→21:37)
[2022-06-15 02:40] VITALS: BP 131/79
[2022-06-15] MEDS: NS IV 1000 ML 1,000 ML IV SCH ×5 (03:15→19:30)
[2022-06-15 03:47] VITALS: BP 124/75
[2022-06-15 06:38] LABS: BASOPHILS % (AUTO) 0 % (0-10); EOSINOPHILS % (AUTO) 0 % (0-10); HEMATOCRIT 39 % (40-54); LYMPHOCYTES # (AUTO) 1.2 10^3/uL (1.0-4.0); LYMPHOCYTES % (AUTO) 5 % (12-44); MEAN CORPUSCULAR HEMOGLOBIN 28 pg (25-34); MEAN CORPUSCULAR HGB CONC 33 g/dL (32-36); MEAN CORPUSCULAR VOLUME 84 fL (80-99); MEAN PLATELET VOLUME 10.9 fL (9.0-12.2); MONOCYTES # (AUTO) 1.5 10^3/uL (0.0-1.0); MONOCYTES % (AUTO) 7 % (0-12); NEUTROPHILS # (AUTO) 19.1 10^3/uL (1.8-7.8); NEUTROPHILS % (AUTO) 86 % (42-75); PLATELET COUNT 332 10^3/uL (130-400); WHITE BLOOD COUNT 22.3 10^3/uL (4.3-11.0)
[2022-06-15 07:19] LABS: ALBUMIN 3.7 GM/DL (3.2-4.5); BILIRUBIN,TOTAL 0.6 MG/DL (0.1-1.0); CALCIUM 8.8 MG/DL (8.5-10.1); CREATININE SERUM 0.63 MG/DL (0.60-1.30); TOTAL PROTEIN 7.1 GM/DL (6.4-8.2)
[2022-06-15] MEDS: PANTOPRAZOLE 40 MG (PROTONIX) TAB PO SCH (08:18)
[2022-06-15] MEDS: VANCOMYCIN 1250 MG/NS 250 ML IVPB IV SCH ×6 (08:20→22:43)
[2022-06-15] MEDS: DOCUSATE SODIUM 100 MG (COLACE) CAP PO SCH ×2 (08:21→19:38)
[2022-06-15] MEDS: SENNOSIDES 8.6 MG (SENOKOT) TAB PO SCH ×2 (08:21→19:38)
[2022-06-15 08:48] VITALS: BP 156/94
[2022-06-15] MEDS: CEFEPIME INJECTION 2,000 MG in NS (IVPB) 50 ML IV SCH ×2 (10:01→20:48)
[2022-06-15] MEDS: KCL 20 MEQ TAB (K-DUR) PO SCH ×3 (10:02→19:38)
[2022-06-15] MEDS: ALPRAZolam 0.5 MG (XANAX) TAB PO PRN (10:32)
[2022-06-15] MEDS: HYDROmorphone 2 MG/ML VIAL (DILAUDID) IV PRN (10:36)
--- NOTE | 2022-06-15 11:15 | Diagnostic Imaging Report ---
INDICATION: Pneumonia. COMPARISON: 06/14/2022 FINDINGS: Frontal and lateral radiograph views of the chest were obtained and show mild enlargement of the cardiac silhouette. There is crowing of the central hilar structures secondary to low inspiratory volumes. Patchy airspace opacities in the right base have increased since prior exam. There is no large effusion or pneumothorax. IMPRESSION: 1. Increased patchy airspace disease in the right base concerning for pneumonia and/or atelectasis. 2. Enlargement of the cardiac silhouette, which may be exaggerated by portable technique. Dictated by: Dictated on workstation # [id number]
[2022-06-15 11:39] VITALS: BP 166/107
[2022-06-15] MEDS ORDERED: OMEP20CA18 PO (11:47)
[2022-06-15] MEDS ORDERED: ACET-2267 PO (11:47)
[2022-06-15] MEDS ORDERED: TOFA5TAB PO (11:47)
[2022-06-15] MEDS ORDERED: PRD20T PO (11:47)
[2022-06-15] MEDS ORDERED: ACHD5005 PO (11:47)
[2022-06-15] MEDS ORDERED: PARO20TA5 PO (11:47)
[2022-06-15] MEDS: CHLORASEPTIC SPRAY 177 ML LIQUID MC PRN (11:57)
[2022-06-15] MEDS ORDERED: NS IV 500 ML 500 ML IV PRN (12:15)
[2022-06-15] MEDS: ACETAMINOPHEN 325 MG TABLET PO PRN ×2 (12:55→19:37)
[2022-06-15 13:16] LABS: ABG BASE EXCESS 1.1 MMOL/L (-2.5-2.5); ABG OXYGEN SATURATION 97 % (94-100); ABG PCO2 38 MMHG (35-45); ABG PH 7.44 (7.37-7.43); ABG PO2 76 MMHG (79-93); ABG TCO2 25.9 MMOL/L (21.0-31.0)
[2022-06-15 13:17] LABS: ALLENS TEST YES-POS; INSPIRED O2 2; PATIENT TEMP 37.8; VENTILATOR NO
--- NOTE | 2022-06-15 13:37 | History & Physical-Hospitalist ---
[facility] 06/15/22 1337: History of Present Illness HPI/Chief Complaint This is a 22 y WM with PMH of JRA, GERD, anxiety who presented to the ED on 06/14/22 with CP and elevated BP. He had a sore throat and increased joint pain starting 06/11 and was seen by Dr. Okeefe in clinic 06/12 where he was started on prednisone. He developed substernal CP on 06/13 that he is still having. He describes this as a constant sharp pain in the substernal/epigastric region that does not radiate and is an 8/10 in severity. Also having SOB with exertion. The CP and SOB improve with oxygen and worsen with talking or moving. He has also had a fever while in the hospital, Tmax 39 C. Denies n/v/d, cough, rhinorrhea. He is a current smoker of less than 1 ppd of cigarettes for the past 10 months. CXR 06/14 showed bibasilar opacities. He is on vancomycin and cefepime. Flu and COVID negative on 06/14. ESR, CRP and WBC count elevated. Troponin negative 06/14. EKG 06/15 with sinus tachycardia and moderate T-wave abnormalities. His mother is at bedside and contributes to history. Notes he is having a RA flare of the left knee with pain and swelling. Source: patient, family Exam Limitations: no limitations Date Seen 06/15/22 Time Seen by a Provider: 09:45 Attending Physician Diogenes Benavidez MD PCP Admitting Physician: Yue Levi DO Attending Physician: Yue Levi DO Referring Physician Date of Admission Jun 15, 2022 at 10:00 Home Medications & Allergies Home Medications Reviewed patient Home Medication Reconciliation performed by pharmacy medication reconciliations podiatric technician and/or nursing. Patients Allergies have been reviewed. Allergies Allergies Coded Allergies NKANo Known Allergies (Verified Allergy, Unknown, 01/14/06) Past Fczrtla-Yaluvb-Ctcejh Hx Patient Social History Tobacco Use?: Yes Tobacco type used: Cigarettes Smoking Status: Current Someday Smoker Use of E-Cig and/or Vaping dev: No Substance use?: No Alcohol Use?: No Pt feels they are or have been: No Immunizations Up To Date Tetanus Booster (TDap): More Than 5 Years Hepatitis A: No Hepatitis B: No Current Status Advance Directives: No Communicates: Verbally Primary Language: Chinese Preferred Spoken Language: Chinese Is interpretation needed?: No Sensory deficits: Vision impairment Implanted or Applied Medical D: Orthopedic hardware Past Medical History Surgeries: Joint Replacement (bilateral hips), Orthopedic Pericarditis Gastroesophageal Reflux Arthritis, Rheumatoid Arthritis Anxiety, Depression Blood Disorders: No Family Medical History Hypertension (mother and father) Review of Systems Constitutional: No chills, No diaphoresis EENTM: throat pain; No nose congestion Respiratory: No cough; short of breath Cardiovascular: chest pain (substernal pain); No palpitations Gastrointestinal: No diarrhea, No nausea, No vomiting Genitourinary: No decreased output, No dysuria; other (dark yellow urine) Musculoskeletal: joint pain (RA flare), joint swelling (left knee) Psychiatric/Neurological: Anxiety Physical Exam Physical Exam Vital Signs Vital Signs - First Documented 06/14/22 06/14/22 06/14/22 06/14/22 14:15 18:16 21:26 23:44 Temp 38.7 Pulse 123 Resp 98 B/P (MAP) 171/101 (124) Pulse Ox 98 O2 Delivery Room Air O2 Flow Rate 0.00 FiO2 21 Capillary Refill : Less Than 3 Seconds Height, Weight, BMI Height: 5'5.00" Weight: 120lbs. oz. 54.468522ud; 26.88 BMI Method:Stated General Appearance: No Apparent Distress, WD/WN HEENT: PERRL/EOMI, Moist Mucous Membranes Neck: Non Tender, Supple Respiratory: Chest Non Tender, Lungs Clear, Normal Breath Sounds, No Accessory Muscle Use, No Respiratory Distress Cardiovascular: No Murmur, Normal Peripheral Pulses, Tachycardia Gastrointestinal: Non Tender, Soft Extremity: Normal Capillary Refill, No Pedal Edema, Swelling (left knee) Neurologic/Psychiatric: Alert, Oriented x3, No Motor/Sensory Deficits Skin: Normal Color, Warm/Dry Results Results/Procedures Labs Laboratory Tests 06/14/22 15:40 06/15/22 05:50 Patient resulted labs reviewed. Imaging: Reviewed Imaging Report Assessment/Plan Admission Diagnosis Presumed Pneumonia Admission Status: Inpatient Order (span 2 midnights) Reason for Inpatient Admission: Immunosuppressed with fever and leukocytosis and questionable chest x-ray, admit for broad-spectrum IV antibiotics and fluid rehydration. Assessment and Plan Presumed pneumonia - fever, leukocytosis Immunosuppression Hypokalemia Juvenile rheumatoid arthritis Current smoker Anxiety GERD S/p b/l hip replacements Albuterol nebs vanc and cefepime K replacement Pain control Clinical Quality Measures AMI/AHF: ASA po Prior to arrival: No YUE LEVI DO 06/16/22 0507: History of Present Illness Source: patient, family Exam Limitations: no limitations, clinical condition Past Tzoxbll-Bjpqpg-Suyaou Hx Patient Social History Marrital Status: single Employed/Student: unemployed Smoking Status: Never a Smoker Past Medical History Surgeries: Joint Replacement (bilateral hips), Orthopedic Gastroesophageal Reflux Review of Systems Constitutional: see HPI, dizziness, fever, malaise, weakness Musculoskeletal: joint pain (RA flare), joint swelling (left knee) Physical Exam Physical Exam General Appearance: Anxious, Chronically ill, Mild Distress Respiratory: Lungs Clear, Accessory Muscle Use, Decreased Breath Sounds Cardiovascular: Tachycardia Neurologic/Psychiatric: Alert, Oriented x3 Assessment/Plan Admission Diagnosis Assessment: Sepsis Tachycardia RA flare Plan: ICU transfer Vapotherm IV abx ach Admission Status: Inpatient Order (span 2 midnights) Reason for Inpatient Admission: sepsis Supervisory-Addendum Brief Verification & Attestation Participated in pt care: history, MDM, physical Personally performed: exam, history, MDM, supervision of care Care discussed with: Medical Student Procedures: n/a Results interpretation: Verified all documentation Verification and Attestation of Medical Student E/M Service A medical student performed and documented this service in my presence. I reviewed and verified all information documented by the medical student and made modifications to such information, when appropriate. I personally performed the physical exam and medical decision making. Yue Levi Jun 16, 2022,05:04 CHARLES DOYLE Jun 15, 2022 13:37 YUE LEVI DO Jun 16, 2022 05:07
--- NOTE | 2022-06-15 13:58 | Tele-ICU Consult ---
History of Present Illness History of Present Illness Date Seen by Provider: Jun 15, 2022 Time Seen by Provider: 13:52 History of Present Illness eICU admit note 22 yo M admitted with cc of substernal CP, fever and SOB, CXR shows bilateral lower lobe opacities, CXR shows elevation of both diaphragms, ? pulm art enlarged Main c/o is sore throat, In mild resp distress with spont RR rate in 30's Started on IV Vanco, Cefepim, Covid, flu serology neg LA 1.5, CRP elevated at 12 EKG shows sinus tachycardia, does not look like pericarditis, started on po prednisone PMH JRA GERD, Allergies and Home Medications Allergies Coded Allergies: NKANo Known Allergies (Verified Allergy, Unknown, 01/14/06) Home Medications Acetaminophen 500 Mg Tablet, 500-1,000 MG PO Q8H PRN for PAIN-MILD (1-4), (Reported) Hydrocodone/Acetaminophen 5 Mg-325 Mg Tablet, 1 TAB PO BID PRN for PAIN-MODERATE (5-7), (Reported) Omeprazole 20 Mg Capsule.dr, 20 MG PO DAILY, (Reported) Paroxetine HCl 20 Mg Tablet, 20 MG PO DAILY, (Reported) Prednisone 20 Mg Tab, 40 MG PO BID, (Reported) FILLED 06-12-2022 #20/5 DAY SUPPLY TAKES 2 (20MG) TABS Tofacitinib Citrate 5 Mg Tablet, 5 MG PO BID, (Reported) Past Medical/Social/Family Hx Patient Social History Tobacco Use?: Yes Tobacco type used: Cigarettes Smoking Status: Current Someday Smoker Use of E-Cig and/or Vaping dev: No Substance use?: No Alcohol Use?: No Pt stated abuse/neglect: No Immunizations Up To Date Influenza Vaccine Up-to-Date: No; Not Current Tetanus Booster (TDap): More Than 5 Years Hepatitis A: No Hepatitis B: No Current Status Advance Directives: No Communicates: Verbally Primary Language: Macedonian Preferred Spoken Language: Macedonian Is interpretation needed?: No Sensory deficits: Vision impairment Implanted or Applied Medical D: Orthopedic hardware Review of Systems Constitutional: see HPI, fever EENTM: see HPI, throat pain Respiratory: see HPI Cardiovascular: see HPI Gastrointestinal: see HPI Genitourinary: see HPI Musculoskeletal: see HPI Skin: see HPI Psychiatric/Neurological: See HPI Focused Exam Lactate Level 06/14/22 17:34: Lactic Acid Level 1.54 Height, Weight, BMI Height: 5'5.00" Weight: 120lbs. oz. 54.041062cv; 26.88 BMI Method:Stated Exam Exam Patient acknowledged, consented, and participated in this virtual visit which was conducted using real time audio/video Vital Signs Date Time Temp Pulse Resp B/P (MAP) Pulse Ox O2 Delivery O2 Flow Rate FiO2 06/15/22 12:29 126 06/15/22 11:39 37.4 127 20 166/107 (126) 96 Nasal Cannula 06/15/22 10:11 93 Room Air 1.00 06/15/22 08:48 36.3 114 16 156/94 (114) 93 06/15/22 07:18 114 06/15/22 03:47 36.9 125 20 124/75 (91) 95 Room Air 06/15/22 02:40 36.9 121 16 131/79 (96) 96 Nasal Cannula 06/15/22 02:37 88 Room Air 0.00 06/15/22 01:25 38.0 115 18 133/79 (97) 90 Room Air 06/15/22 01:00 116 06/15/22 00:05 39.0 110 20 135/79 (97) 93 Room Air 06/14/22 23:57 38.9 06/14/22 23:44 90 Room Air 0.00 06/14/22 23:27 39.0 06/14/22 21:26 38.7 123 98 21 06/14/22 21:00 100 06/14/22 19:48 Room Air 06/14/22 18:16 80 98 138/89 Room Air 06/14/22 14:15 38.7 123 98 171/101 (124) I & O 06/15/22 07:00 Intake Total 2070 ml Output Total 800 ml Balance 1270 ml Height & Weight Height: 5'5.00" Weight: 120lbs. oz. 54.755177zw; 26.88 BMI Method:Stated General Appearance: No Apparent Distress, WD/WN, Mild Distress, Moderate Distress HEENT: PERRL/EOMI, TMs Normal, Normal ENT Inspection, Pharynx Normal Neck: Full Range of Motion, Normal Inspection, Non Tender, Supple Respiratory: Chest Non Tender, Lungs Clear, Normal Breath Sounds, No Accessory Muscle Use, No Respiratory Distress, Decreased Breath Sounds Cardiovascular: Regular Rate, Rhythm, No Edema, No Gallop, No JVD, No Murmur, Normal Peripheral Pulses, Tachycardia Capillary Refill: Less Than 3 Seconds Gastrointestinal: normal bowel sounds, non tender, soft Extremity: Normal Capillary Refill, Normal Inspection, Normal Range of Motion, Non Tender, No Calf Tenderness, No Pedal Edema, Other (left knee, knuckles in both hands swollen) Neurologic/Psychiatric: Alert, Oriented x3, No Motor/Sensory Deficits, Normal Mood/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
[2022-06-15] MEDS ORDERED: NS 100 ML (IVPB) BAG IV ONE (14:45)
[2022-06-15] MEDS ORDERED: HOLD METFORMIN - RECEIVED CONTRAST 20 ML VIAL IV SCH (14:45)
[2022-06-15] MEDS ORDERED: CATHETER FLUSH 10 ML SYR IV PRN (14:45)
[2022-06-15] MEDS ORDERED: IOHEXOL 350 MG/ML 100 ML (OMNIPAQUE 350) VIAL IV ONE (14:45)
--- NOTE | 2022-06-15 15:23 | Diagnostic Imaging Report ---
PROCEDURE: CT angiography of the chest with contrast. TECHNIQUE: Multiple contiguous axial images were obtained through the chest after uneventful bolus administration of intravenous contrast. 3D reconstructed CTA MIP acquisitions were also performed. Auto Exposure Controls were utilized during the CT exam to meet ALARA standards for radiation dose reduction. INDICATION: Chest pain, shortness of air. Comparison is made with prior chest from 01/22/2015. Evaluation of pulmonary arterial system is without evidence of thromboembolism. No definite filling defects are seen within central, lobar segmental branches. Thoracic aorta is normal caliber. There is no dissection. The heart is enlarged. There is a small pericardial effusion. There appears to be some infiltrate bilateral lower lobes and the right middle lobe. Upper abdomen does show hepatic steatosis. IMPRESSION: 1. No evidence of pulmonary embolism or acute aortic disease. 2. Cardiomegaly. 3. Small pericardial effusion. 4. Bibasilar pulmonary infiltrates. Dictated by: Dictated on workstation # [id number]
[2022-06-15] MEDS: ENOXAPARIN 40 MG/0.4 ML (LOVENOX) SYR SC SCH (20:48)
[2022-06-15] MEDS: CALCIUM CARBONATE 500 MG (TUMS) TAB.CHEW PO PRN (21:45)
[2022-06-15] MEDS ORDERED: TROUGH ORDER-PHARMACY XX NR (22:00)
[2022-06-15] MEDS: ANTACID SUSP 30 ML UDC (MYLANTA) PO PRN (22:33)
[2022-06-16] MEDS: NS IV 1000 ML 1,000 ML IV SCH (01:24)
[2022-06-16 01:41] VITALS: BP 116/71
[2022-06-16 02:42] LABS: ABG BASE EXCESS 1.3 MMOL/L (-2.5-2.5); ABG OXYGEN SATURATION 95 % (94-100); ABG PCO2 38 MMHG (35-45); ABG PH 7.44 (7.37-7.43); ABG PO2 70 MMHG (79-93)
[2022-06-16 02:47] LABS: ALLENS TEST YES-POS
[2022-06-16 02:48] LABS: INSPIRED O2 RA; PATIENT TEMP 38.1; VENTILATOR NO
[2022-06-16] MEDS: RT-ALBUTEROL SULF 2.5 MG/3 ML PRE-MIX VIAL INH SCH ×6 (02:55→22:13)
[2022-06-16 05:39] LABS: BASOPHILS # (AUTO) 0.1 10^3/uL (0.0-0.1); BASOPHILS % (AUTO) 0 % (0-10); EOSINOPHILS # (AUTO) 0.1 10^3/uL (0.0-0.3); EOSINOPHILS % (AUTO) 0 % (0-10); HEMATOCRIT 40 % (40-54); HEMOGLOBIN 13.1 g/dL (13.3-17.7); LYMPHOCYTES # (AUTO) 1.2 10^3/uL (1.0-4.0); LYMPHOCYTES % (AUTO) 5 % (12-44); MEAN CORPUSCULAR HEMOGLOBIN 28 pg (25-34); MEAN CORPUSCULAR HGB CONC 32 g/dL (32-36); MEAN CORPUSCULAR VOLUME 86 fL (80-99); MEAN PLATELET VOLUME 11.2 fL (9.0-12.2); MONOCYTES # (AUTO) 1.4 10^3/uL (0.0-1.0); MONOCYTES % (AUTO) 6 % (0-12); NEUTROPHILS # (AUTO) 21.5 10^3/uL (1.8-7.8); NEUTROPHILS % (AUTO) 88 % (42-75); PLATELET COUNT 363 10^3/uL (130-400); WHITE BLOOD COUNT 24.4 10^3/uL (4.3-11.0)
[2022-06-16] MEDS: VANCOMYCIN 1250 MG/NS 250 ML IVPB IV SCH ×2 (06:17)
[2022-06-16] MEDS: POTASSIUM CL 10MEQ/50ML IVPB 50 ML IV SCH (06:18)
[2022-06-16] MEDS: KCL 20 MEQ TAB (K-DUR) PO SCH ×4 (06:19→20:40)
[2022-06-16] MEDS: MAGNESIUM 1 GM/100 ML IVPB 100 ML IV SCH ×3 (06:19→06:40)
[2022-06-16 07:45] LABS: ALBUMIN 3.4 GM/DL (3.2-4.5); BILIRUBIN,TOTAL 0.6 MG/DL (0.1-1.0); CALCIUM 9.1 MG/DL (8.5-10.1); CREATININE SERUM 0.57 MG/DL (0.60-1.30); MAGNESIUM 1.8 MG/DL (1.6-2.4); PHOSPHORUS 1.3 MG/DL (2.3-4.7); POTASSIUM 3.1 MMOL/L (3.6-5.0); TOTAL PROTEIN 7.1 GM/DL (6.4-8.2)
[2022-06-16] MEDS: PANTOPRAZOLE 40 MG (PROTONIX) TAB PO SCH (08:43)
[2022-06-16] MEDS: CEFEPIME INJECTION 2,000 MG in NS (IVPB) 50 ML IV SCH ×2 (08:44→20:40)
[2022-06-16] MEDS: SENNOSIDES 8.6 MG (SENOKOT) TAB PO SCH ×2 (09:00→20:14)
[2022-06-16] MEDS: DOCUSATE SODIUM 100 MG (COLACE) CAP PO SCH ×2 (09:00→20:14)
--- NOTE | 2022-06-16 09:12 | Diagnostic Imaging Report ---
INDICATION: Dyspnea. Comparison with 06/14/2022. FINDINGS: There has been continued volume loss in the lungs. Increasing bilateral diffuse infiltrates have developed since previous exam with rather dense groundglass appearance. Heart is upper limits of normal. No pneumothorax. Could not exclude pleural effusion. IMPRESSION: 1. Development of atelectasis. 2. Developing diffuse groundglass infiltrates. Dictated by: Dictated on workstation # [id number]
--- NOTE | 2022-06-16 11:11 | Tele-ICU Progress Note ---
Subjective Date Seen by a Provider: Jun 16, 2022 Time Seen by a Provider: 11:08 Subjective/Events-last exam (Tele-ICU Physician , Progress Note ) Service provided via interactive audio and video telecommunications E-CARE system to a patient admitted to ICU bed in [facility]. Available chart/ vitals / labs / Images reviewed Video assessment done using teleICU camera, rest of exam as per RN Discussed with RN Events overnight : Afebrile hemodynamically stable Respiratory - I/O = Drips: Pressors- no Consultants: Hospital course: 06-14: +Sev Sepsis Covid Neg - Inf A&B Neg 22 y/o M - ?Pneumonia - Chest Pain - Body Aches/^T. *(On Prednisone for RA Flare). 06-15: Tx to ICU for ^O2 Requirements & flagging for Sepsis. Patient is seen today due to persistent and new A/P Acute resp failure with PNA and developing VO - on VT 35 L 35 % - minimal secretions - IS. 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 on chronic steroids - ? to cont Anxiety Lines : perip , (Central Line Necessity Reviewed) Ewing: void OG: Nutrition: po Analgesia: Anxiety/ delirium xanax VTE Prophylaxis: alicia 40 Stress Ulcer Prophylaxis: ppi Plans in collaboration with bedside consultants and IM MDs. Discussed with RN to reach out if any questions or concerns A total of 34 minutes of critical care time was devoted to this patient today, required to treat and/or prevent further deterioration of critical care conditio n ( as above ) . I am remotely monitoring this patient from another state. I am unable to do the bedside exam, and history/physical and pertinent information is taken from other notes in the computer and bedside staff. Sepsis Event Evaluation Height, Weight, BMI Height: 5'5.00" Weight: 120lbs. oz. 54.963511ry; 28.51 BMI Method:Stated Focused Exam Lactate Level 06/14/22 17:34: Lactic Acid Level 1.54 Exam Exam Patient acknowledged, consented, and participated in this virtual visit which was conducted using real time audio/video Vital Signs Date Time Temp Pulse Resp B/P (MAP) Pulse Ox O2 Delivery O2 Flow Rate FiO2 06/16/22 10:00 129 29 122/89 (100) 96 Vapotherm 30.00 40.00 06/16/22 09:00 126 47 117/86 (96) 95 Vapotherm 30.00 40.00 06/16/22 08:00 121 43 119/81 (94) 95 Vapotherm 30.00 40.00 06/16/22 07:57 37.1 06/16/22 07:36 96 Vapotherm 30.00 40 06/16/22 07:00 123 06/16/22 07:00 126 53 127/87 (100) 98 Vapotherm 35.00 45.00 06/16/22 06:00 133 53 136/102 (113) 97 Vapotherm 35.00 45.00 06/16/22 05:00 129 37 134/97 (109) 95 Vapotherm 35.00 45.00 06/16/22 04:00 96 Vapotherm 35.00 45 06/16/22 04:00 38.0 Vapotherm 35.00 45.00 06/16/22 04:00 125 48 135/98 (110) 92 Vapotherm 35.00 45.00 06/16/22 03:00 128 54 133/98 (110) 91 Vapotherm 35.00 45.00 06/16/22 02:55 93 Vapotherm 35.00 45 06/16/22 02:37 Vapotherm 35.00 45.00 06/16/22 02:33 38.1 128 63 135/88 (104) 93 Vapotherm 30.00 45.00 06/16/22 01:41 36.2 125 90 45 06/16/22 01:00 128 55 132/90 (104) 92 Vapotherm 30.00 45.00 06/16/22 01:00 130 06/16/22 00:49 Vapotherm 30.00 45.00 06/16/22 00:00 131 57 116/71 (86) 94 Vapotherm 30.00 35.00 06/15/22 23:55 36.2 06/15/22 23:00 94 Vapotherm 30.00 35 06/15/22 23:00 122 30 113/72 (86) 96 Vapotherm 30.00 35.00 06/15/22 22:38 38.0 124 37 124/69 (87) 93 Vapotherm 30.00 35.00 06/15/22 22:00 125 65 124/69 (87) 94 Vapotherm 30.00 35.00 06/15/22 21:41 Vapotherm 30.00 35.00 06/15/22 21:37 92 Vapotherm 30.00 35 06/15/22 21:26 Vapotherm 25.00 30.00 06/15/22 21:00 125 43 138/77 (97) 91 Nasal Cannula 2.00 06/15/22 20:20 38.1 06/15/22 20:07 38.1 06/15/22 20:00 123 27 136/94 (108) 93 Nasal Cannula 2.00 06/15/22 19:43 37.4 06/15/22 19:37 38.8 06/15/22 19:20 93 Nasal Cannula 2.00 06/15/22 19:00 117 06/15/22 19:00 38.8 123 55 135/97 (110) 93 Nasal Cannula 2.00 06/15/22 18:00 123 31 133/94 (107) 95 Nasal Cannula 2.00 06/15/22 17:00 124 24 146/104 (118) 97 Nasal Cannula 2.00 06/15/22 16:00 122 15 136/99 (111) 95 Nasal Cannula 2.00 06/15/22 16:00 96 Nasal Cannula 2.00 06/15/22 16:00 36.5 06/15/22 15:53 96 Nasal Cannula 2.00 06/15/22 15:45 120 50 137/91 (106) 96 Nasal Cannula 2.00 06/15/22 15:30 116 51 138/96 (110) 96 Nasal Cannula 2.00 06/15/22 15:15 126 50 134/89 (104) 96 Nasal Cannula 2.00 06/15/22 14:45 121 50 113/75 (88) 96 Nasal Cannula 2.00 06/15/22 14:30 114 127/85 (99) 95 Nasal Cannula 2.00 06/15/22 14:15 117 136/86 (103) 96 Nasal Cannula 2.00 06/15/22 14:00 126 143/90 (107) 95 Nasal Cannula 2.00 06/15/22 13:45 126 134/91 (105) 96 Nasal Cannula 2.00 06/15/22 13:30 124 138/92 (107) 96 Nasal Cannula 2.00 06/15/22 13:15 123 35 149/106 (120) 97 Nasal Cannula 2.00 06/15/22 13:00 125 35 154/103 (120) 96 Nasal Cannula 2.00 06/15/22 12:45 128 146/98 (114) 95 Nasal Cannula 2.00 06/15/22 12:30 126 53 143/98 (113) 96 Nasal Cannula 2.00 06/15/22 12:29 126 06/15/22 12:16 95 Nasal Cannula 2.00 06/15/22 12:15 129 145/102 (116) 06/15/22 11:39 37.4 127 20 166/107 (126) 96 Nasal Cannula I & O 06/16/22 07:00 Intake Total 5400.0 ml Output Total 3600 ml Balance 1800.0 ml Height & Weight Height: 5'5.00" Weight: 120lbs. oz. 54.983781wq; 28.51 BMI Method:Stated General Appearance: Anxious, Chronically ill, Mild Distress HEENT: PERRL/EOMI, TMs Normal, Normal ENT Inspection, Pharynx Normal Neck: Full Range of Motion, Normal Inspection, Non Tender, Supple Respiratory: Lungs Clear, Accessory Muscle Use, Decreased Breath Sounds Cardiovascular: Tachycardia Capillary Refill: Less Than 3 Seconds Gastrointestinal: normal bowel sounds, non tender, soft Extremity: Normal Capillary Refill, Normal Inspection, Normal Range of Motion, Non Tender, No Calf Tenderness, No Pedal Edema, Other (left knee, knuckles in both hands swollen) Neurologic/Psychiatric: Alert, Oriented x3 Skin: Normal Color, Warm/Dry Lymphatic: No Adenopathy Results Lab Laboratory Tests 06/14/22 15:40 06/15/22 05:50 06/16/22 04:40 06/16/22 06:52 Assessment/Plan Assessment/Plan 1 AGUS LONDONO MD Jun 16, 2022 11:10
[2022-06-16] MEDS: ALPRAZolam 0.5 MG (XANAX) TAB PO PRN (11:41)
[2022-06-16] MEDS: HYDROCORTISONE 100 MG/2 ML (Solu-CORTEF) VIAL IV SCH ×3 (11:42→21:24)
[2022-06-16] MEDS: ACETAMINOPHEN 325 MG TABLET PO PRN ×2 (11:46→22:57)
--- NOTE | 2022-06-16 12:17 | Progress Note - Hospitalist ---
[facility] 06/16/22 1217: Subjective HPI/CC On Admission This is a 22 y WM with PMH of JRA, GERD, anxiety who presented to the ED on 06/14/22 with CP and elevated BP. He had a sore throat and increased joint pain starting 06/11 and was seen by Dr. Okeefe in clinic 06/12 where he was started on prednisone. He developed substernal CP on 06/13 that he is still having. He describes this as a constant sharp pain in the substernal/epigastric region that does not radiate and is an 8/10 in severity. Also having SOB with exertion. The CP and SOB improve with oxygen and worsen with talking or moving. He has also had a fever while in the hospital, Tmax 39 C. Denies n/v/d, cough, rhinorrhea. He is a current smoker of less than 1 ppd of cigarettes for the past 10 months. CXR 06/14 showed bibasilar opacities. He is on vancomycin and cefepime. Flu and COVID negative on 06/14. ESR, CRP and WBC count elevated. Troponin negative 06/14. EKG 06/15 with sinus tachycardia and moderate T-wave abnormalities. His mother is at bedside and contributes to history. Notes he is having a RA flare of the left knee with pain and swelling. Subjective/Events-last exam Pt was moved to the ICU yesterday afternoon due to increased oxygen requirements and sepsis concerns. He was started on Vapotherm. Today he reports feeling better than last night when he was moved up to the ICU. He still has substernal pain with coughing or deep breathing. He had a loose BM this morning and is urinating without issue. His mother is present and reports he had endocarditis a few years ago. CXR revealed development of atelectasis. Developing diffuse groundglass infiltrates. Review of Systems Pulmonary: No Dyspnea, No Cough Cardiovascular: Chest Pain (substernal) Gastrointestinal: No: Abdominal Pain Genitourinary: No Dysuria, No Frequency Focused Exam Lactate Level 06/14/22 17:34: Lactic Acid Level 1.54 Objective Exam Vital Signs Vital Signs Date Time Temp Pulse Resp B/P (MAP) Pulse Ox O2 Delivery O2 Flow Rate FiO2 06/16/22 12:00 38.1 06/16/22 11:00 135 55 126/93 (104) 93 Vapotherm 25.00 35.00 06/16/22 10:54 35 Capillary Refill : Less Than 3 Seconds General Appearance: WD/WN, Mild Distress HEENT: PERRL/EOMI, Moist Mucous Membranes Neck: Full Range of Motion, Non Tender, Supple Respiratory: Chest Non Tender, Lungs Clear, Normal Breath Sounds, Accessory Muscle Use Cardiovascular: Regular Rate, Rhythm, No Edema, No Gallop, No JVD, No Murmur, Normal Peripheral Pulses Gastrointestinal: Normal Bowel Sounds, Non Tender, Soft Extremity: Normal Capillary Refill Neurologic/Psychiatric: Alert, Oriented x3, Normal Mood/Affect Skin: Normal Color, Warm/Dry Results/Procedures Lab Laboratory Tests 06/16/22 04:40 06/16/22 06:52 Patient resulted labs reviewed. Imaging: Reviewed Imaging Report Assessment/Plan Assessment and Plan Assess & Plan/Chief Complaint Presumed pneumonia - fever, leukocytosis Immunosuppression Hypokalemia - improved Juvenile rheumatoid arthritis Current smoker Anxiety GERD S/p b/l hip replacements Hx endocarditis Albuterol nebs vanc and cefepime K replacement Pain control Ordered Echocardiogram Cardiology consult appreciated D/c IV fluids d/t signs of volume overload on CXR Clinical Quality Measures AMI/AHF: ASA po Prior to arrival: ELIZABETH Card DO 06/17/22 0440: Subjective HPI/CC On Admission Date Seen by Provider: Jun 16, 2022 Time Seen by Provider: 09:00 Subjective/Events-last exam Updated mother at bedside Much better clinically Echocardiogram indicated with cardiology consult Objective Exam General Appearance: Anxious Respiratory: Lungs Clear, Accessory Muscle Use, Decreased Breath Sounds Cardiovascular: Regular Rate, Rhythm, Tachycardia Assessment/Plan Assessment and Plan Assess & Plan/Chief Complaint Cardiology consult Echocardiogram Supervisory-Addendum Brief Verification & Attestation Participated in pt care: history, MDM, physical Personally performed: exam, history, MDM, supervision of care Care discussed with: Medical Student Procedures: n/a Results interpretation: Verified all documentation Verification and Attestation of Medical Student E/M Service A medical student performed and documented this service in my presence. I reviewed and verified all information documented by the medical student and made modifications to such information, when appropriate. I personally performed the physical exam and medical decision making. Elizabeth Levi Jun 17, 2022,04:39 CHARLES DOYLE Jun 16, 2022 12:17 ELIZABETH LEVI DO Jun 17, 2022 04:40
[2022-06-16] MEDS: DAPTOmycin INJECTION 500 MG in NS (IVPB) 50 ML IV SCH (14:20)
[2022-06-16] MEDS: CALCIUM CARBONATE 500 MG (TUMS) TAB.CHEW PO PRN (18:46)
--- NOTE | 2022-06-16 19:01 | Consultation-Cardiology ---
HPI-Cardiology Cardiology Consultation: Date of Consultation 06/16/22 Date of Admission 06/14/22 Attending Physician Adriana Benavidez MD Admitting Physician Admitting Physician: Elizabeth Cyr DO Attending Physician: Elizabeth Cyr DO Consulting Physician ADRIANA WOO JR, MD HPI: Time Seen by a Provider: 21:24 Chief Complaint: REASON FOR CONSULTATION: Febrile illness, rule out endocarditis. I had the pleasure of seeing Kwasi in the intensive care unit at [facility] in [place], [place] today. 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 He does not recall any of the details about the pericarditis but does remember he was treated at at that time. He denies any previous history of endocarditis. He was admitted to the hospital due to fever. Because of a concern of possible remote history of endocarditis, a cardiology consultation was requested. When I saw him, he was complaining of heartburn shortly after he drank some Powerade and then laid down in his bed. He denies dyspnea, paroxysmal nocturnal dyspnea, or orthopnea. He has had some lightheaded spells but denies any syncope. He denies any palpitations or lower extremity edema. Certain portions of this document may have been dictated utilizing voice recognition technology. Inherent to this technology, typographical and grammatical errors may exist. As much as I am diligent to identify and correct these mistakes, some errors may remain in the document. Review of Systems-Cardiology Review of Systems Other comments Review of 10 organ systems is as per the history of present illness, otherwise negative. XLE-Ujlmxy-Vremqg Hx Patient Social History Marrital Status: single Employed/Student: unemployed Smoking Status: Current Everyday Smoker 2nd Hand Smoke Exposure: No Have you traveled recently?: No Alcohol Use?: No Pt feels they are or have been: No Tobacco type used: Cigarettes Past Medical History PMH As described under Assessment. Family Medical History Family Medical History: He does not know of any family history of premature coronary artery disease in first-degree relatives. Allergies and Home Medications Allergies Coded Allergies: NKANo Known Allergies (Verified Allergy, Unknown, 01/14/06) Patient Home Medication List Home Medication List Reviewed: Yes Acetaminophen (Tylenol Extra Strength) 500 Mg Tablet, 500-1,000 MG PO Q8H PRN for PAIN-MILD (1-4), (Reported) Entered as Reported by: ANA RAMIREZ on 06/15/221146 Last Action: Held Hydrocodone/Acetaminophen (Hydrocodone-Acetamin 5-325 mg) 5 Mg-325 Mg Tablet, 1 TAB PO BID PRN for PAIN-MODERATE (5-7), (Reported) Entered as Reported by: ANA RAMIREZ on 06/15/221146 Last Action: Held Omeprazole (Omeprazole) 20 Mg Capsule.dr, 20 MG PO DAILY, (Reported) Entered as Reported by: ANA RAMIREZ on 06/15/221146 Last Action: Continued Paroxetine HCl (Paroxetine HCl) 20 Mg Tablet, 20 MG PO DAILY, (Reported) Entered as Reported by: ANA RAMIREZ on 06/15/221146 Last Action: Continued Prednisone (Prednisone) 20 Mg Tab, 40 MG PO BID, (Reported) Entered as Reported by: ANA RAMIREZ on 06/15/221146 Last Action: Held Tofacitinib Citrate (Xeljanz) 5 Mg Tablet, 5 MG PO BID, (Reported) Entered as Reported by: ANA RAMIREZ on 06/15/221146 Last Action: Held Discontinued Medications Cyclobenzaprine HCl (Cyclobenzaprine HCl) 10 Mg Tablet, 10 MG PO Q8H Discontinued Reason: No Longer Taking Prescribed by: MAGDALENA SUN on 07/16/191242 Last Action: Discontinued Methylprednisolone (Medrol Dose Pack) 4 Mg/Dose-Pack Tab.ds.pk, 0 PO UD Discontinued Reason: No Longer Taking Prescribed by: MAGDALENA SUN on 01/22/159 Last Action: Discontinued Prednisone (Prednisone) 20 Mg Tab, 40 MG PO DAILY Discontinued Reason: No Longer Taking Prescribed by: MAGDALENA SUN on 07/16/191242 Last Action: Discontinued Exam Vital Signs Vital Signs Date Time Temp Pulse Resp B/P (MAP) Pulse Ox O2 Delivery O2 Flow Rate FiO2 06/16/22 20:00 36.3 06/16/22 19:35 Vapotherm 35.00 35.00 06/16/22 19:25 91 35 06/16/22 19:00 122 28 108/77 (87) Physical Exam General: Alert. No acute distress. Well nourished and appears stated age. Eye: Extraocular movements are intact. Conjunctivae are clear. There are no xanthelasma. HENT: Normocephalic. Atraumatic. Carotid pulsations 2/2 without bruits. Neck: Jugular venous pressure does not appear elevated. No thyromegaly appreciated. Respiratory: Lungs are clear to auscultation. Respirations are non-labored. Breath sounds are equal. Symmetrical chest wall expansion. Cardiovascular: Normal rate. Regular rhythm. No murmur. No gallop. Point of maximal impulse is not appear displaced. Good pulses equal in all extremities. No edema. Gastrointestinal: Soft. Normal bowel sounds. Skin: Skin turgor is normal. There is no pallor. Musculoskeletal: No kyphosis or scoliosis appreciated. He does have some joint abnormalities due to the arthritis. Neurologic: Alert and oriented to person, place, time. Cranial nerves 3-12 appear grossly intact. The patient has good motor tone strength in the upper and lower extremities bilaterally. Psychiatric: Cooperative. Appropriate mood & affect. Labs Laboratory Tests Test 06/15/22 22:00 06/16/22 02:36 06/16/22 04:40 06/16/22 06:25 Range/Units Vancomycin Level Trough 5.7 L 10.0-20.0 UG/ML Blood Gas Puncture Site RRAD Blood Gas Patient Temperature 38.1 Arterial Blood pH 7.44 H 7.37-7.43 Arterial Blood Partial Pressure CO2 38 35-45 MMHG Arterial Blood Partial Pressure O2 70 L 79-93 MMHG Arterial Blood HCO3 25 23-27 MMOL/L Arterial Blood Total CO2 26.0 21.0-31.0 MMOL/L Arterial Blood Oxygen Saturation 95 94-100 % Arterial Blood Base Excess 1.3 -2.5-2.5 MMOL/L Sixto Test YES-POS Blood Gas Ventilator Setting NO Blood Gas Inspired Oxygen RA White Blood Count 24.4 H 4.3-11.0 10^3/uL Red Blood Count 4.70 4.30-5.52 10^6/uL Hemoglobin 13.1 L 13.3-17.7 g/dL Hematocrit 40 40-54 % Mean Corpuscular Volume 86 80-99 fL Mean Corpuscular Hemoglobin 28 25-34 pg Mean Corpuscular Hemoglobin Concent 32 32-36 g/dL Red Cell Distribution Width 15.2 H 10.0-14.5 % Platelet Count 363 130-400 10^3/uL Mean Platelet Volume 11.2 9.0-12.2 fL Immature Granulocyte % (Auto) 1 % Neutrophils (%) (Auto) 88 H 42-75 % Lymphocytes (%) (Auto) 5 L 12-44 % Monocytes (%) (Auto) 6 0-12 % Eosinophils (%) (Auto) 0 0-10 % Basophils (%) (Auto) 0 0-10 % Neutrophils # (Auto) 21.5 H 1.8-7.8 10^3/uL Lymphocytes # (Auto) 1.2 1.0-4.0 10^3/uL Monocytes # (Auto) 1.4 H 0.0-1.0 10^3/uL Eosinophils # (Auto) 0.1 0.0-0.3 10^3/uL Basophils # (Auto) 0.1 0.0-0.1 10^3/uL Immature Granulocyte # (Auto) 0.2 H 0.0-0.1 10^3/uL Glucometer 145 H 70-110 MG/DL Test 06/16/22 06:52 Range/Units Sodium Level 134 L 135-145 MMOL/L Potassium Level 3.1 L 3.6-5.0 MMOL/L Chloride Level 101 98-107 MMOL/L Carbon Dioxide Level 22 21-32 MMOL/L Anion Gap 11 5-14 MMOL/L Blood Urea Nitrogen 5 L 7-18 MG/DL Creatinine 0.57 L 0.60-1.30 MG/DL Estimat Glomerular Filtration Rate 140 BUN/Creatinine Ratio 9 Glucose Level 137 H 70-105 MG/DL Calcium Level 9.1 8.5-10.1 MG/DL Corrected Calcium 9.6 8.5-10.1 MG/DL Phosphorus Level 1.3 L 2.3-4.7 MG/DL Magnesium Level 1.8 1.6-2.4 MG/DL Total Bilirubin 0.6 0.1-1.0 MG/DL Aspartate Amino Transf (AST/SGOT) 32 5-34 U/L Alanine Aminotransferase (ALT/SGPT) 24 0-55 U/L Alkaline Phosphatase 72 40-136 U/L Total Protein 7.1 6.4-8.2 GM/DL Albumin 3.4 3.2-4.5 GM/DL Radiology ECHOCARDIOGRAM (06/16/2022): 1. This is a technically difficult study due to poor image quality secondary to poor acoustic windows. 2. Left ventricle: The cavity size is normal. There is mild concentric hypertrophy. Systolic function is normal. The estimated ejection fraction is 55- 60%. There were no regional wall motion abnormalities identified. Left ventricular diastolic function parameters are normal. 3. Right ventricle: The cavity size is normal. Systolic function is moderately reduced. TAPSE 1.1 cm. 4. Right atrium: The right atrium is mildly dilated with an area of 21 cm. 5. Pulmonary arteries: The pulmonary artery pressure cannot be estimated on this study due to inadequate tricuspid regurgitant envelope. 6. In the parasternal four-chamber view, in some images there appears to be a mobile echodensity on the tricuspid valve. Consider further evaluation with a transesophageal echocardiogram if clinically indicated. ECG Impression ECG Comment Sinus tachycardia with nonspecific ST-T wave changes in the inferior and anterolateral leads. Diagnosis/Problems Diagnosis/Problems (1) History of pericarditis Assessment & Plan: He tells me he has a remote history of pericarditis and no history of endocarditis. He underwent an echocardiogram earlier today that did not show any evidence of pericardial fluid. There was an abnormality on his tricuspid valve of unclear significance but cannot exclude a vegetation. (2) Fever Status: Acute Assessment & Plan: He has a fever and elevated white blood cell count. 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 He is on broad-spectrum antibiotics. Blood cultures have been negative. As above, there was some suspicious echodensity on the tricuspid valve of unclear significance. We may want to consider further evaluation with a transesophageal echocardiogram. I will review the surface echocardiogram with one of my partners tomorrow and determine whether or not a transesophageal echocardiogram could be helpful. Given that his blood cultures are negative, I suspect the diagnostic yield of a transesophageal echocardiogram could be low. (3) Cigarette smoker Assessment & Plan: He needs to quit smoking. He was counseled in this regard Problem Qualifiers (1) Fever: Fever type: unspecified Qualified Codes: R50.9 - Fever, unspecified ADRIANA WOO JR, MD Jun 16, 2022 19:01
[2022-06-16] MEDS: ANTACID SUSP 30 ML UDC (MYLANTA) PO PRN (19:31)
[2022-06-16] MEDS: ENOXAPARIN 40 MG/0.4 ML (LOVENOX) SYR SC SCH (20:40)
[2022-06-17] MEDS: RT-ALBUTEROL SULF 2.5 MG/3 ML PRE-MIX VIAL INH SCH ×6 (03:07→22:47)
[2022-06-17 05:58] LABS: ABG BASE EXCESS 2.5 MMOL/L (-2.5-2.5); ABG OXYGEN SATURATION 91 % (94-100); ABG PCO2 30 MMHG (35-45); ABG PH 7.53 (7.37-7.43); ABG PO2 53 MMHG (79-93); ABG TCO2 26.1 MMOL/L (21.0-31.0)
[2022-06-17] MEDS: HYDROCORTISONE 100 MG/2 ML (Solu-CORTEF) VIAL IV SCH ×3 (06:05→21:24)
[2022-06-17] MEDS: POTASSIUM CL 10MEQ/50ML IVPB 50 ML IV SCH (06:21)
[2022-06-17] MEDS: KCL 20 MEQ TAB (K-DUR) PO SCH ×4 (06:22→21:25)
[2022-06-17] MEDS: MAGNESIUM 1 GM/100 ML IVPB 100 ML IV SCH (06:22)
[2022-06-17 06:24] LABS: ALLENS TEST YES-POS
[2022-06-17 06:25] LABS: INSPIRED O2 40%; PATIENT TEMP 36.9; VENTILATOR NO
[2022-06-17 07:48] LABS: ALBUMIN 3.5 GM/DL (3.2-4.5); BILIRUBIN,TOTAL 0.6 MG/DL (0.1-1.0); CALCIUM 9.5 MG/DL (8.5-10.1); CREATININE SERUM 0.62 MG/DL (0.60-1.30); MAGNESIUM 2.2 MG/DL (1.6-2.4); PHOSPHORUS 1.5 MG/DL (2.3-4.7); POTASSIUM 3.6 MMOL/L (3.6-5.0); TOTAL PROTEIN 7.7 GM/DL (6.4-8.2)
[2022-06-17 08:15] LABS: BASOPHILS # (AUTO) 0.1 10^3/uL (0.0-0.1); BASOPHILS % (AUTO) 0 % (0-10); EOSINOPHILS % (AUTO) 0 % (0-10); HEMATOCRIT 38 % (40-54); HEMOGLOBIN 12.4 g/dL (13.3-17.7); LYMPHOCYTES # (AUTO) 0.7 10^3/uL (1.0-4.0); LYMPHOCYTES % (AUTO) 3 % (12-44); MEAN CORPUSCULAR HEMOGLOBIN 28 pg (25-34); MEAN CORPUSCULAR HGB CONC 33 g/dL (32-36); MEAN CORPUSCULAR VOLUME 85 fL (80-99); MEAN PLATELET VOLUME 10.6 fL (9.0-12.2); MONOCYTES # (AUTO) 1.2 10^3/uL (0.0-1.0); MONOCYTES % (AUTO) 5 % (0-12); NEUTROPHILS # (AUTO) 19.8 10^3/uL (1.8-7.8); NEUTROPHILS % (AUTO) 90 % (42-75); PLATELET COUNT 355 10^3/uL (130-400); WHITE BLOOD COUNT 22.1 10^3/uL (4.3-11.0)
[2022-06-17] MEDS: DOCUSATE SODIUM 100 MG (COLACE) CAP PO SCH ×2 (08:15→21:34)
[2022-06-17] MEDS: SENNOSIDES 8.6 MG (SENOKOT) TAB PO SCH ×2 (08:15→21:34)
[2022-06-17] MEDS: ACETAMINOPHEN 325 MG TABLET PO PRN ×2 (08:16→16:13)
[2022-06-17] MEDS: CEFEPIME INJECTION 2,000 MG in NS (IVPB) 50 ML IV SCH ×2 (08:16→21:23)
[2022-06-17] MEDS ORDERED: OMEPRAZOLE 20 MG (PriLOSEC) CAP NON-FORMULARY PO SCH (09:00)
--- NOTE | 2022-06-17 09:01 | Diagnostic Imaging Report ---
INDICATION: Dyspnea. Comparison is made with prior examination of 06/16/2022. FINDINGS: There is cardiomegaly. There is some venous congestion. There are patchy bibasilar infiltrates. There appears to be a small right pleural effusion. There is no pneumothorax. IMPRESSION: Bibasilar infiltrates and right pleural effusion Cardiomegaly and some central pulmonary venous congestion. Dictated by: Dictated on workstation # [id number]
[2022-06-17] MEDS ORDERED: ANIDULAFUNGIN INJECTION 200 MG in NS (IVPB) 250 ML IV ONE (10:00)
--- NOTE | 2022-06-17 10:20 | Cardiology Progress Note ---
Progress Note-Cardiology Events since last exam Date Seen by Provider: Jun 17, 2022 Time Seen by Provider: 10:18 Events since last exam I am following him due to fever with question of endocarditis. I spoke with his mother at the bedside today remember seem being at when he was around 4 years old but she cannot remember if he had pericarditis or endocarditis at that time. She does remember being told that he had some fluid around his heart but not enough to remove. This morning he was complaining of a headache. He denies chest discomfort, dyspnea at rest, palpitations, syncope, or ankle edema. He was having some slight chest tightness at the time of admission but this seems to have resolved. Certain portions of this document may have been dictated utilizing voice recognition technology. Inherent to this technology, typographical and grammatical errors may exist. As much as I am diligent to identify and correct these mistakes, some errors may remain in the document. Vitals Last set of Vitals Signs Vital Signs 06/17/22 06/17/22 06/17/22 15:35 16:00 16:13 Temp 38.3 Pulse 130 Resp 59 B/P (MAP) 138/100 (113) Pulse Ox 92 O2 Delivery Vapotherm O2 Flow Rate 35.00 45.00 FiO2 45 Labs Labs Laboratory Tests 06/17/22 07:18 06/17/22 08:00 Exam Vital Signs Vital Signs Date Time Temp Pulse Resp B/P (MAP) Pulse Ox O2 Delivery O2 Flow Rate FiO2 06/17/22 16:13 38.3 06/17/22 16:00 130 59 138/100 (113) 92 Vapotherm 35.00 45.00 06/17/22 15:35 45 Physical Exam General: Alert. No acute distress. Eye: No xanthelasma. HENT: Normocephalic. Neck: Jugular venous pressure does not appear elevated. Respiratory: Lungs are clear to auscultation. Respirations are non-labored. Breath sounds are equal. Symmetrical chest wall expansion. Cardiovascular: Tachycardia. Regular rhythm. No murmur. No gallop. No edema. Gastrointestinal: Soft. Normal bowel sounds. Skin: Warm. Dry. Neurologic: Alert and oriented to person, place, time. Cranial nerves 3-11 grossly intact. Psychiatric: Cooperative. Appropriate mood & affect. Labs Laboratory Tests Test 06/17/22 05:52 06/17/22 07:18 06/17/22 08:00 06/17/22 16:00 Range/Units Blood Gas Puncture Site L RAD Blood Gas Patient Temperature 36.9 Arterial Blood pH 7.53 H 7.37-7.43 Arterial Blood Partial Pressure CO2 30 L 35-45 MMHG Arterial Blood Partial Pressure O2 53 L 79-93 MMHG Arterial Blood HCO3 25 23-27 MMOL/L Arterial Blood Total CO2 26.1 21.0-31.0 MMOL/L Arterial Blood Oxygen Saturation 91 L 94-100 % Arterial Blood Base Excess 2.5 -2.5-2.5 MMOL/L Sixto Test YES-POS Blood Gas Ventilator Setting NO Blood Gas Inspired Oxygen 40% Sodium Level 139 135-145 MMOL/L Potassium Level 3.6 3.6-5.0 MMOL/L Chloride Level 101 98-107 MMOL/L Carbon Dioxide Level 24 21-32 MMOL/L Anion Gap 14 5-14 MMOL/L Blood Urea Nitrogen 8 7-18 MG/DL Creatinine 0.62 0.60-1.30 MG/DL Estimat Glomerular Filtration Rate 137 BUN/Creatinine Ratio 13 Glucose Level 100 70-105 MG/DL Calcium Level 9.5 8.5-10.1 MG/DL Corrected Calcium 9.9 8.5-10.1 MG/DL Phosphorus Level 1.5 L 2.3-4.7 MG/DL Magnesium Level 2.2 1.6-2.4 MG/DL Total Bilirubin 0.6 0.1-1.0 MG/DL Aspartate Amino Transf (AST/SGOT) 23 5-34 U/L Alanine Aminotransferase (ALT/SGPT) 21 0-55 U/L Alkaline Phosphatase 75 40-136 U/L Total Protein 7.7 6.4-8.2 GM/DL Albumin 3.5 3.2-4.5 GM/DL White Blood Count 22.1 H 4.3-11.0 10^3/uL Red Blood Count 4.43 4.30-5.52 10^6/uL Hemoglobin 12.4 L 13.3-17.7 g/dL Hematocrit 38 L 40-54 % Mean Corpuscular Volume 85 80-99 fL Mean Corpuscular Hemoglobin 28 25-34 pg Mean Corpuscular Hemoglobin Concent 33 32-36 g/dL Red Cell Distribution Width 15.3 H 10.0-14.5 % Platelet Count 355 130-400 10^3/uL Mean Platelet Volume 10.6 9.0-12.2 fL Immature Granulocyte % (Auto) 1 % Neutrophils (%) (Auto) 90 H 42-75 % Lymphocytes (%) (Auto) 3 L 12-44 % Monocytes (%) (Auto) 5 0-12 % Eosinophils (%) (Auto) 0 0-10 % Basophils (%) (Auto) 0 0-10 % Neutrophils # (Auto) 19.8 H 1.8-7.8 10^3/uL Lymphocytes # (Auto) 0.7 L 1.0-4.0 10^3/uL Monocytes # (Auto) 1.2 H 0.0-1.0 10^3/uL Eosinophils # (Auto) 0.0 0.0-0.3 10^3/uL Basophils # (Auto) 0.1 0.0-0.1 10^3/uL Immature Granulocyte # (Auto) 0.3 H 0.0-0.1 10^3/uL Glucometer 144 H 70-110 MG/DL Test 06/17/22 16:47 Range/Units Glucometer 144 H 70-110 MG/DL Diagnosis/Problems Diagnosis/Problems (1) History of pericarditis Assessment & Plan: He has a remote history of pericarditis and no history of endocarditis. He underwent an echocardiogram during this admission that did not show any evidence of pericardial fluid. There was an abnormality on his tricuspid valve of unclear significance but cannot exclude a vegetation. However, he underwent a transesophageal echocardiogram that did not show any evidence of valvular vegetations. At this point time, there do not appear to be any acute, active cardiac issues. Cardiology will follow-up as needed. He does not need long-term cardiology follow-up at this point in time. (2) Fever Status: Acute Assessment & Plan: He has a fever and elevated white blood cell count. 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 He is on broad-spectrum antibiotics. Blood cultures have been negative. He is a underwent a transesophageal echocardiogram which did not show any evidence of endocarditis. (3) Cigarette smoker Assessment & Plan: He needs to quit smoking. He was counseled in this regard Problem Qualifiers (1) Fever: Fever type: unspecified Qualified Codes: R50.9 - Fever, unspecified ADRIANA WOO JR, MD Jun 17, 2022 10:19
--- NOTE | 2022-06-17 10:46 | Tele-ICU Progress Note ---
Subjective Date Seen by a Provider: Jun 17, 2022 Time Seen by a Provider: 10:46 Subjective/Events-last exam (Tele-ICU Physician , Progress Note ) Service provided via interactive audio and video telecommunications E-CARE system to a patient admitted to ICU bed in [facility]. Available chart/ vitals / labs / Images reviewed Video assessment done using teleICU camera, rest of exam as per RN Discussed with RN Events overnight : FEBRILE 39 hemodynamically stable Respiratory - VT 35L 45% I/O = POS 1L Drips: Pressors- no Consultants: Hospital course: 06-14: +Sev Sepsis Covid Neg - Inf A&B Neg 22 y/o M - ?Pneumonia - Chest Pain - Body Aches/^T. *(On Prednisone for RA Flare). 06-15: Tx to ICU for ^O2 Requirements & flagging for Sepsis. ECHO EF 55% 06/17- VT 35L 45% Patient is seen today due to persistent hypoxia A/P Acute resp failure with PNA and developing VO - on VT 35L 45% ( from 35% - minimal secretions - IS. wean down O2 if possible - stopped IVF - CONSIDER DIURESIS , ECHO EF 55% Bilateral LL PNA -NEG Covid, flu serology on IV Vanco, Cefepim Immunosuppression with prrdnisone H/o pericarditis - cards consulted -ECHO with suspicious echodensity on the tricuspid valve of unclear significance, cards follow , blood cx negative Juvenile rheumatoid arthritis ( S/p b/l hip replacements = pain control - on chronic steroids - SC 50 q8 h started on 06/16 - to wean down soon Anxiety Lines : perip , (Central Line Necessity Reviewed) Ewing: void OG: Nutrition: po Analgesia: Anxiety/ delirium xanax VTE Prophylaxis: alicia 40 Stress Ulcer Prophylaxis: ppi Plans in collaboration with bedside consultants and IM MDs. Discussed with RN to reach out if any questions or concerns A total of 34 minutes of critical care time was devoted to this patient today, required to treat and/or prevent further deterioration of critical care condit ion ( as above ) . I am remotely monitoring this patient from another state. I am unable to do the bedside exam, and history/physical and pertinent information is taken from other notes in the computer and bedside staff. Sepsis Event Evaluation Height, Weight, BMI Height: 5'5.00" Weight: 120lbs. oz. [id number]; 28.62 BMI Method:Stated Focused Exam Lactate Level 06/14/22 17:34: Lactic Acid Level 1.54 Exam Exam Patient acknowledged, consented, and participated in this virtual visit which was conducted using real time audio/video Vital Signs Date Time Temp Pulse Resp B/P (MAP) Pulse Ox O2 Delivery O2 Flow Rate FiO2 06/17/22 10:21 92 Vapotherm 35.00 45 06/17/22 10:00 123 42 118/70 (86) 93 Vapotherm 35.00 45.00 06/17/22 09:00 133 49 123/84 (97) 91 Vapotherm 35.00 45.00 06/17/22 08:16 39.2 06/17/22 08:00 130 51 125/86 (99) 95 Vapotherm 35.00 45.00 06/17/22 08:00 39.2 06/17/22 07:00 124 53 124/92 (103) 91 Vapotherm 35.00 45.00 06/17/22 07:00 122 06/17/22 06:35 91 Vapotherm 35.00 45 06/17/22 06:07 88 Vapotherm 35.00 45.00 06/17/22 06:00 117 38 115/85 (95) 89 Vapotherm 30.00 40.00 06/17/22 05:00 105 31 114/72 (86) 91 Vapotherm 30.00 40.00 06/17/22 04:00 107 34 104/74 (84) 88 Vapotherm 30.00 40.00 06/17/22 03:50 91 Vapotherm 30.00 40 06/17/22 03:49 36.3 108 27 97/61 (73) 93 Vapotherm 30.00 40.00 06/17/22 03:07 93 Vapotherm 35.00 50 06/17/22 02:00 104 26 105/72 (83) 94 Vapotherm 35.00 50.00 06/17/22 01:00 107 06/17/22 01:00 107 33 113/64 (80) 93 Vapotherm 35.00 50.00 06/17/22 00:00 114 32 120/74 (89) 92 Vapotherm 35.00 50.00 06/16/22 23:40 37.9 06/16/22 23:00 129 49 130/81 (97) 96 Vapotherm 35.00 50.00 06/16/22 23:00 96 Vapotherm 35.00 50 06/16/22 23:00 Vapotherm 35.00 50.00 06/16/22 22:57 38.6 06/16/22 22:55 38.6 Vapotherm 40.00 60.00 06/16/22 22:16 97 Vapotherm 40.00 60 06/16/22 22:05 Vapotherm 40.00 60.00 06/16/22 22:02 Vapotherm 35.00 50.00 06/16/22 22:00 126 46 127/84 (98) 87 Vapotherm 35.00 35.00 06/16/22 21:00 115 33 117/72 (87) 92 Vapotherm 35.00 35.00 06/16/22 20:00 36.3 06/16/22 20:00 120 36 103/70 (81) 91 Vapotherm 35.00 35.00 06/16/22 19:35 Vapotherm 35.00 35.00 06/16/22 19:25 91 Vapotherm 25.00 35 06/16/22 19:02 91 Vapotherm 25.00 35 06/16/22 19:00 122 06/16/22 19:00 37.1 122 28 108/77 (87) 91 Vapotherm 25.00 35.00 06/16/22 18:00 128 35 115/80 (92) 90 Vapotherm 25.00 35.00 06/16/22 17:00 118 50 92/56 (68) 94 Vapotherm 25.00 35.00 06/16/22 16:00 95 Vapotherm 25.00 40 06/16/22 16:00 114 34 108/64 (79) 96 Vapotherm 25.00 35.00 06/16/22 16:00 36.2 06/16/22 15:00 114 32 107/63 (78) 95 Vapotherm 25.00 35.00 06/16/22 14:40 95 Vapotherm 25.00 40 06/16/22 14:00 117 31 111/50 (70) 95 Vapotherm 25.00 35.00 06/16/22 13:00 137 06/16/22 13:00 124 39 114/66 (82) 93 Vapotherm 25.00 35.00 06/16/22 12:20 36.1 06/16/22 12:00 38.1 06/16/22 12:00 135 48 111/61 (78) 93 Vapotherm 25.00 35.00 06/16/22 12:00 90 Vapotherm 25.00 45 06/16/22 11:46 38.0 06/16/22 11:00 135 55 126/93 (104) 93 Vapotherm 25.00 35.00 06/16/22 10:54 96 Vapotherm 25.00 35 I & O 06/17/22 07:00 Intake Total 2902.5 ml Output Total 2375 ml Balance 527.5 ml Height & Weight Height: 5'5.00" Weight: 120lbs. oz. 54.410218ww; 28.62 BMI Method:Stated General Appearance: Anxious HEENT: PERRL/EOMI, Moist Mucous Membranes Neck: Full Range of Motion, Non Tender, Supple Respiratory: Lungs Clear, Accessory Muscle Use, Decreased Breath Sounds Cardiovascular: Regular Rate, Rhythm, Tachycardia Capillary Refill: Less Than 3 Seconds Gastrointestinal: normal bowel sounds, non tender, soft Extremity: Normal Capillary Refill Neurologic/Psychiatric: Alert, Oriented x3, Normal Mood/Affect Skin: Normal Color, Warm/Dry Lymphatic: No Adenopathy Results Lab Laboratory Tests 06/16/22 04:40 06/16/22 06:52 06/17/22 07:18 06/17/22 08:00 Assessment/Plan Assessment/Plan 1 AGUS LONDONO MD Jun 17, 2022 10:46
[2022-06-17] MEDS ORDERED: LIDOCAINE 2% VISCOUS 15 ML UDC PO ONE (11:00)
[2022-06-17] MEDS ORDERED: LIDOCAINE 2% VISCOUS 15 ML UDC ONE (11:01)
--- NOTE | 2022-06-17 11:06 | Cardiac Procedure Note-CS/ASA ---
Pre-Procedure Note Pre-Op Procedure Note Date of Available H&P: Jun 17, 2022 Date H&P Reviewed: Jun 17, 2022 Time H&P Reviewed: 11:06 History & Physical: H&P Reviewed, Patient Examed, No changes noted Pre-Operative Diagnosis: Sepsis Conscious Sedation Pre-Proced Time 11:06 ASA Score 3 For ASA 3 and 4: Consider anesthesia and medical clearance. Also, for patients with a history of failed moderate sedation consider anesthesia. Airway Lungs Heart ASA score ASA 1: a normal healthy patient ASA 2: a patient with a mild systemic disease (mid diabetes, controlled hypertension, obesity ASA 3: a patient with a severe systemic disease that limits activity (angina, COPD, prior Myocardial infarction) ASA 4: a patient with an incapacitating disease that is a constant threat to life (CHF, renal failure) ASA 5: a moribund patient not expected to survive 24 hrs. (ruptured aneurysm) ASA 6: a declared brain- patient whose organs are being harvested. For emergent operations, add the letter E after the classification Mallampati Classification Grade 3 Sedation Plan Analgesia, Amnesia, Plan communicated to team members, Discussed options with patient/fam, Discussed risks with patient/fam The patient is an appropriate candidate to undergo the planned procedure, sedation, and anesthesia. The patient immediately re-assessed prior to indication. NADINE GERBER MD Jun 17, 2022 11:06
[2022-06-17] MEDS ORDERED: NS IV 1000 ML 1,000 ML ONE (11:08)
--- NOTE | 2022-06-17 11:50 | Progress Note - Hospitalist ---
DOYLECHARLES 06/17/22 1150: Subjective HPI/CC On Admission Date Seen by Provider: Jun 17, 2022 Time Seen by Provider: 09:30 Subjective/Events-last exam This is a 22 y WM with PMH of JRA, GERD, anxiety who presented to the ED on 06/14/22 with CP and elevated BP. He had a sore throat and increased joint pain starting 06/11 and was seen by Dr. Okeefe in clinic on 06/12 where he was started on prednisone. He developed substernal CP on 06/13. He described this as a constant sharp pain in the substernal/epigastric region that does not radiate and was an 8/10 in severity. Also having SOB with exertion. The CP and SOB improve with oxygen and worsen with talking or moving. He has also had a fever while in the hospital, Tmax 39.2 C. Denies n/v/d, cough, rhinorrhea. He is a current smoker of less than 1 ppd of cigarettes for the past 10 months. CXR 06/14 showed bibasilar opacities. He is on vancomycin and cefepime. Flu and COVID negative on 06/14. ESR, CRP and WBC count elevated. Troponin negative 06/14. EKG 06/15 with sinus tachycardia and moderate T-wave abnormalities. His mother is at bedside and contributes to history. Notes he is having a RA flare of the left knee with pain and swelling. Pt was moved to the ICU on 06/15 due to increased oxygen requirements and sepsis concerns. He was started on Vapotherm. He still had substernal pain with coughing or deep breathing. CXR on 06/16 r evealed development of atelectasis and eveloping diffuse groundglass infiltrates. Given signs of volume overload his IV fluids were discontinued. Mother mentioned on 06/16 that patient had a history of pericarditis or endocarditis. Cardiology was consulted. Echocardiogram was performed and revealed EF of 55%, no signs of pericarditis. There was an abnormality of the tricuspid valve so a KELTON will be obtained for further evaluation. Eraxis started given potential for fungal source as pt is immunosuppressed. Dr. Cyr spent a significant amount of time discussing the patient with his mother. Review of Systems General: Other (dry mouth) HEENT: No Head Aches, No Dysphasia Pulmonary: Dyspnea (on exertion) Cardiovascular: No: Chest Pain, Palpitations Gastrointestinal: No: Nausea, Vomiting Genitourinary: No Dysuria, No Frequency Musculoskeletal: leg pain Focused Exam Lactate Level 06/14/22 17:34: Lactic Acid Level 1.54 Objective Exam Vital Signs Vital Signs Date Time Temp Pulse Resp B/P (MAP) Pulse Ox O2 Delivery O2 Flow Rate FiO2 06/17/22 11:00 118 36 117/76 (90) 92 Vapotherm 35.00 45.00 06/17/22 10:21 45 06/17/22 08:16 39.2 Capillary Refill : Less Than 3 Seconds General Appearance: No Apparent Distress, Anxious HEENT: PERRL/EOMI, Other (dry mucous membranes) Neck: Full Range of Motion, Non Tender Respiratory: Chest Non Tender, Lungs Clear, Normal Breath Sounds, No Accessory Muscle Use, No Respiratory Distress Cardiovascular: Regular Rate, Rhythm, No Gallop, No JVD, No Murmur, Normal Peripheral Pulses Gastrointestinal: Non Tender, Soft Extremity: Normal Capillary Refill Neurologic/Psychiatric: Alert, Oriented x3, Normal Mood/Affect Skin: Normal Color, Warm/Dry Results/Procedures Lab Laboratory Tests 06/17/22 07:18 06/17/22 08:00 Patient resulted labs reviewed. Imaging: Reviewed Imaging Report Assessment/Plan Assessment and Plan Assess & Plan/Chief Complaint Bilateral lower lobe pneumonia - fever, leukocytosis Immunosuppression Hypokalemia - improved Juvenile rheumatoid arthritis Current smoker Anxiety GERD S/p b/l hip replacements Hx pericarditis - echo without evidence of acute pericarditis Tricuspid abnormality Albuterol nebs prn Vanc and cefepime Eraxis to cover potential fungal source K replacement Pain control KELTON to be completed today Cardiology appreciated Clinical Quality Measures AMI/AHF: ASA po Prior to arrival: No ELIZABETH CYR DO 06/18/22 0449: Subjective Subjective/Events-last exam Patient requiring more oxygen Vapotherm at 35/40 Mother wants him transferred but due to all hospitals on diversion will continue to be supportive care and if he requires intubation we will move him even if its [address] Objective Exam General Appearance: Anxious, Chronically ill Respiratory: Accessory Muscle Use, Decreased Breath Sounds Neurologic/Psychiatric: Alert, Oriented x3 Assessment/Plan Assessment and Plan Assess & Plan/Chief Complaint Add Eraxis in case this is a fungal pneumonia Appreciate cardiology Diuresis per eICU recommendations Supervisory-Addendum Brief Verification & Attestation Participated in pt care: history, MDM, physical Personally performed: exam, history, MDM, supervision of care Care discussed with: Medical Student Procedures: n/a Results interpretation: Verified all documentation Verification and Attestation of Medical Student E/M Service A medical student performed and documented this service in my presence. I reviewed and verified all information documented by the medical student and made modifications to such information, when appropriate. I personally performed the physical exam and medical decision making. Elizabeth Cyr, Jun 18, 2022,04:47 CHARLES DOYLE Jun 17, 2022 11:50 ELIZABETH CYR DO Jun 18, 2022 04:49
[2022-06-17] MEDS: PARoxetine 20 MG (PAXIL) TAB PO SCH (12:17)
[2022-06-17] MEDS: PANTOPRAZOLE 40 MG (PROTONIX) TAB PO SCH (12:17)
[2022-06-17] MEDS: DAPTOmycin INJECTION 500 MG in NS (IVPB) 50 ML IV SCH (12:36)
--- NOTE | 2022-06-17 13:30 | Anesthesia-General Post-Op ---
MAC Patient Condition Mental Status/LOC: Same as Preop Cardiovascular: Satisfactory Nausea/Vomiting: Absent Respiratory: Satisfactory Pain: Controlled Complications: Absent Post Op Complications Complications None Follow Up Care/Instructions Patient Instructions None needed. Anesthesiology Discharge Order Discharge Order Patient is doing well, no complaints, stable vital signs, no apparent adverse anesthesia problems. No complications reported per nursing. TEA CODY CRNA Jun 17, 2022 13:30
[2022-06-17] MEDS ORDERED: KETAMINE HCL 100 MG/ML 5 ML VIAL IJ ONE (14:28)
[2022-06-17] MEDS: ALPRAZolam 0.5 MG (XANAX) TAB PO PRN (16:13)
[2022-06-17] MEDS: inSUlin ASPART (NovoLOG) 1 UNIT/0.01 ML (CHARGE PER UNIT) SC SCH ×2 (16:20→21:27)
[2022-06-17] MEDS ORDERED: FUROSEMIDE 40 MG/4 ML INJ (LASIX) IVP NR (17:00)
[2022-06-17] MEDS: ENOXAPARIN 40 MG/0.4 ML (LOVENOX) SYR SC SCH (21:26)
[2022-06-18 04:26] LABS: BASOPHILS # (AUTO) 0.1 10^3/uL (0.0-0.1); BASOPHILS % (AUTO) 0 % (0-10); EOSINOPHILS % (AUTO) 0 % (0-10); HEMATOCRIT 34 % (40-54); HEMOGLOBIN 11.3 g/dL (13.3-17.7); LYMPHOCYTES % (AUTO) 3 % (12-44); MEAN CORPUSCULAR HEMOGLOBIN 28 pg (25-34); MEAN CORPUSCULAR HGB CONC 34 g/dL (32-36); MEAN CORPUSCULAR VOLUME 83 fL (80-99); MEAN PLATELET VOLUME 10.8 fL (9.0-12.2); MONOCYTES # (AUTO) 1.8 10^3/uL (0.0-1.0); MONOCYTES % (AUTO) 6 % (0-12); NEUTROPHILS # (AUTO) 26.5 10^3/uL (1.8-7.8); NEUTROPHILS % (AUTO) 89 % (42-75); PLATELET COUNT 317 10^3/uL (130-400)
[2022-06-18 04:38] LABS: ALBUMIN 3.1 GM/DL (3.2-4.5); POTASSIUM 3.3 MMOL/L (3.6-5.0)
[2022-06-18 04:39] LABS: CALCIUM 8.5 MG/DL (8.5-10.1)
[2022-06-18 04:41] LABS: TOTAL PROTEIN 6.7 GM/DL (6.4-8.2)
[2022-06-18 04:42] LABS: BILIRUBIN,TOTAL 0.5 MG/DL (0.1-1.0)
[2022-06-18 04:44] LABS: CREATININE SERUM 0.61 MG/DL (0.60-1.30); PHOSPHORUS 2.5 MG/DL (2.3-4.7)
[2022-06-18 04:47] LABS: MAGNESIUM 1.9 MG/DL (1.6-2.4)
[2022-06-18 05:38] LABS: ABG BASE EXCESS 5.2 MMOL/L (-2.5-2.5); ABG OXYGEN SATURATION 89 % (94-100); ABG PCO2 45 MMHG (35-45); ABG PH 7.43 (7.37-7.43); ABG PO2 56 MMHG (79-93); ABG TCO2 30.9 MMOL/L (21.0-31.0); ALLENS TEST YES-POS; PATIENT TEMP 36.8; VENTILATOR NO
[2022-06-18] MEDS: inSUlin ASPART (NovoLOG) 1 UNIT/0.01 ML (CHARGE PER UNIT) SC SCH ×4 (06:27→21:28)
[2022-06-18] MEDS: HYDROCORTISONE 100 MG/2 ML (Solu-CORTEF) VIAL IV SCH ×2 (06:27→21:26)
[2022-06-18] MEDS: POTASSIUM CL 10MEQ/50ML IVPB 50 ML IV SCH (06:31)
[2022-06-18] MEDS: MAGNESIUM 1 GM/100 ML IVPB 100 ML IV SCH (06:32)
[2022-06-18] MEDS: KCL 20 MEQ TAB (K-DUR) PO SCH ×4 (06:32→21:27)
[2022-06-18] MEDS: RT-ALBUTEROL SULF 2.5 MG/3 ML PRE-MIX VIAL INH SCH ×4 (07:17→23:08)
[2022-06-18] MEDS ORDERED: KCL 20 MEQ TAB (K-DUR) PO ONE ×2 (08:00→10:00)
[2022-06-18] MEDS: DOCUSATE SODIUM 100 MG (COLACE) CAP PO SCH ×2 (08:28→21:27)
[2022-06-18] MEDS: SENNOSIDES 8.6 MG (SENOKOT) TAB PO SCH ×2 (08:29→21:28)
[2022-06-18] MEDS: PANTOPRAZOLE 40 MG (PROTONIX) TAB PO SCH (08:31)
[2022-06-18] MEDS: CEFEPIME INJECTION 2,000 MG in NS (IVPB) 50 ML IV SCH ×2 (08:31→21:25)
[2022-06-18] MEDS: PARoxetine 20 MG (PAXIL) TAB PO SCH (08:31)
--- NOTE | 2022-06-18 08:46 | Diagnostic Imaging Report ---
INDICATION: Dyspnea. TIME OF EXAM: 5:45 AM Correlation is made with prior chest from one day earlier. FINDINGS: Heart is enlarged. Bilateral infiltrates persist. There may be some small amount of pleural fluid on the right. Right hemidiaphragm is mildly elevated. There is central congestion. No pneumothorax is seen. IMPRESSION: Stable bilateral infiltrates and right-sided effusion when compared with exam one day earlier. Dictated by: Dictated on workstation # [id number]
--- NOTE | 2022-06-18 09:08 | Tele-ICU Progress Note ---
Subjective Date Seen by a Provider: Jun 18, 2022 Time Seen by a Provider: 09:08 Subjective/Events-last exam (Tele-ICU Physician , Progress Note ) Service provided via interactive audio and video telecommunications E-CARE system to a patient admitted to ICU bed in [facility]. Available chart/ vitals / labs / Images reviewed Video assessment done using teleICU camera, rest of exam as per RN Discussed with RN Events overnight : doiarrhea AFEBRILE hemodynamically stable Respiratory - VT 35L 45% I/O = neg 1L Drips: none Pressors- no Consultants: Hospital course: 06-14: +Sev Sepsis Covid Neg - Inf A&B Neg 22 y/o M - ?Pneumonia - Chest Pain - Body Aches/^T. *(On Prednisone for RA Flare). 06-15: Tx to ICU for ^O2 Requirements & flagging for Sepsis. ECHO EF 55% 06/17- VT 35L 45% 06/17 - KELTON - no veg Patient is seen today due to persistent hypoxia A/P Acute resp failure with PNA and developing VO - on VT 35L 50% - minimal secretions - IS. wean down O2 if possible - stopped IVF - responded to DIURESIS , ECHO EF 55% - repeat lasix today x1 Bilateral LL PNA -NEG Covid, flu serology on IVeraxis, Cefepim dapto Immunosuppression with prrdnisone H/o pericarditis - cards consulted -ECHO with suspicious echodensity on the tricuspid valve of unclear signifi cance, cards follow , blood cx negative 06/17 - KELTON - no veg Juvenile rheumatoid arthritis ( S/p b/l hip replacements = pain control - on chronic steroids - SC 50 q8 h started on 06/16 - to decrease dose today - ? po tomorrow Anxiety Lines : perip , (Central Line Necessity Reviewed) Ewing: void OG: Nutrition: po Analgesia: Anxiety/ delirium xanax VTE Prophylaxis: alicia 40 Stress Ulcer Prophylaxis: ppi Plans in collaboration with bedside consultants and IM MDs. Discussed with RN to reach out if any questions or concerns A total of 31 minutes of critical care time was devoted to this patient today, required to treat and/or prevent further deterioration of critical care con dition ( as above ) . I am remotely monitoring this patient from another state. I am unable to do the bedside exam, and history/physical and pertinent information is taken from other notes in the computer and bedside staff. Sepsis Event Evaluation Height, Weight, BMI Height: 5'5.00" Weight: 120lbs. oz. 54.860994nq; 27.59 BMI Method:Stated Exam Exam Patient acknowledged, consented, and participated in this virtual visit which was conducted using real time audio/video Vital Signs Date Time Temp Pulse Resp B/P (MAP) Pulse Ox O2 Delivery O2 Flow Rate FiO2 06/18/22 08:00 87 28 113/70 (84) 96 Vapotherm 35.00 50.00 06/18/22 07:25 Vapotherm 35.00 50.00 06/18/22 07:24 86 06/18/22 07:00 85 29 115/76 (89) 95 Vapotherm 35.00 55.00 06/18/22 06:00 90 30 104/64 (77) 96 Vapotherm 35.00 55.00 06/18/22 05:02 87 30 112/63 (79) 94 35.00 55.00 06/18/22 05:00 87 28 112/63 (79) 95 Vapotherm 35.00 55.00 06/18/22 04:00 Vapotherm 35.00 55 06/18/22 04:00 95 32 114/68 (83) 94 35.00 55.00 06/18/22 03:00 99 30 103/67 (79) 93 35.00 55.00 06/18/22 02:00 108 32 94/45 (61) 93 35.00 55.00 06/18/22 01:07 112 34 97/56 (70) 92 Vapotherm 35.00 55.00 06/18/22 01:07 112 06/18/22 01:00 115 06/18/22 00:10 Vapotherm 35.00 55 06/18/22 00:00 118 34 106/67 (80) 92 35.00 55.00 06/17/22 23:06 128 34 93/57 (69) 93 35.00 55.00 06/17/22 23:00 126 30 93/57 (69) 93 Vapotherm 30.00 45.00 06/17/22 22:47 90 Vapotherm 35.00 55 06/17/22 22:38 36.4 06/17/22 22:00 130 48 107/58 (74) 90 30.00 45.00 06/17/22 21:18 36.4 06/17/22 21:00 144 50 128/58 (81) 87 30.00 45.00 06/17/22 20:47 36.4 06/17/22 20:00 140 48 127/68 (87) 92 30.00 45.00 06/17/22 19:40 135 06/17/22 19:40 92 Vapotherm 30.00 45 06/17/22 19:02 93 Vapotherm 35.00 45 06/17/22 19:00 130 06/17/22 19:00 131 44 145/96 (112) 30.00 45.00 06/17/22 18:00 131 42 129/92 (104) 99 Vapotherm 35.00 45.00 06/17/22 17:14 37.6 06/17/22 17:00 129 47 162/105 (124) 93 Vapotherm 35.00 45.00 06/17/22 16:45 38.0 06/17/22 16:13 38.3 06/17/22 16:00 95 Vapotherm 30.00 45 06/17/22 16:00 130 59 138/100 (113) 92 Vapotherm 35.00 45.00 06/17/22 15:35 94 Vapotherm 35.00 45 06/17/22 15:30 124 57 136/94 (108) 94 Vapotherm 35.00 45.00 06/17/22 15:00 124 42 136/99 (111) 95 Vapotherm 35.00 45.00 06/17/22 14:30 125 49 127/95 (106) 95 Vapotherm 35.00 45.00 06/17/22 14:00 125 43 131/95 (107) 96 Vapotherm 35.00 45.00 06/17/22 13:30 120 36 124/92 (103) 96 Vapotherm 35.00 45.00 06/17/22 13:00 128 06/17/22 13:00 121 38 121/95 (104) 95 Vapotherm 35.00 45.00 06/17/22 12:45 115 33 122/85 (97) 88 Vapotherm 35.00 45.00 06/17/22 12:30 116 31 116/96 (103) 92 Vapotherm 35.00 45.00 06/17/22 12:00 90 Vapotherm 30.00 55 06/17/22 12:00 36.3 06/17/22 12:00 131 54 99 Vapotherm 35.00 45.00 06/17/22 11:45 116 32 114/65 (81) 93 Vapotherm 35.00 55.00 06/17/22 11:40 114 42 115/73 (87) 93 Vapotherm 35.00 55.00 06/17/22 11:35 113 33 119/80 (93) 92 Vapotherm 35.00 55.00 06/17/22 11:30 116 39 117/76 (90) 91 Vapotherm 35.00 55.00 06/17/22 11:25 123 51 124/82 (96) 82 Vapotherm 35.00 55.00 06/17/22 11:20 123 56 117/85 (96) 85 Vapotherm 35.00 45.00 06/17/22 11:15 121 36 116/90 (99) 91 Vapotherm 35.00 45.00 06/17/22 11:00 118 36 117/76 (90) 92 Vapotherm 35.00 45.00 06/17/22 10:21 92 Vapotherm 35.00 45 06/17/22 10:00 123 42 118/70 (86) 93 Vapotherm 35.00 45.00 I & O 06/18/22 07:00 Intake Total 2220 ml Output Total 2500 ml Balance -280 ml Height & Weight Height: 5'5.00" Weight: 120lbs. oz. 54.630004ah; 27.59 BMI Method:Stated General Appearance: Anxious, Chronically ill HEENT: PERRL/EOMI, Moist Mucous Membranes Neck: Full Range of Motion, Non Tender, Supple Respiratory: Accessory Muscle Use, Decreased Breath Sounds Cardiovascular: Regular Rate, Rhythm, Tachycardia Capillary Refill: Less Than 3 Seconds Gastrointestinal: normal bowel sounds, non tender, soft Extremity: Normal Capillary Refill Neurologic/Psychiatric: Alert, Oriented x3 Skin: Normal Color, Warm/Dry Lymphatic: No Adenopathy Results Lab Laboratory Tests 06/17/22 07:18 06/17/22 08:00 06/18/22 04:07 Assessment/Plan Assessment/Plan 1 AGUS LONDONO MD Jun 18, 2022 09:08
[2022-06-18] MEDS ORDERED: FUROSEMIDE 40 MG/4 ML INJ (LASIX) IVP NR (09:30)
[2022-06-18] MEDS: ANIDULAFUNGIN INJECTION 100 MG in NS (IVPB) 100 ML IV SCH (09:52)
[2022-06-18] MEDS: DAPTOmycin INJECTION 500 MG in NS (IVPB) 50 ML IV SCH (11:21)
--- NOTE | 2022-06-18 13:20 | Progress Note - Hospitalist ---
VIVEKCHARLES 06/18/22 1320: Subjective HPI/CC On Admission Date Seen by Provider: Jun 18, 2022 Time Seen by Provider: 10:05 This is a 22 y WM with PMH of JRA, GERD, anxiety who presented to the ED on 06/14/22 with CP and elevated BP found to have pneumonia. Subjective/Events-last exam CXR today with stable bilateral infiltrates and right-sided effusion. KELTON on 06/17 with EF 60%, flail chordae on ventricular side of MV, trace mitral regurgitation, no vegetations. Today he presents sitting up on side of bed and notes feeling much better. He has had a BM and is urinating without issue. He is having minimal substernal pain with very deep breathing, no SOB. His left knee, with RA flare, is feeling better today. Review of Systems General: No Fatigue; Appetite Pulmonary: No Dyspnea, No Cough Cardiovascular: No: Chest Pain Gastrointestinal: No: Nausea, Vomiting, Abdominal Pain Genitourinary: No Dysuria, No Frequency Objective Exam Vital Signs Vital Signs Date Time Temp Pulse Resp B/P (MAP) Pulse Ox O2 Delivery O2 Flow Rate FiO2 06/18/22 12:23 98 06/18/22 12:00 34 113/78 (90) 95 Vapotherm 30.00 45.00 06/18/22 11:37 45 06/17/22 22:38 36.4 Capillary Refill : Less Than 3 Seconds General Appearance: No Apparent Distress, WD/WN HEENT: PERRL/EOMI, Moist Mucous Membranes Neck: Full Range of Motion Respiratory: Chest Non Tender, Lungs Clear, Normal Breath Sounds, No Accessory Muscle Use, No Respiratory Distress Cardiovascular: Regular Rate, Rhythm, No Edema, No Gallop, No JVD, No Murmur, Normal Peripheral Pulses Gastrointestinal: Normal Bowel Sounds, Non Tender, Soft Extremity: Normal Capillary Refill, No Pedal Edema Neurologic/Psychiatric: Alert, Oriented x3, No Motor/Sensory Deficits, Normal Mood/Affect Skin: Normal Color, Warm/Dry Results/Procedures Lab Laboratory Tests 06/18/22 04:07 Patient resulted labs reviewed. Imaging: Reviewed Imaging Report Assessment/Plan Assessment and Plan Assess & Plan/Chief Complaint Bilateral lower lobe pneumonia - fever, leukocytosis Immunosuppression Hypokalemia Juvenile rheumatoid arthritis Current smoker Anxiety GERD S/p b/l hip replacements Hx pericarditis - echo without evidence of acute pericarditis Tricuspid abnormality- no evidence on KELTON Tachycardia Albuterol nebs prn Cefepime Eraxis to cover potential fungal source Stop Daptomycin as no staph infection K replacement Pain control Cardiology appreciated Start PT Lasix per eICU Clinical Quality Measures AMI/AHF: ASA po Prior to arrival: No ELIZABETH LEVI DO 06/19/22 0458: Subjective Subjective/Events-last exam Much improved status No fever Stop daptomycin no longer needing staph coverage Updated mother at bedside Maintained on Vapotherm hopefully will wean soon Review of Systems General: Fatigue, Malaise Objective Exam General Appearance: WD/WN, Anxious, Chronically ill Respiratory: Decreased Breath Sounds Cardiovascular: Tachycardia Gastrointestinal: Normal Bowel Sounds Assessment/Plan Assessment and Plan Assess & Plan/Chief Complaint Continue supportive care Wean Vapotherm Start PT Supervisory-Addendum Brief Verification & Attestation Participated in pt care: history, MDM, physical Personally performed: exam, history, MDM, supervision of care Care discussed with: Medical Student Procedures: n/a Results interpretation: Verified all documentation Verification and Attestation of Medical Student E/M Service A medical student performed and documented this service in my presence. I reviewed and verified all information documented by the medical student and made modifications to such information, when appropriate. I personally performed the physical exam and medical decision making. Elizabeth Levi, Jun 19, 2022,04:57 CHARLES DOYLE Jun 18, 2022 13:20 ELIZABETH LEVI DO Jun 19, 2022 04:58
[2022-06-18] MEDS: HYDROmorphone 2 MG/ML VIAL (DILAUDID) IV PRN (15:05)
[2022-06-18] MEDS: ACETAMINOPHEN 325 MG TABLET PO PRN (15:27)
[2022-06-18] MEDS: ENOXAPARIN 40 MG/0.4 ML (LOVENOX) SYR SC SCH (21:26)
[2022-06-19] MEDS: ANTACID SUSP 30 ML UDC (MYLANTA) PO PRN (00:25)
[2022-06-19] MEDS: RT-ALBUTEROL SULF 2.5 MG/3 ML PRE-MIX VIAL INH SCH ×3 (02:28→11:51)
[2022-06-19 04:19] LABS: ABG BASE EXCESS 3.2 MMOL/L (-2.5-2.5); ABG OXYGEN SATURATION 98 % (94-100); ABG PCO2 42 MMHG (35-45); ABG PH 7.42 (7.37-7.43); ABG PO2 84 MMHG (79-93); ABG TCO2 28.8 MMOL/L (21.0-31.0)
[2022-06-19 04:21] LABS: ALLENS TEST YES-POS
[2022-06-19 04:22] LABS: VENTILATOR NO
[2022-06-19 04:44] LABS: BASOPHILS # (AUTO) 0.1 10^3/uL (0.0-0.1); BASOPHILS % (AUTO) 0 % (0-10); EOSINOPHILS % (AUTO) 0 % (0-10); HEMATOCRIT 36 % (40-54); LYMPHOCYTES # (AUTO) 0.7 10^3/uL (1.0-4.0); LYMPHOCYTES % (AUTO) 3 % (12-44); MEAN CORPUSCULAR HEMOGLOBIN 28 pg (25-34); MEAN CORPUSCULAR HGB CONC 33 g/dL (32-36); MEAN CORPUSCULAR VOLUME 84 fL (80-99); MEAN PLATELET VOLUME 10.9 fL (9.0-12.2); MONOCYTES # (AUTO) 1.1 10^3/uL (0.0-1.0); MONOCYTES % (AUTO) 4 % (0-12); NEUTROPHILS # (AUTO) 24.5 10^3/uL (1.8-7.8); NEUTROPHILS % (AUTO) 90 % (42-75); PLATELET COUNT 297 10^3/uL (130-400); WHITE BLOOD COUNT 27.2 10^3/uL (4.3-11.0)
[2022-06-19 05:17] LABS: ALBUMIN 3.2 GM/DL (3.2-4.5); BILIRUBIN,TOTAL 0.4 MG/DL (0.1-1.0); CALCIUM 8.7 MG/DL (8.5-10.1); CREATININE SERUM 0.61 MG/DL (0.60-1.30); MAGNESIUM 2.1 MG/DL (1.6-2.4); PHOSPHORUS 2.6 MG/DL (2.3-4.7); POTASSIUM 3.7 MMOL/L (3.6-5.0)
[2022-06-19] MEDS: KCL 20 MEQ TAB (K-DUR) PO SCH ×2 (06:27→08:39)
[2022-06-19] MEDS: MAGNESIUM 1 GM/100 ML IVPB 100 ML IV SCH (06:27)
[2022-06-19] MEDS: POTASSIUM CL 10MEQ/50ML IVPB 50 ML IV SCH (06:28)
[2022-06-19] MEDS: inSUlin ASPART (NovoLOG) 1 UNIT/0.01 ML (CHARGE PER UNIT) SC SCH ×2 (06:28→10:59)
[2022-06-19] MEDS: SENNOSIDES 8.6 MG (SENOKOT) TAB PO SCH (08:14)
[2022-06-19] MEDS: DOCUSATE SODIUM 100 MG (COLACE) CAP PO SCH (08:14)
[2022-06-19] MEDS: PARoxetine 20 MG (PAXIL) TAB PO SCH (08:39)
[2022-06-19] MEDS: PANTOPRAZOLE 40 MG (PROTONIX) TAB PO SCH (08:39)
[2022-06-19] MEDS: HYDROCORTISONE 100 MG/2 ML (Solu-CORTEF) VIAL IV SCH (08:40)
[2022-06-19] MEDS: CEFEPIME INJECTION 2,000 MG in NS (IVPB) 50 ML IV SCH (08:40)
[2022-06-19] MEDS ORDERED: FUROSEMIDE 40 MG/4 ML INJ (LASIX) IVP ONE (09:15)
[2022-06-19] MEDS: ANIDULAFUNGIN INJECTION 100 MG in NS (IVPB) 100 ML IV SCH (09:19)
--- NOTE | 2022-06-19 09:22 | Tele-ICU Progress Note ---
Subjective Date Seen by a Provider: Jun 19, 2022 Time Seen by a Provider: 09:20 Subjective/Events-last exam (Tele-ICU Physician , Progress Note ) Service provided via interactive audio and video telecommunications E-CARE system to a patient admitted to ICU bed in [facility]. Available chart/ vitals / labs / Images reviewed Video assessment done using teleICU camera, rest of exam as per RN Discussed with RN Events overnight : doiarrhea AFEBRILE hemodynamically stable Respiratory - VT 30L 45% - littel juan r I/O = neg 1L Drips: none Pressors- no Consultants: Hospital course: 06-14: +Sev Sepsis Covid Neg - Inf A&B Neg 22 y/o M - ?Pneumonia - Chest Pain - Body Aches/^T. *(On Prednisone for RA Flare). 06-15: Tx to ICU for ^O2 Requirements & flagging for Sepsis. ECHO EF 55% 06/17- VT 35L 45% 06/17 - KELTON - no veg Patient is seen today due to persistent hypoxia A/P Acute resp failure with PNA and possible VO - on VT 35L 50% - minimal secretions - IS. wean down O2 if possible - stopped IVF - responded to DIURESIS , ECHO EF 55% - repeat lasix today x1 again Bilateral LL PNA -NEG Covid, flu serology on IVeraxis, Cefepim dapto Immunosuppression with prrdnisone H/o pericarditis - cards consulted -ECHO with suspicious echodensity on the tricuspid valve of unclear significance, cards follow , blood cx negative 06/17 - KELTON - no veg Juvenile rheumatoid arthritis ( S/p b/l hip replacements = pain control - on chronic steroids - SC 50 q8 h started on 06/16 - keep same dose today Anxiety Lines : perip , (Central Line Necessity Reviewed) Ewing: void OG: Nutrition: po Analgesia: Anxiety/ delirium xanax VTE Prophylaxis: alicia 40 Stress Ulcer Prophylaxis: ppi Plans in collaboration with bedside consultants and IM MDs. Discussed with RN to reach out if any questions or concerns A total of 31 minutes of critical care time was devoted to this patient today, required to treat and/or prevent further deterioration of critical care c ondition ( as above ) . I am remotely monitoring this patient from another state. I am unable to do the bedside exam, and history/physical and pertinent information is taken from other notes in the computer and bedside staff. Sepsis Event Evaluation Height, Weight, BMI Height: 5'5.00" Weight: 120lbs. oz. 54.926764ni; 27.59 BMI Method:Stated Exam Exam Patient acknowledged, consented, and participated in this virtual visit which was conducted using real time audio/video Vital Signs Date Time Temp Pulse Resp B/P (MAP) Pulse Ox O2 Delivery O2 Flow Rate FiO2 06/19/22 08:00 104 18 117/82 (94) 97 Vapotherm 30.00 45.00 06/19/22 07:43 96 Vapotherm 30.00 45 06/19/22 07:30 36.3 06/19/22 07:00 71 30 107/73 (84) 96 Vapotherm 30.00 45.00 06/19/22 07:00 87 06/19/22 06:00 76 18 99/76 (84) 97 Vapotherm 30.00 45.00 06/19/22 05:00 87 24 100/57 (71) 97 Vapotherm 30.00 45.00 06/19/22 04:00 36.0 89 22 118/79 (92) 97 Vapotherm 30.00 45.00 06/19/22 03:00 90 24 111/62 (78) 95 Vapotherm 30.00 45.00 06/19/22 02:28 94 Vapotherm 30.00 45 06/19/22 02:00 90 32 108/67 (81) 94 Vapotherm 30.00 45.00 06/19/22 01:05 99 06/19/22 01:00 99 28 114/69 (84) 94 Vapotherm 30.00 45.00 06/19/22 01:00 100 06/19/22 00:45 36.7 06/19/22 00:00 94 Vapotherm 30.00 45 06/19/22 00:00 112 32 118/78 (91) 94 Vapotherm 30.00 45.00 06/18/22 23:08 93 Vapotherm 30.00 45 06/18/22 23:00 112 38 111/75 (87) 92 Vapotherm 30.00 45.00 06/18/22 22:00 129 34 107/73 (84) 94 Vapotherm 30.00 45.00 06/18/22 21:00 113 34 112/70 (84) 94 Vapotherm 30.00 45.00 06/18/22 20:20 94 Vapotherm 30.00 45 06/18/22 20:00 37.6 06/18/22 20:00 122 28 124/78 (93) 95 Vapotherm 30.00 45.00 06/18/22 19:09 92 Vapotherm 30.00 45 06/18/22 19:00 124 34 100/65 (77) 94 Vapotherm 30.00 45.00 06/18/22 19:00 124 06/18/22 18:46 38.4 06/18/22 18:00 129 38 122/84 (97) 95 Vapotherm 30.00 45.00 06/18/22 17:01 40.1 06/18/22 17:00 129 34 124/95 (105) 95 Vapotherm 30.00 45.00 06/18/22 16:48 40.1 06/18/22 16:33 40.6 06/18/22 16:09 40.1 06/18/22 16:01 41.1 06/18/22 16:01 41.1 06/18/22 16:00 125 32 131/99 (110) 95 Vapotherm 30.00 45.00 06/18/22 16:00 39.9 06/18/22 15:29 94 Vapotherm 30.00 45 06/18/22 15:27 39.9 06/18/22 15:00 125 47 143/108 (120) 93 Vapotherm 30.00 45.00 06/18/22 14:00 112 43 117/89 (98) 95 Vapotherm 30.00 45.00 06/18/22 13:00 102 32 114/78 (90) 97 Vapotherm 30.00 45.00 06/18/22 12:23 98 06/18/22 12:00 106 34 113/78 (90) 95 Vapotherm 30.00 45.00 06/18/22 12:00 36.2 06/18/22 11:37 96 Vapotherm 30.00 45 06/18/22 11:00 106 31 116/82 (93) 95 Vapotherm 30.00 45.00 06/18/22 10:15 Vapotherm 30.00 45.00 06/18/22 10:04 97 Vapotherm 30.00 45 06/18/22 10:00 108 32 114/81 (92) 98 Vapotherm 35.00 50.00 I & O 06/19/22 07:00 Intake Total 2230 ml Output Total 2000 ml Balance 230 ml Height & Weight Height: 5'5.00" Weight: 120lbs. oz. 54.794854te; 27.59 BMI Method:Stated General Appearance: WD/WN, Anxious, Chronically ill HEENT: PERRL/EOMI, Moist Mucous Membranes Neck: Full Range of Motion Respiratory: Decreased Breath Sounds Cardiovascular: Tachycardia Capillary Refill: Less Than 3 Seconds Gastrointestinal: normal bowel sounds, non tender, soft Extremity: Normal Capillary Refill, No Pedal Edema Neurologic/Psychiatric: Alert, Oriented x3, No Motor/Sensory Deficits, Normal Mood/Affect Skin: Normal Color, Warm/Dry Lymphatic: No Adenopathy Results Lab Laboratory Tests 06/18/22 04:07 06/19/22 04:00 Assessment/Plan Assessment/Plan 1 AGUS LONDONO MD Jun 19, 2022 09:22
--- NOTE | 2022-06-19 10:24 | Diagnostic Imaging Report ---
INDICATION: Shortness of breath. Comparison with 06/18/2022. FINDINGS: Cardiomegaly is again noted. Bilateral interstitial and alveolar infiltrates remain present. There has been some decrease in infiltrates since previous exam. No pneumothorax or pleural effusion. IMPRESSION: Findings are consistent with congestive failure with some improvement having occurred since previous exam. Dictated by: Dictated on workstation # [id number]
--- NOTE | 2022-06-19 10:57 | Discharge Summary ---
Discharge Summary Hospital Course Was the Problem List Reviewed?: Yes Problems/Dx: (1) Fever Status: Acute Qualifiers: Qualified Codes: R50.9 - Fever, unspecified (2) History of pericarditis (3) Cigarette smoker Hospital Course Date of Admission: Jun 15, 2022 at 10:00 Admission Diagnosis : Family Physician/Provider: Diogenes Benavidez MD Date of Discharge: 06/19/22 Discharge Diagnosis: [ ] Hospital Course: This is a 22 y WM with PMH of JRA, GERD, anxiety who presented to the ED on 06/14/22 with CP and elevated BP. He had a sore throat and increased joint pain starting 06/11 and was seen by Dr. Okeefe in clinic on 06/12 where he was started on prednisone. He developed substernal CP on 06/13. He described this as a constant sharp pain in the substernal/epigastric region that does not radiate and was an 8/10 in severity. Also having SOB with exertion. The CP and SOB improve with oxygen and worsen with talking or moving. He has also had a fever while in the hospital, Tmax 39.2 C. Denies n/v/d, cough, rhinorrhea. He is a current smoker of less than 1 ppd of cigarettes for the past 10 months. CXR 06/14 showed bibasilar opacities. He is on vancomycin and cefepime. Flu and COVID negative on 06/14. ESR, CRP and WBC count elevated. Troponin negative 06/14. EKG 06/15 with sinus tachycardia and moderate T-wave abnormalities. His mother is at bedside and contributes to history. Notes he is having a RA flare of the left knee with pain and swelling. Pt was moved to the ICU on 06/15 due to increased oxygen requirements and sepsis concerns. He was started on Vapotherm. He still had substernal pain with coughing or deep breathing. CXR on 06/16 revealed development of atelectasis and developing diffuse groundglass infiltrates. Given signs of volume overload his IV fluids were discontinued. Mother mentioned on 06/16 that patient had a history of pericarditis or endocarditis. Cardiology was consulted. Echocardiogram was performed and revealed EF of 55%, no signs of pericarditis. There was an abnormality of the tricuspid valve on echo so a KELTON was obtained and revealed no vegetations. Eraxis started given potential for fungal source as pt is immunosuppressed. On 06/18, pt developed a fever of 41.1 C and antipyretics were administered. 06/19 pt complained of increasing arthritis pain especially in his shoulders. He will trial on BIPAP though intubation for safe transfer was discussed. Dr. Cyr has spent a significant amount of time discussing the patient with his mother. Given his increasing medical needs and complicated history, he will be transferred to [facility] today. CHARLES DOYLE Labs and Pending Lab Test: Laboratory Tests 06/18/22 10:58: Glucometer 139H 06/18/22 16:08: Glucometer 102 06/18/22 20:04: Glucometer 130H 06/19/22 04:00: White Blood Count 27.2H, Red Blood Count 4.32, Hemoglobin 12.0L, Hematocrit 36L, Mean Corpuscular Volume 84, Mean Corpuscular Hemoglobin 28, Mean Corpuscular Hemoglobin Concent 33, Red Cell Distribution Width 15.8H, Platelet Count 297, Mean Platelet Volume 10.9, Immature Granulocyte % (Auto) 3, Neutrophils (%) (Auto) 90H, Lymphocytes (%) (Auto) 3L, Monocytes (%) (Auto) 4, Eosinophils (%) (Auto) 0, Basophils (%) (Auto) 0, Neutrophils # (Auto) 24.5H, Lymphocytes # (Auto) 0.7L, Monocytes # (Auto) 1.1H, Eosinophils # (Auto) 0.0, Basophils # (Auto) 0.1, Immature Granulocyte # (Auto) 0.8H, Sodium Level 136, Potassium Level 3.7, Chloride Level 101, Carbon Dioxide Level 24, Anion Gap 11, Blood Urea Nitrogen 8, Creatinine 0.61, Estimat Glomerular Filtration Rate 138, BUN/Creatinine Ratio 13, Glucose Level 152H, Calcium Level 8.7, Corrected Calcium 9.3, Phosphorus Level 2.6, Magnesium Level 2.1, Total Bilirubin 0.4, Aspartate Amino Transf (AST/SGOT) 55H, Alanine Aminotransferase (ALT/SGPT) 27, Alkaline Phosphatase 101, Total Protein 7.0, Albumin 3.2 06/19/22 04:05: Blood Gas Puncture Site RIGHT RADIAL, Blood Gas Patient Temperature 36.0, Arterial Blood pH 7.42, Arterial Blood Partial Pressure CO2 42, Arterial Blood Partial Pressure O2 84, Arterial Blood HCO3 28H, Arterial Blood Total CO2 28.8, Arterial Blood Oxygen Saturation 98, Arterial Blood Base Excess 3.2H, Sixto Test YES-POS, Blood Gas Ventilator Setting NO, Blood Gas Inspired Oxygen NA 06/19/22 05:57: Glucometer 116H 06/19/22 10:42: Glucometer 168H Microbiology 06/17/22 Blood Culture - Preliminary, Resulted No growth 06/15/22 Throat Culture - Final, Complete No Beta Strep isolated 06/14/22 Urine Culture - Final, Complete NO GROWTH Home Meds Active Reported Omeprazole 20 Mg Capsule.dr 20 Mg PO DAILY Tylenol Extra Strength (Acetaminophen) 500 Mg Tablet 500-1,000 Mg PO Q8H PRN Hydrocodone-Acetamin 5-325 mg (Hydrocodone/Acetaminophen) 5 Mg-325 Mg Tablet 1 Tab PO BID PRN Paroxetine HCl 20 Mg Tablet 20 Mg PO DAILY Prednisone 20 Mg Tab 40 Mg PO BID FILLED 06-12-2022 #20/5 DAY SUPPLY TAKES 2 (20MG) TABS Xeljanz (Tofacitinib Citrate) 5 Mg Tablet 5 Mg PO BID Assessment/Pt Instructions Transfer to Discharge Planning: <30 minutes discharge planning Discharge Instructions Discharge Diet: No Restrictions Discharge Physical Examination Vital Signs Vital Signs Date Time Temp Pulse Resp B/P (MAP) Pulse Ox O2 Delivery O2 Flow Rate FiO2 06/19/22 10:52 39.3 06/19/22 10:00 121 21 97 Vapotherm 30.00 45.00 06/19/22 09:00 121/88 (99) 06/19/22 08:00 45 General Appearance: Anxious, Chronically ill Allergies: Coded Allergies: NKANo Known Allergies (Verified Allergy, Unknown, 01/14/06) Discharge Summary Date of Admission Jun 15, 2022 at 10:00 Date of Discharge Discharge Date: Jun 19, 2022 Admission Diagnosis Assessment: Sepsis Tachycardia RA flare Plan: ICU transfer Vapotherm IV abx ach Discharge Diagnosis Continue supportive care Wean Vapotherm Start PT (1) History of pericarditis Assessment & Plan: He has a remote history of pericarditis and no history of endocarditis. He underwent an echocardiogram during this admission that did not show any evidence of pericardial fluid. There was an abnormality on his tricuspid valve of unclear significance but cannot exclude a vegetation. However, he underwent a transesophageal echocardiogram that did not show any evidence of valvular vegetations. At this point time, there do not appear to be any acute, active cardiac issues. Cardiology will follow-up as needed. He does not need long-term cardiology follow-up at this point in time. (2) Fever Status: Acute Assessment & Plan: He has a fever and elevated white blood cell count. 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 He is on broad-spectrum antibiotics. Blood cultures have been negative. He is a underwent a transesophageal echocardiogram which did not show any evidence of endocarditis. Qualifiers: Qualified Codes: R50.9 - Fever, unspecified (3) Cigarette smoker Assessment & Plan: He needs to quit smoking. He was counseled in this regard Clinical Quality Measures AMI/AHF: ASA po Prior to arrival: YUE Card DO Jun 19, 2022 10:57
[2022-06-19] MEDS: ACETAMINOPHEN 325 MG TABLET PO PRN (10:59)
[2022-06-19 11:52] VITALS: BP 125/86
--- NOTE | 2022-06-19 12:33 | Progress Note ---
CHARLES DOYLE 06/19/22 1233: Progress Note This is a 22 y WM with PMH of JRA, GERD, anxiety who presented to the ED on 06/14/22 with CP and elevated BP. He had a sore throat and increased joint pain starting 06/11 and was seen by Dr. Okeefe in clinic on 06/12 where he was started on prednisone. He developed substernal CP on 06/13. He described this as a constant sharp pain in the substernal/epigastric region that does not radiate and was an 8/10 in severity. Also having SOB with exertion. The CP and SOB improve with oxygen and worsen with talking or moving. He has also had a fever while in the hospital, Tmax 39.2 C. Denies n/v/d, cough, rhinorrhea. He is a current smoker of less than 1 ppd of cigarettes for the past 10 months. CXR 06/14 showed bibasilar opacities. He is on vancomycin and cefepime. Flu and COVID negative on 06/14. ESR, CRP and WBC count elevated. Troponin negative 06/14. EKG 06/15 with sinus tachycardia and moderate T-wave abnormalities. His mother is at bedside and contributes to history. Notes he is having a RA flare of the left knee with pain and swelling. Pt was moved to the ICU on 06/15 due to increased oxygen requirements and sepsis concerns. He was started on Vapotherm. He still had substernal pain with coughing or deep breathing. CXR on 06/16 revealed development of atelectasis and developing diffuse groundglass infiltrates. Given signs of volume overload his IV fluids were discontinued. Mother mentioned on 06/16 that patient had a history of pericarditis or endocarditis. Cardiology was consulted. Echocardiogram was performed and revealed EF of 55%, no signs of pericarditis. There was an abnormality of the tricuspid valve on echo so a KELTON was obtained and revealed no vegetations. Eraxis started given potential for fungal source as pt is immunosuppressed. On 06/18, pt developed a fever of 41.1 C and antipyretics were administered. 06/19 pt complained of increasing arthritis pain especially in his shoulders. He will trial on BIPAP though intubation for safe transfer was discussed. Dr. Cyr has spent a significant amount of time discussing the patient with his mother. Given his increasing medical needs and complicated history, he will be transferred to [facility]. ELIZABETH CYR DO 06/20/22 0523: Supervisory-Addendum Brief Verification & Attestation Participated in pt care: history, MDM, physical Personally performed: exam, history, MDM, supervision of care Care discussed with: Medical Student Procedures: n/a Results interpretation: Verified all documentation Verification and Attestation of Medical Student E/M Service A medical student performed and documented this service in my presence. I reviewed and verified all information documented by the medical student and made modifications to such information, when appropriate. I personally performed the physical exam and medical decision making. Elizabeth Cyr, Jun 20, 2022,05:23 CHARLES DOYLE Jun 19, 2022 12:33 ELIZABETH CYR DO Jun 20, 2022 05:23
== END 2022-06-19 13:55 | disposition short-term general hospital (02) | DRG 871 ==
LOC: EDUNIT# 14:03 → ER 14:06 → 4TH 17:10 → OBSVTOIN 06-15 10:00 → ICU 06-15 12:16
PROVIDERS: ADMIT Internal Medicine; ATTEND Internal Medicine
PROC: 5A09357 Assistance with Respiratory Ventilation, Less than 24 Consecutive Hours, Continuous Positive Airway Pressure (ICD-10-PCS; principal; 2022-06-19)
DX: A41.9 Sepsis, unspecified organism (principal); J18.9 Pneumonia, unspecified organism; J96.01 Acute respiratory failure with hypoxia; D84.9 Immunodeficiency, unspecified; K21.9 Gastro-esophageal reflux disease without esophagitis; Z20.822 Contact with and (suspected) exposure to COVID-19; F17.210 Nicotine dependence, cigarettes, uncomplicated; R65.20 Severe sepsis without septic shock; Z96.643 Presence of artificial hip joint, bilateral; E87.6 Hypokalemia; F41.9 Anxiety disorder, unspecified; F32.A Depression, unspecified; M08.062 Unspecified juvenile rheumatoid arthritis, left knee
CPT/HCPCS: 36415; 71045; 71046; 71275; 80053; 80202; 81000; 82805; 82947; 83605; 83735; 84100; 84145; 84484; 85007; 85025; 85027; 85379; 85610; 85652; 85730; 86141; 87040; 87081; 87088; 87430; 87636; 93005; 93306; 93312; 94640; 94660; 94760; G0378

== ENCOUNTER 2022-10-29 23:13 | Emergency (ER) | payer MEDICAID ==
[~2022-10-29] VITALS: Ht 167.7 cm; Wt 77.3 kg
[~2022-10-29 23:13] MED LIST changes: +ACET-2267 PO; +ACHD5005 PO; +OMEP20CA18 PO; +PARO20TA5 PO; +TOFA5TAB PO
[2022-10-29 23:40] LABS: BASOPHILS % (AUTO) 1 % (0-10); EOSINOPHILS # (AUTO) 0.2 10^3/uL (0.0-0.3); EOSINOPHILS % (AUTO) 2 % (0-10); HEMATOCRIT 45 % (40-54); HEMOGLOBIN 14.8 g/dL (13.3-17.7); LYMPHOCYTES # (AUTO) 3.7 10^3/uL (1.0-4.0); LYMPHOCYTES % (AUTO) 43 % (12-44); MEAN CORPUSCULAR HEMOGLOBIN 26 pg (25-34); MEAN CORPUSCULAR HGB CONC 33 g/dL (32-36); MEAN CORPUSCULAR VOLUME 80 fL (80-99); MEAN PLATELET VOLUME 10.1 fL (9.0-12.2); MONOCYTES % (AUTO) 11 % (0-12); NEUTROPHILS # (AUTO) 3.7 10^3/uL (1.8-7.8); NEUTROPHILS % (AUTO) 43 % (42-75); PLATELET COUNT 503 10^3/uL (130-400); WHITE BLOOD COUNT 8.6 10^3/uL (4.3-11.0)
--- NOTE | 2022-10-29 23:43 | ED General ---
General Stated Complaint: DIZZY Source of Information: Patient History of Present Illness Date Seen by Provider: Oct 29, 2022 Time Seen by Provider: 23:25 Initial Comments PT ARRIVES VIA POV FROM HOME WITH MOTHER PT STATES HE STARTED FEELING DIZZY ABOUT AN HOUR AGO TONIGHT, AROUND 1700, HE ATE 3 THC GUMMIES, AND DRANK A WHOLE CAN OF THC DRINK--HAS NEVER TRIED THESE BEFORE HE TOOK 2 HYDROCODONE AROUND 1800 HE DRANK AN "ENERGY DRINK" JUST PRIOR TO ARRIVAL. NO CHEST PAIN NO OTHER SYMPTOMS NO HISTORY OF SIMILAR. PT HAS JUVENILE RHEUMATOID ARTHRITIS, AND ANXIETY HE TAKES HYDROCODONE DAILY FOR HIS ARTHRITIS AND PAROXETINE DAILY FOR ANXIETY. PT STATES HE DOES NOT TAKE ANY OTHER MEDICATIONS ( PER MED RECONCILIATION, PT HAS BEEN PRESCRIBED ILARIS SINCE 06/26/22, AND LAST FILLED 10/25/22; HE WAS ALSO PRESCRIBED RASUVO ( METHOTREXATE) ON 09/24/22 --NO PROVIDERS LISTED ON MED LINDA NCILIATION) PCP: DR. DRUMMOND Allergies and Home Medications Allergies Coded Allergies: Geovanny Known Allergies (Verified Allergy, Unknown, 01/14/06) Patient Home Medication List Home Medication List Reviewed: Yes Acetaminophen (Tylenol Extra Strength) 500 Mg Tablet, 500-1,000 MG PO Q8H PRN for PAIN-MILD (1-4), (Reported) Entered as Reported by: ANA RAMIREZ on 06/15/22 1147 Hydrocodone/Acetaminophen (Hydrocodone-Acetamin 5-325 mg) 5 Mg-325 Mg Tablet, 1 TAB PO BID PRN for PAIN-MODERATE (5-7), (Reported) Entered as Reported by: ANA RAMIREZ on 06/15/22 114 Omeprazole (Omeprazole) 20 Mg Capsule.dr, 20 MG PO DAILY, (Reported) Entered as Reported by: ANA RAMIREZ on 06/15/22 1147 Paroxetine HCl (Paroxetine HCl) 20 Mg Tablet, 20 MG PO DAILY, (Reported) Entered as Reported by: ANA RAMIREZ on 06/15/22 1147 Review of Systems Review of Systems Constitutional: see HPI, dizziness EENTM: no symptoms reported Respiratory: no symptoms reported Cardiovascular: no symptoms reported Gastrointestinal: no symptoms reported Genitourinary: no symptoms reported Musculoskeletal: see HPI Skin: no symptoms reported Psychiatric/Neurological: No Symptoms Reported Hematologic/Lymphatic: No Symptoms Reported Immunological/Allergic: no symptoms reported Past Eptdiqq-Tndqwu-Yrgxuw Hx Patient Social History Tobacco Use?: No Substance use?: Yes Substance type: Misuse of prescript meds, Marijuana Alcohol Use?: Yes Alcohol Frequency: Several times a month Past Medical History Surgery/Hospitalization HX: JUVENILLE RA, TOTAL HIP BILATERALLY Surgeries: Yes (BILATERAL TOTAL HIP REPLACEMENTS 2014) Joint Replacement, Orthopedic Respiratory: No Cardiac: Yes Pericarditis Neurological: No Genitourinary: No Gastrointestinal: Yes Gastroesophageal Reflux Musculoskeletal: Yes (JUVENILE R.A. DX AGE 1; OSTEOPENIA; S/P BILATERAL HIP REPLACEMENTS 2014) Arthritis, Rheumatoid Arthritis Endocrine: No HEENT: No Cancer: No Psychosocial: Yes (SUICIDAL IDEATION) Anxiety, Depression Integumentary: No Blood Disorders: No Family Medical History Hypertension SOCIAL HISTORY: -DENIES SMOKING -ETOH--OCCASIONAL USE -DRUGS--RX DRUG ABUSE, ESPECIALLY XANAX AND TRAMADOL. Physical Exam Vital Signs Vital Signs - First Documented 10/29/22 23:15 Temp 36.3 Pulse 131 Resp 18 B/P (MAP) 164/112 (129) Pulse Ox 97 O2 Delivery Room Air Capillary Refill : Height, Weight, BMI Height: 5'5.00" Weight: 120lbs. oz. 54.253164qv; 27.59 BMI Method:Stated General Appearance: No Apparent Distress, WD/WN Neck: Normal Inspection Respiratory: Normal Breath Sounds, No Accessory Muscle Use, No Respiratory Distress Cardiovascular: No Edema, No JVD, No Murmur, Normal Peripheral Pulses, Tachycardia Gastrointestinal: Non Tender, Soft Extremity: Normal Inspection Neurologic/Psychiatric: Alert, Oriented x3, No Motor/Sensory Deficits, Normal Mood/Affect, cotton classer II-XII Norm as Tested Skin: Normal Color, Warm/Dry Progress/Results/Core Measures Suspected Sepsis SIRS Temperature: Pulse: Respiratory Rate: Laboratory Tests 10/29/22 23:31: White Blood Count 8.6 Blood Pressure / Mean: Laboratory Tests 10/29/22 23:31: Creatinine 0.66, Platelet Count 503H, Total Bilirubin 0.2 Results/Orders Lab Results Laboratory Tests Test 10/29/22 23:31 10/30/22 00:38 Range/Units White Blood Count 8.6 4.3-11.0 10^3/uL Red Blood Count 5.65 H 4.30-5.52 10^6/uL Hemoglobin 14.8 13.3-17.7 g/dL Hematocrit 45 40-54 % Mean Corpuscular Volume 80 80-99 fL Mean Corpuscular Hemoglobin 26 25-34 pg Mean Corpuscular Hemoglobin Concent 33 32-36 g/dL Red Cell Distribution Width 14.6 H 10.0-14.5 % Platelet Count 503 H 130-400 10^3/uL Mean Platelet Volume 10.1 9.0-12.2 fL Immature Granulocyte % (Auto) 1 % Neutrophils (%) (Auto) 43 42-75 % Lymphocytes (%) (Auto) 43 12-44 % Monocytes (%) (Auto) 11 0-12 % Eosinophils (%) (Auto) 2 0-10 % Basophils (%) (Auto) 1 0-10 % Neutrophils # (Auto) 3.7 1.8-7.8 10^3/uL Lymphocytes # (Auto) 3.7 1.0-4.0 10^3/uL Monocytes # (Auto) 1.0 0.0-1.0 10^3/uL Eosinophils # (Auto) 0.2 0.0-0.3 10^3/uL Basophils # (Auto) 0.0 0.0-0.1 10^3/uL Immature Granulocyte # (Auto) 0.0 0.0-0.1 10^3/uL Sodium Level 141 135-145 MMOL/L Potassium Level 3.3 L 3.6-5.0 MMOL/L Chloride Level 104 98-107 MMOL/L Carbon Dioxide Level 22 21-32 MMOL/L Anion Gap 15 H 5-14 MMOL/L Blood Urea Nitrogen 6 L 7-18 MG/DL Creatinine 0.66 0.60-1.30 MG/DL Estimat Glomerular Filtration Rate 134 BUN/Creatinine Ratio 9 Glucose Level 125 H 70-105 MG/DL Calcium Level 9.8 8.5-10.1 MG/DL Corrected Calcium 9.4 8.5-10.1 MG/DL Total Bilirubin 0.2 0.1-1.0 MG/DL Aspartate Amino Transf (AST/SGOT) 18 5-34 U/L Alanine Aminotransferase (ALT/SGPT) 26 0-55 U/L Alkaline Phosphatase 94 40-136 U/L Total Protein 8.0 6.4-8.2 GM/DL Albumin 4.5 3.2-4.5 GM/DL Serum Alcohol < 10 <10 MG/DL Urine Color YELLOW Urine Clarity CLEAR Urine pH 7.0 5-9 Urine Specific [place] 1.010 L 1.016-1.022 Urine Protein NEGATIVE NEGATIVE Urine Glucose (UA) NEGATIVE NEGATIVE Urine Ketones NEGATIVE NEGATIVE Urine Nitrite NEGATIVE NEGATIVE Urine Bilirubin NEGATIVE NEGATIVE Urine Urobilinogen 0.2 < = 1.0 MG/DL Urine Leukocyte Esterase NEGATIVE NEGATIVE Urine RBC (Auto) NEGATIVE NEGATIVE Urine RBC NONE /HPF Urine WBC NONE /HPF Urine Crystals NONE /LPF Urine Bacteria NEGATIVE /HPF Urine Casts NONE /LPF Urine Mucus NEGATIVE /LPF Urine Culture Indicated NO Urine Opiates Screen POSITIVE H NEGATIVE Urine Oxycodone Screen NEGATIVE NEGATIVE Urine Methadone Screen NEGATIVE NEGATIVE Urine Propoxyphene Screen NEGATIVE NEGATIVE Urine Barbiturates Screen NEGATIVE NEGATIVE Ur Tricyclic Antidepressants Screen NEGATIVE NEGATIVE Urine Phencyclidine Screen NEGATIVE NEGATIVE Urine Amphetamines Screen NEGATIVE NEGATIVE Urine Methamphetamines Screen NEGATIVE NEGATIVE Urine Benzodiazepines Screen NEGATIVE NEGATIVE Urine Cocaine Screen NEGATIVE NEGATIVE Urine Cannabinoids Screen POSITIVE H NEGATIVE My Orders Orders - MAGDALENA SUN DO Ed Iv/Invasive Line Start (10/29/22 23:19) Ekg Tracing (10/29/22 23:19) Monitor-Rhythm Ecg Trace Only (10/29/22 23:19) Alcohol (10/29/22 23:19) Cbc With Automated Diff (10/29/22 23:19) Comprehensive Metabolic Panel (10/29/22 23:19) Drug Screen Stat (Urine) (10/29/22 23:19) Ua Culture If Indicated (10/29/22 23:19) Ed Iv/Invasive Line Start (10/29/22 23:37) Lactated Ringers (Lr 1000 Ml Iv Solution (10/29/22 23:45) Medications Given in ED Current Medications Medications Dose Ordered Sig/Karel Route Start Time Stop Time Status Last Admin Dose Admin Lactated Ringer's 1,000 ml @ 0 mls/hr Q0M ONCE IV 10/29/22 23:45 10/29/22 23:46 DC 10/29/22 23:44 0 MLS/HR Vital Signs/I&O 10/29/22 10/30/22 23:15 01:30 Temp 36.3 36.3 Pulse 131 95 Resp 18 16 B/P (MAP) 164/112 (129) 148/104 Pulse Ox 97 98 O2 Delivery Room Air Room Air Capillary Refill : Progress Note : Progress Note HR 120'S, BP 160'S/100'S ON ARRIVAL O2 SATS UPPER 90'S GIVEN: -IV FLUIDS EKG, LAB AND UA DONE PT STATES HE IS FEELING BETTER AFTER IV FLUIDS PRIOR TO DISMISSAL, PT'S HR < 100, BP DOWN TO 140'S/70'S. DISCUSSED WITH PT AND MOTHER, HIS TEST RESULTS, ANTICIPATED COURSE, NEED FOR FOLLOW UP AND RETURN PRECAUTIONS ALSO STRESSED THE IMPORTANCE OF STOPPING ALL MARIJUANA USE, STOPPING ALL CAFFEINE AND STIMULANT USE, AND STOPPING "ENERGY DRINKS" REVIEWED PRIOR RECORDS, ER VISITS, ADMIT NOTES/H&P'S/CONSULTS/DISCHARGE SUMMARIES, TESTS/PROCEDURES ECG Initial ECG Impression Date: Oct 29, 2022 Initial ECG Impression Time: 23:26 Initial ECG Rate: 124 Initial ECG Rhythm: S.Tach Initial ECG Impression: Nonspecific Changes Initial ECG Comparisson: Unchanged Comment INTERPRETED BY ME Departure Impression Primary Impression: THC USE Additional Impression: STIMULANT USE Disposition: 01 HOME, SELF-CARE Condition: Improved Departure-Patient Inst. Decision time for Depature: 01:15 Referrals: ADRIANA DRUMMOND MD (PCP/Family) Primary Care Physician Patient Instructions: Marijuana Use and Addiction (DC) Add. Discharge Instructions: NO DRUGS OF ANY KIND EXCEPT WHAT IS PRESCRIBED TO YOU BY YOUR DR NO CAFFEINE OR ENERGY DRINKS OR ANY STIMULANTS INCREASE YOUR REGULAR WATER INTAKE, WELL GATORADE FOLLOW UP WITH DR. DRUMMOND NEEDED, RETURN TO ER IF SYMPTOMS WORSEN MAGDALENA SUN DO Oct 29, 2022 23:43
[2022-10-29] MEDS ORDERED: LACTATED RINGERS 1,000 ML IV ONE (23:45)
[2022-10-29 23:51] LABS: ALBUMIN 4.5 GM/DL (3.2-4.5); CHLORIDE 104 MMOL/L (98-107); POTASSIUM 3.3 MMOL/L (3.6-5.0); SODIUM 141 MMOL/L (135-145)
[2022-10-29 23:52] LABS: CALCIUM 9.8 MG/DL (8.5-10.1)
[2022-10-29 23:54] LABS: GLUCOSE 125 MG/DL (70-105)
[2022-10-29 23:55] LABS: BILIRUBIN,TOTAL 0.2 MG/DL (0.1-1.0); CARBON DIOXIDE 22 MMOL/L (21-32)
[2022-10-29 23:57] LABS: ALKALINE PHOSPHATASE 94 U/L (40-136); CREATININE SERUM 0.66 MG/DL (0.60-1.30); GFR ESTIMATED 134
[2022-10-29 23:58] LABS: BUN/CREATININE RATIO 9
[2022-10-30] LABS: ALANINE AMINOTRANSFERASE 26 U/L (0-55)
[2022-10-30 00:47] LABS: BILIRUBIN,URINE NEGATIVE (NEGATIVE); CLARITY,URINE CLEAR; COLOR,URINE YELLOW; GLUCOSE, URINE (UA) NEGATIVE (NEGATIVE); KETONES,URINE NEGATIVE (NEGATIVE); LEUKOCYTE ESTERASE ,URINE NEGATIVE (NEGATIVE); NITRITE,URINE NEGATIVE (NEGATIVE); PROTEIN,URINE NEGATIVE (NEGATIVE)
[2022-10-30 01:04] LABS: AMPHETAMINE SCREEN, URINE NEGATIVE (NEGATIVE); BARBITURATE SCREEN URINE NEGATIVE (NEGATIVE); BENZODIAZEPINES SCREEN URINE NEGATIVE (NEGATIVE); CANNABINOID SCREEN, URINE POSITIVE (NEGATIVE); COCAINE SCREEN URINE NEGATIVE (NEGATIVE); METHADONE STAT NEGATIVE (NEGATIVE); OPIATE SCREEN URINE POSITIVE (NEGATIVE); OXYCODONE STAT NEGATIVE (NEGATIVE); TRICYCLIC ANTIDEPRESSANTS SCRE NEGATIVE (NEGATIVE)
[2022-10-30 01:05] LABS: PROPOXYPHENE STAT NEGATIVE (NEGATIVE)
[2022-10-30 01:07] LABS: BACTERIA,URINE NEGATIVE /HPF
[2022-10-30 01:30] VITALS: BP 148/104
== END 2022-10-30 01:30 | disposition home or self-care (01) ==
LOC: EDUNIT# 23:13 → ER 23:14
DX: F12.90 Cannabis use, unspecified, uncomplicated (principal); F15.90 Other stimulant use, unspecified, uncomplicated; M06.9 Rheumatoid arthritis, unspecified; F41.9 Anxiety disorder, unspecified; Z79.891 Long term (current) use of opiate analgesic; Z79.899 Other long term (current) drug therapy; Z28.310 Unvaccinated for COVID-19
CPT/HCPCS: 36415; 80053; 80306; 80320; 81000; 85025; 93005; 93041

== ENCOUNTER 2023-04-21 16:46 | Emergency (ER) | payer MEDICAID ==
[2023-04-21 16:46] VITALS: BP 141/96
--- NOTE | 2023-04-21 16:56 | ED Psychosocial ---
General Chief Complaint: Suicidal Ideation Risk Stated Complaint: RT ARM LAC - SELF HARM Source: patient Exam Limitations: no limitations History of Present Illness Date Seen by Provider: Apr 21, 2023 Time Seen by Provider: 16:54 Initial Comments Patient is a 23-year-old male who presents to the ED by EMS for suicidal thoughts and with cutting to his left arm. This occurred about 1 hour ago. Supposedly according to EMS patient was in argument with family. Patient states that he started cutting because he was having thoughts of wanting to . He is currently denying of any suicidal homicidal thoughts. Does have a history of depression anxiety currently on medication. Does follow with nurse practitioner. Denies last known tetanus shot. Patient denies any drug use or alcohol use. Denies of any chest pain, shortness of breath, headache, dizziness, vomit, diarrhea, hallucinations. Patient would not elaborate on the incident today. He states increased depression at home and family matters Allergies and Home Medications Allergies Coded Allergies: JOSE DE JESUSANo Known Allergies (Verified Allergy, Unknown, 01/14/06) Patient Home Medication List Home Medication List Reviewed: Yes Acetaminophen (Tylenol Extra Strength) 500 Mg Tablet, 500-1,000 MG PO Q8H PRN for PAIN-MILD (1-4), (Reported) Entered as Reported by: ANA RAMIREZ on 06/15/22 1147 Hydrocodone/Acetaminophen (Hydrocodone-Acetamin 5-325 mg) 5 Mg-325 Mg Tablet, 1 TAB PO BID PRN for PAIN-MODERATE (5-7), (Reported) Entered as Reported by: ANA RAMIREZ on 06/15/22 1147 Omeprazole (Omeprazole) 20 Mg Capsule.dr, 20 MG PO DAILY, (Reported) Entered as Reported by: ANA RAMIREZ on 06/15/22 114 Paroxetine HCl (Paroxetine HCl) 20 Mg Tablet, 20 MG PO DAILY, (Reported) Entered as Reported by: ANA RAMIREZ on 06/15/22 1147 Review of Systems Constitutional: No chills, No diaphoresis, No fever, No malaise, No weakness EENTM: No ear pain, No blurred vision, No double vision Respiratory: No cough, No dyspnea on exertion Cardiovascular: No chest pain, No edema Gastrointestinal: No abdominal pain, No diarrhea, No nausea, No vomiting Genitourinary: No decreased output, No discharge, No dysuria, No frequency Musculoskeletal: No back pain, No joint pain Skin: change in color All Other Systems Reviewed Negative Unless Noted: Yes Past Vwkhfgm-Bbwqdk-Lvhbvp Hx Past Medical History Surgery/Hospitalization HX: [place] RA, TOTAL HIP BILATERALLY Surgeries: Yes (BILATERAL TOTAL HIP REPLACEMENTS 2014) Joint Replacement, Orthopedic Respiratory: No Cardiac: Yes Pericarditis Neurological: No Genitourinary: No Gastrointestinal: Yes Gastroesophageal Reflux Musculoskeletal: Yes (JUVENILE R.A. DX AGE 1; OSTEOPENIA; S/P BILATERAL HIP REPLACEMENTS 2014) Arthritis, Rheumatoid Arthritis Endocrine: No HEENT: No Cancer: No Psychosocial: Yes (SUICIDAL IDEATION) Anxiety, Depression Integumentary: No Blood Disorders: No Family Medical History Hypertension SOCIAL HISTORY: -DENIES SMOKING -ETOH--OCCASIONAL USE -DRUGS--RX DRUG ABUSE, ESPECIALLY XANAX AND TRAMADOL. Physical Exam Vital Signs - First Documented 04/21/23 16:46 Temp 36.8 Pulse 114 Resp 16 B/P (MAP) 141/96 (111) Pulse Ox 98 O2 Delivery Room Air Capillary Refill : Height, Weight, BMI Height: 5'5.00" Weight: 120lbs. oz. 54.228503re; 27.00 BMI Method:Stated General Appearance: WD/WN, no apparent distress HEENT: PERRL/EOMI, normal ENT inspection, TMs normal, pharynx normal Neck: non-tender, full range of motion, supple Respiratory: chest non-tender, lungs clear, normal breath sounds, no respiratory distress, no accessory muscle use Cardiovascular: regular rate, rhythm, no edema, no gallop, no JVD Gastrointestinal: normal bowel sounds, non tender, soft, no organomegaly Extremities: normal range of motion, other (Superficial abrasions to the left arm) Neurologic/Psychiatric: alert, normal mood/affect, oriented x 3 Appearance/Memory: appropriate appearance, appropriate insight Behavior/Eye Contact: cooperative, good eye contact Thoughts/Hallucinations: normal thought pattern, no apparent hallucination Skin: other (Multiple superficial abrasions to the left dorsum arm) Progress/Results/Core Measures Results/Orders Lab Results Laboratory Tests Test 04/21/23 16:55 04/21/23 16:59 04/21/23 17:05 Range/Units White Blood Count 8.8 4.3-11.0 10^3/uL Red Blood Count 5.21 4.30-5.52 10^6/uL Hemoglobin 13.8 13.3-17.7 g/dL Hematocrit 42 40-54 % Mean Corpuscular Volume 81 80-99 fL Mean Corpuscular Hemoglobin 27 25-34 pg Mean Corpuscular Hemoglobin Concent 33 32-36 g/dL Red Cell Distribution Width 13.6 10.0-14.5 % Platelet Count 433 H 130-400 10^3/uL Mean Platelet Volume 10.2 9.0-12.2 fL Immature Granulocyte % (Auto) 0 % Neutrophils (%) (Auto) 63 42-75 % Lymphocytes (%) (Auto) 22 12-44 % Monocytes (%) (Auto) 11 0-12 % Eosinophils (%) (Auto) 3 0-10 % Basophils (%) (Auto) 1 0-10 % Neutrophils # (Auto) 5.5 1.8-7.8 10^3/uL Lymphocytes # (Auto) 1.9 1.0-4.0 10^3/uL Monocytes # (Auto) 1.0 0.0-1.0 10^3/uL Eosinophils # (Auto) 0.3 0.0-0.3 10^3/uL Basophils # (Auto) 0.1 0.0-0.1 10^3/uL Immature Granulocyte # (Auto) 0.0 0.0-0.1 10^3/uL Sodium Level 143 135-145 MMOL/L Potassium Level 3.6 3.6-5.0 MMOL/L Chloride Level 107 98-107 MMOL/L Carbon Dioxide Level 23 21-32 MMOL/L Anion Gap 13 5-14 MMOL/L Blood Urea Nitrogen 8 7-18 MG/DL Creatinine 0.70 0.60-1.30 MG/DL Estimat Glomerular Filtration Rate 131 BUN/Creatinine Ratio 11 Glucose Level 112 H 70-105 MG/DL Calcium Level 9.8 8.5-10.1 MG/DL Corrected Calcium 9.5 8.5-10.1 MG/DL Total Bilirubin 0.4 0.1-1.0 MG/DL Aspartate Amino Transf (AST/SGOT) 19 5-34 U/L Alanine Aminotransferase (ALT/SGPT) 35 0-55 U/L Alkaline Phosphatase 79 40-136 U/L Total Protein 7.9 6.4-8.2 GM/DL Albumin 4.4 3.2-4.5 GM/DL Salicylates Level < 5.0 L 5.0-20.0 MG/DL Acetaminophen Level < 10 L 10-30 UG/ML Serum Alcohol < 10 <10 MG/DL Urine Color YELLOW Urine Clarity CLEAR Urine pH 6.5 5-9 Urine Specific [place] 1.025 H 1.016-1.022 Urine Protein NEGATIVE NEGATIVE Urine Glucose (UA) NEGATIVE NEGATIVE Urine Ketones TRACE H NEGATIVE Urine Nitrite NEGATIVE NEGATIVE Urine Bilirubin NEGATIVE NEGATIVE Urine Urobilinogen 0.2 < = 1.0 MG/DL Urine Leukocyte Esterase NEGATIVE NEGATIVE Urine RBC (Auto) NEGATIVE NEGATIVE Urine RBC NONE /HPF Urine WBC RARE /HPF Urine Squamous Epithelial Cells NONE /HPF Urine Crystals PRESENT H /LPF Urine Amorphous Sediment FEW BRENNAN URATES H /LPF Urine Bacteria TRACE /HPF Urine Casts NONE /LPF Urine Mucus SMALL H /LPF Urine Culture Indicated NO Urine Opiates Screen NEGATIVE NEGATIVE Urine Oxycodone Screen NEGATIVE NEGATIVE Urine Methadone Screen NEGATIVE NEGATIVE Urine Propoxyphene Screen NEGATIVE NEGATIVE Urine Barbiturates Screen NEGATIVE NEGATIVE Ur Tricyclic Antidepressants Screen NEGATIVE NEGATIVE Urine Phencyclidine Screen NEGATIVE NEGATIVE Urine Amphetamines Screen NEGATIVE NEGATIVE Urine Methamphetamines Screen NEGATIVE NEGATIVE Urine Benzodiazepines Screen NEGATIVE NEGATIVE Urine Cocaine Screen NEGATIVE NEGATIVE Urine Cannabinoids Screen POSITIVE H NEGATIVE SARS-CoV-2 RNA (RT-PCR) Not Detected Not Detecte My Orders Orders - BERNICE PEÑA Ua Culture If Indicated (04/21/23 16:52) Cbc And Automated Diff (04/21/23 16:52) Comprehensive Metabolic Panel (04/21/23 16:52) Alcohol (04/21/23 16:52) Drug Screen Stat (Urine) (04/21/23 16:52) Acetaminophen (04/21/23 16:52) Salicylate (04/21/23 16:52) Ekg Tracing (04/21/23 16:52) Ed Iv/Invasive Line Start (04/21/23 16:52) Monitor-Rhythm Ecg Trace Only (04/21/23 16:52) Bh Status Checks/Observation O Q15M (04/21/23 16:52) Covid 19 Inhouse Test (04/21/23 16:52) Dipht/Pertuss(Acell)/Tet Adult (Dipht/Pe (04/21/23 17:00) Medications Given in ED Current Medications Medications Dose Ordered Sig/Karel Route Start Time Stop Time Status Last Admin Dose Admin Diphtheria/ Tetanus/Acell Pertussis 0.5 ml ONCE ONCE IM 04/21/23 17:00 04/21/23 17:01 DC 04/21/23 17:47 0.5 ML Vital Signs/I&O 04/21/23 16:46 Temp 36.8 Pulse 114 Resp 16 B/P (MAP) 141/96 (111) Pulse Ox 98 O2 Delivery Room Air Comment Sinus tachycardia, possible left atrial lodgment, 105 bpm, QRS duration 106 MS, QTc 411 MS Departure Communication (PCP) Patient presents ED with suicidal thoughts. Patient Had thoughts today ended up cutting his left arm multiple spots with a knife. Mother did mention that he ma de some comments to his siblings and has been confrontational throughout the week. On arrival he has no current suicidal or homicidal thoughts. No drug use or alcohol use. Patient states that this stemmed from argument with his family. Patient is calm and cooperative. Psych work-up was initiated. Moderate risk for suicide. 15-minute checks. Psych work-up was initiated. Lab work was grossly unremarkable. He has no current complaints. Updated his tetanus. Wounds were cleaned. All superficial abrasions to the left arm no sutures needed. The patient was evaluated by behavioral health. At this time safety plan was recommended. Patient is agreeable with this plan. Patient did sign the safety plan and felt safe to be discharged. Does have a therapist. Currently on medication. Patient has been cooperative during his stay. If any worsening symptoms return back to ED for further evaluation. Patient agrees with plan of action. Patient has no access to guns. Patient feels safe to return home Impression Primary Impression: Suicidal thoughts Disposition: 01 HOME, SELF-CARE Condition: Stable Departure-Patient Inst. Decision time for Depature: 18:58 Referrals: ADRIANA DRUMMOND MD (PCP/Family) Primary Care Physician Patient Instructions: OUTPT [facility] Add. Discharge Instructions: Recommend follow-up with your therapist. Apply topical Neosporin to the wounds. If any worsening symptoms at home to return back to ED All discharge instructions reviewed with patient and/or family. Voiced understanding. BERNICE PEÑA Apr 21, 2023 16:56
[2023-04-21] MEDS ORDERED: Tetanus/Diphtheria/Pertussis (Acell) ADULT Vaccine 0.5 ML IM ONE (17:00)
[2023-04-21 17:02] LABS: BASOPHILS # (AUTO) 0.1 10^3/uL (0.0-0.1); BASOPHILS % (AUTO) 1 % (0-10); EOSINOPHILS # (AUTO) 0.3 10^3/uL (0.0-0.3); EOSINOPHILS % (AUTO) 3 % (0-10); HEMATOCRIT 42 % (40-54); HEMOGLOBIN 13.8 g/dL (13.3-17.7); LYMPHOCYTES # (AUTO) 1.9 10^3/uL (1.0-4.0); LYMPHOCYTES % (AUTO) 22 % (12-44); MEAN CORPUSCULAR HEMOGLOBIN 27 pg (25-34); MEAN CORPUSCULAR HGB CONC 33 g/dL (32-36); MEAN CORPUSCULAR VOLUME 81 fL (80-99); MEAN PLATELET VOLUME 10.2 fL (9.0-12.2); MONOCYTES % (AUTO) 11 % (0-12); NEUTROPHILS # (AUTO) 5.5 10^3/uL (1.8-7.8); NEUTROPHILS % (AUTO) 63 % (42-75); PLATELET COUNT 433 10^3/uL (130-400); WHITE BLOOD COUNT 8.8 10^3/uL (4.3-11.0)
[2023-04-21 17:25] LABS: BILIRUBIN,URINE NEGATIVE (NEGATIVE); CLARITY,URINE CLEAR; COLOR,URINE YELLOW; GLUCOSE, URINE (UA) NEGATIVE (NEGATIVE); KETONES,URINE TRACE (NEGATIVE); NITRITE,URINE NEGATIVE (NEGATIVE); PH,URINE 6.5 (5-9); PROTEIN,URINE NEGATIVE (NEGATIVE)
[2023-04-21 17:26] LABS: AMORPHOUS SEDIMENT,UR FEW AMOR URATES /LPF; BACTERIA,URINE TRACE /HPF; LEUKOCYTE ESTERASE ,URINE NEGATIVE (NEGATIVE); WBC,URINE RARE /HPF
[2023-04-21 17:27] LABS: ALANINE AMINOTRANSFERASE 35 U/L (0-55); ALBUMIN 4.4 GM/DL (3.2-4.5); ALKALINE PHOSPHATASE 79 U/L (40-136); BILIRUBIN,TOTAL 0.4 MG/DL (0.1-1.0); BUN/CREATININE RATIO 11; CALCIUM 9.8 MG/DL (8.5-10.1); CARBON DIOXIDE 23 MMOL/L (21-32); CHLORIDE 107 MMOL/L (98-107); GFR ESTIMATED 131; GLUCOSE 112 MG/DL (70-105); POTASSIUM 3.6 MMOL/L (3.6-5.0); SALICYLATE < 5.0 MG/DL (5.0-20.0); SODIUM 143 MMOL/L (135-145); TOTAL PROTEIN 7.9 GM/DL (6.4-8.2)
[2023-04-21 17:29] LABS: ACETAMINOPHEN < 10 UG/ML (10-30)
[2023-04-21 17:44] LABS: AMPHETAMINE SCREEN, URINE NEGATIVE (NEGATIVE); BARBITURATE SCREEN URINE NEGATIVE (NEGATIVE); CANNABINOID SCREEN, URINE POSITIVE (NEGATIVE); COCAINE SCREEN URINE NEGATIVE (NEGATIVE); METHADONE STAT NEGATIVE (NEGATIVE); OPIATE SCREEN URINE NEGATIVE (NEGATIVE); OXYCODONE STAT NEGATIVE (NEGATIVE); PROPOXYPHENE STAT NEGATIVE (NEGATIVE); TRICYCLIC ANTIDEPRESSANTS SCRE NEGATIVE (NEGATIVE)
== END 2023-04-21 19:19 | disposition home or self-care (01) ==
LOC: EDUNIT# 16:50 → ER 16:51
DX: S40.812A Abrasion of left upper arm, initial encounter (principal); R45.851 Suicidal ideations; F41.8 Other specified anxiety disorders; Z79.899 Other long term (current) drug therapy; X78.1XXA Intentional self-harm by knife, initial encounter
CPT/HCPCS: 36415; 80053; 80306; 80320; 80329; 81000; 85025; 87636; 90471; 90715; 93005

== ENCOUNTER 2023-06-12 10:34 | Emergency (ER) | payer MEDICAID ==
[2023-06-12] MEDS ORDERED: NS IV 1000 ML 1,000 ML IV SCH (11:00)
[2023-06-12 11:10] LABS: BASOPHILS # (AUTO) 0.1 10^3/uL (0.0-0.1); BASOPHILS % (AUTO) 1 % (0-10); EOSINOPHILS # (AUTO) 0.1 10^3/uL (0.0-0.3); EOSINOPHILS % (AUTO) 1 % (0-10); HEMATOCRIT 50 % (40-54); HEMOGLOBIN 15.9 g/dL (13.3-17.7); LYMPHOCYTES # (AUTO) 1.1 10^3/uL (1.0-4.0); LYMPHOCYTES % (AUTO) 7 % (12-44); MEAN CORPUSCULAR HEMOGLOBIN 27 pg (25-34); MEAN CORPUSCULAR HGB CONC 32 g/dL (32-36); MEAN CORPUSCULAR VOLUME 83 fL (80-99); MEAN PLATELET VOLUME 10.1 fL (9.0-12.2); MONOCYTES # (AUTO) 1.6 10^3/uL (0.0-1.0); MONOCYTES % (AUTO) 11 % (0-12); NEUTROPHILS # (AUTO) 12.3 10^3/uL (1.8-7.8); NEUTROPHILS % (AUTO) 80 % (42-75); PLATELET COUNT 435 10^3/uL (130-400); WHITE BLOOD COUNT 15.3 10^3/uL (4.3-11.0)
[2023-06-12] MEDS ORDERED: morphine INJ 10 MG/ML 1ML (SYR OR VIAL) IVP STA ×2 (11:17→13:34)
[2023-06-12 11:23] LABS: ALBUMIN 4.5 GM/DL (3.2-4.5); POTASSIUM 3.6 MMOL/L (3.6-5.0)
[2023-06-12 11:24] LABS: CALCIUM 10.7 MG/DL (8.5-10.1)
--- NOTE | 2023-06-12 11:24 | ED General ---
General Chief Complaint: General Problems/Pain Stated Complaint: ARTHIRITIS/HIGH BLOOD PRESSURE Nursing Triage Note: PT AMB TO RM 5 PT SENT FROM [facility] W HTN AND RA FLARE UP. PT HAVING INCREASED PAIN AND STIFFNESS IN ALL JOINTS. PT STATES HAS THIS SAME EPISODE LAST YEAR REQUIRING DAILY DOSES OF KINERET. 01/11 DISCOMFORT LEVEL Source of Information: Patient Exam Limitations: No Limitations History of Present Illness Date Seen by Provider: Jun 12, 2023 Time Seen by Provider: 10:39 Initial Comments Mr. 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 He is on daily prednisone to control symptoms. He additionally takes Kineret. His corporate responsibility officer is Dr. Bethanie Carlos at [facility]. He reports compliance with his medications. He denies any symptoms of acute infectious illness such as cough, congestion, vomiting, diarrhea, fever, etc. He states this is very reminiscent to the flare he had when diagnosed with stills disease last year. He reports significant pain in the joints at this time, especially the right shoulder. He denies any myalgias and his muscles are not tender. He also reports palpitations with racing heart. Sinus tachycardia with a heart rate around 130 as noted on the monitor. He did take his medications as usual before presenting to the [facility] clinic this morning. His primary care provider is Dr. Lisa Olson. Allergies and Home Medications Allergies Coded Allergies: JOSE DE JESUSANo Known Allergies (Verified Allergy, Unknown, 01/14/06) Patient Home Medication List Home Medication List Reviewed: Yes Acetaminophen (Tylenol Extra Strength) 500 Mg Tablet, 500-1,000 MG PO Q8H PRN for PAIN-MILD (1-4), (Reported) Entered as Reported by: ANA RAMIREZ on 06/15/22 1147 Hydrocodone/Acetaminophen (Hydrocodone-Acetamin 5-325 mg) 5 Mg-325 Mg Tablet, 1 TAB PO BID PRN for PAIN-MODERATE (5-7), (Reported) Entered as Reported by: ANA RAMIREZ on 06/15/22 1147 Omeprazole (Omeprazole) 20 Mg Capsule., 20 MG PO DAILY, (Reported) Entered as Reported by: ANA RAMIREZ on 06/15/22 1147 Oxycodone HCl/Acetaminophen (Percocet 5-325 mg Tablet) 1 Each Tablet, 1-2 TAB PO Q4H PRN for PAIN-MODERATE TO SEVERE Prescribed by: MAURICIO HANKS on 06/12/23 1401 Paroxetine HCl (Paroxetine HCl) 20 Mg Tablet, 20 MG PO DAILY, (Reported) Entered as Reported by: ANA RAMIREZ on 06/15/22 1147 Prednisone (Prednisone) 20 Mg Tab, 60 MG PO DAILY Prescribed by: MAURICIO HANKS on 06/12/23 1401 Review of Systems Review of Systems Constitutional: see HPI EENTM: no symptoms reported Respiratory: no symptoms reported Cardiovascular: see HPI Gastrointestinal: no symptoms reported Genitourinary: no symptoms reported Musculoskeletal: see HPI Skin: no symptoms reported Psychiatric/Neurological: No Symptoms Reported Hematologic/Lymphatic: No Symptoms Reported Immunological/Allergic: no symptoms reported Past Twsufug-Kkmkyc-Sffvdk Hx Patient Social History Tobacco Use?: Yes Tobacco type used: Cigarettes Smoking Status: Current Everyday Smoker Use of E-Cig and/or Vaping dev: No Substance use?: No Alcohol Use?: No Pt feels they are or have been: No Past Medical History Surgery/Hospitalization HX: [place] RA, TOTAL HIP BILATERALLY, depression Surgeries: Yes (BILATERAL TOTAL HIP REPLACEMENTS 2014) Joint Replacement (bilateral hips), Orthopedic Respiratory: No Cardiac: Yes Pericarditis Neurological: No Genitourinary: No Gastrointestinal: Yes Gastroesophageal Reflux Musculoskeletal: Yes (JUVENILE R.A. DX AGE 1; STILL'S Dz 2021; OSTEOPENIA; S/P LENNY HIP REPL 2014) Arthritis, Rheumatoid Arthritis Endocrine: No HEENT: No Cancer: No Psychosocial: Yes (SUICIDAL IDEATION) Anxiety, Depression Integumentary: No Blood Disorders: No Family Medical History Hypertension SOCIAL HISTORY: -DENIES SMOKING -ETOH--OCCASIONAL USE -DRUGS--RX DRUG ABUSE, ESPECIALLY XANAX AND TRAMADOL. Physical Exam Vital Signs Vital Signs - First Documented 06/12/23 10:45 Temp 37.1 Pulse 130 Resp 14 B/P (MAP) 148/99 (115) Pulse Ox 97 O2 Delivery Room Air Capillary Refill : Less Than 3 Seconds Height, Weight, BMI Height: 5'5.00" Weight: 120lbs. oz. 54.901950cd; BMI Method:Stated General Appearance: No Apparent Distress, WD/WN HEENT: PERRL/EOMI, TMs Normal, Normal ENT Inspection, Pharynx Normal Neck: Normal Inspection Respiratory: Lungs Clear, Normal Breath Sounds, No Accessory Muscle Use Cardiovascular: No Edema, No Murmur, Tachycardia (regular) Gastrointestinal: Non Tender, Soft Extremity: Other (generalized joint TTP, especially the right shoulder. No muscle TTP of the large muscle groups) Neurologic/Psychiatric: Alert, Oriented x3, No Motor/Sensory Deficits, Normal Mood/Affect Skin: Normal Color, Warm/Dry Progress/Results/Core Measures Suspected Sepsis SIRS Temperature: Pulse: 130 Respiratory Rate: 14 Laboratory Tests 06/12/23 11:08: White Blood Count 15.3H Blood Pressure 148 /99 Mean: 115 Laboratory Tests 06/12/23 11:08: Creatinine 0.65, Platelet Count 435H, Total Bilirubin 0.3 Results/Orders Lab Results Laboratory Tests Test 06/12/23 11:08 06/12/23 11:23 06/12/23 11:24 Range/Units White Blood Count 15.3 H 4.3-11.0 10^3/uL Red Blood Count 6.00 H 4.30-5.52 10^6/uL Hemoglobin 15.9 13.3-17.7 g/dL Hematocrit 50 40-54 % Mean Corpuscular Volume 83 80-99 fL Mean Corpuscular Hemoglobin 27 25-34 pg Mean Corpuscular Hemoglobin Concent 32 32-36 g/dL Red Cell Distribution Width 17.5 H 10.0-14.5 % Platelet Count 435 H 130-400 10^3/uL Mean Platelet Volume 10.1 9.0-12.2 fL Immature Granulocyte % (Auto) 1 % Neutrophils (%) (Auto) 80 H 42-75 % Lymphocytes (%) (Auto) 7 L 12-44 % Monocytes (%) (Auto) 11 0-12 % Eosinophils (%) (Auto) 1 0-10 % Basophils (%) (Auto) 1 0-10 % Neutrophils # (Auto) 12.3 H 1.8-7.8 10^3/uL Lymphocytes # (Auto) 1.1 1.0-4.0 10^3/uL Monocytes # (Auto) 1.6 H 0.0-1.0 10^3/uL Eosinophils # (Auto) 0.1 0.0-0.3 10^3/uL Basophils # (Auto) 0.1 0.0-0.1 10^3/uL Immature Granulocyte # (Auto) 0.1 0.0-0.1 10^3/uL Neutrophils % (Manual) 82 % Lymphocytes % (Manual) 9 % Monocytes % (Manual) 8 % Eosinophils % (Manual) 1 % Basophils % (Manual) 0 % Band Neutrophils 0 % Anisocytosis MODERATE Erythrocyte Sedimentation Rate 1 0-15 MM/HR Sodium Level 141 135-145 MMOL/L Potassium Level 3.6 3.6-5.0 MMOL/L Chloride Level 103 98-107 MMOL/L Carbon Dioxide Level 23 21-32 MMOL/L Anion Gap 15 H 5-14 MMOL/L Blood Urea Nitrogen 9 7-18 MG/DL Creatinine 0.65 0.60-1.30 MG/DL Estimat Glomerular Filtration Rate 134 BUN/Creatinine Ratio 14 Glucose Level 105 70-105 MG/DL Calcium Level 10.7 H 8.5-10.1 MG/DL Corrected Calcium 10.3 H 8.5-10.1 MG/DL Total Bilirubin 0.3 0.1-1.0 MG/DL Aspartate Amino Transf (AST/SGOT) 16 5-34 U/L Alanine Aminotransferase (ALT/SGPT) 25 0-55 U/L Alkaline Phosphatase 80 40-136 U/L C-Reactive Protein High Sensitivity 5.02 H 0.00-0.50 MG/DL Total Protein 8.0 6.4-8.2 GM/DL Albumin 4.5 3.2-4.5 GM/DL Urine Color YELLOW Urine Clarity CLEAR Urine pH 7.0 5-9 Urine Specific [place] 1.015 L 1.016-1.022 Urine Protein NEGATIVE NEGATIVE Urine Glucose (UA) NEGATIVE NEGATIVE Urine Ketones NEGATIVE NEGATIVE Urine Nitrite NEGATIVE NEGATIVE Urine Bilirubin NEGATIVE NEGATIVE Urine Urobilinogen 0.2 < = 1.0 MG/DL Urine Leukocyte Esterase NEGATIVE NEGATIVE Urine RBC (Auto) NEGATIVE NEGATIVE Urine RBC RARE /HPF Urine WBC NONE /HPF Urine Squamous Epithelial Cells NONE /HPF Urine Crystals NONE /LPF Urine Bacteria NEGATIVE /HPF Urine Casts NONE /LPF Urine Mucus NEGATIVE /LPF Urine Culture Indicated NO Influenza Type A (RT-PCR) Not Detected Not Detecte Influenza Type B (RT-PCR) Not Detected Not Detecte SARS-CoV-2 RNA (RT-PCR) Not Detected Not Detecte My Orders Orders - MAURICIO GUERRA MD Cbc And Automated Diff (06/12/23 10:39) Comprehensive Metabolic Panel (06/12/23 10:39) Hs C Reactive Protein (06/12/23 10:39) Ekg Tracing (06/12/23 10:39) Monitor-Rhythm Ecg Trace Only (06/12/23 10:39) Ed Iv/Invasive Line Start (06/12/23 10:39) Ns Iv 1000 Ml (Ns Iv 1000 Ml) (06/12/23 11:00) Manual Differential (06/12/23 11:08) Morphine Injection (Morphine Injection (06/12/23 11:17) Covid 19 Inhouse Test (06/12/23 11:17) Influenza A And B By Pcr (06/12/23 11:17) Chest 1 View, Ap/Pa Only (06/12/23 11:17) Ua Culture If Indicated (06/12/23 11:17) Erythrocyte Sedimentation Rate (06/12/23 11:17) Morphine Injection (Morphine Injection (06/12/23 13:34) Methylprednisolone Sod Succ (Methylpredn (06/12/23 14:00) Vital Signs/I&O 06/12/23 06/12/23 10:45 14:40 Temp 37.1 Pulse 130 110 Resp 14 14 B/P (MAP) 148/99 (115) 124/59 Pulse Ox 97 97 O2 Delivery Room Air Room Air Capillary Refill : Less Than 3 Seconds Blood Pressure Mean: 115 Progress Note #1: Time: 11:20 Progress Note I began work on this case with review of vital sign and placement of order at 1039. Verbal report had been received from the clinic prior to his arrival. Patient was interviewed and examined at 1103. Additional orders were placed. He is being hydrated with NS. We are screening for possible sources of infection with labs, UA, CXR and viral swabs. Patient denies any symptoms of acute infectious illness at this time. He reports this feels similar to his severe arthritis flair about 1 year ago. ECG demonstrated sinus tachycardia by my interpretation as noted below. Patient request pain control. Morphine was ordered. Progress Note #2: Time: 13:50 Progress Note Patient was screened for sources of infectious illness. No infectious illness was identified. Swabs for influenza and COVID-19 were negative. Chest x-ray was clear. See radiologist's interpretation below. Urinalysis was unremarkable. CBC was notable for a WBC count of 15.3. Remainder of CBC was unremarkable. This leukocytosis is likely secondary to chronic steroid use. Chemistry was notable for a mild elevation in calcium of 10.7 which likely represents hydration status. ESR was normal at 1. CRP was mildly elevated at 5.02. He was hydrated with a liter of IV fluids. This improved his heart rate from the 130 range to the 110s. Pain was treated with 2 doses of morphine 5 mg each. His case was reviewed with Dr. Taylor, corporate responsibility officer at [facility]. He recommended treatment with Solu-Medrol 60 mg IV now followed by oral prednisone 60 mg daily for 5 days. He can then discuss further treatment with his corporate responsibility officer on Wednesday. Patient was agreeable to this plan and prescriptions were provided. See discharge instructions for further discussion. ECG Initial ECG Impression Date: Jun 12, 2023 Initial ECG Impression Time: 10:50 Initial ECG Rate: 131 Initial ECG Rhythm: S.Tach Comment Sinus tachycardia with no ST elevation or depression. No abnormal intervals or axis deviation. Diagnostic Imaging Diagonstic Imaging: Xray Plain Films/CT/US/NM/MRI: chest Comments NAME: TOD KELSEY [facility] REC#: [id number] PT STATUS: DEP ER : 2000 PHYSICIAN: MAURICIO GUERRA MD ADMIT DATE: 06/12/23/ER Signed Date of Exam:06/12/23 CHEST 1 VIEW, AP/PA ONLY INDICATION: Tachycardia, hypertension, rheumatoid arthritis flareup, increased pain and stiffness . TECHNIQUE: Single view chest 11:17 AM CORRELATION STUDY: 06/19/2022 FINDINGS: Heart size enlarged but stable. Vasculature is improved and near normal at follow-up. No overt failure. The lungs are clear with no consolidating infiltrate. There is no significant effusion or pneumothorax. IMPRESSION: 1. Stable cardiac enlargement. No overt failure at follow-up. Dictated by: Dictated on workstation # [id number] Dict: 06/12/23 1132 Trans: 06/12/23 1446 CVB [id number] Interpreted by: DENIS THAYER DO Electronically signed by: DENIS THAYER DO 06/12/23 1443 Departure Impression Primary Impression: Still's disease Additional Impressions: Polyarthralgia Sinus tachycardia Disposition: 01 HOME, SELF-CARE Condition: Improved Departure-Patient Inst. Decision time for Depature: 13:57 Referrals: [facility]/ (PCP/Family) Primary Care Physician Patient Instructions: Rheumatoid arthritis Add. Discharge Instructions: Drink plenty of clear liquids to stay well-hydrated. Start your prednisone tomorrow morning. Take prednisone with food or milk to avoid stomach upset. Take early in the day to avoid sleep disturbance. Please contact your corporate responsibility officer on Wednesday to receive instructions on how to proceed with a steroid taper. You may use Percocet (oxycodone/acetaminophen) as prescribed for pain. Percocet may cause drowsiness, so use with caution. Do not drive, operate machinery, or make important decisions while on Percocet. Percocet may also cause constipation, see may wish to use a stool softener such as Colace while taking Percocet. Return to care if you have worsening symptoms despite following these instructions. You may stop the prednisone 5 mg tablets while you are taking the high-dose prednisone. Otherwise, you may continue your usual medications. All discharge instructions reviewed with patient and/or family. Voiced understanding. Scripts Prednisone (Prednisone) 20 Mg Tab 60 MG PO DAILY, #15 TAB 0 Refills Prov: MAURICIO GUERRA MD 06/12/23 Oxycodone HCl/Acetaminophen (Percocet 5-325 mg Tablet) 1 Each Tablet 1-2 TAB PO Q4H PRN for PAIN-MODERATE TO SEVERE MDD 6 TABS, #20 TAB Prov: MAURICIO GUERRA MD 06/12/23 Copy Copies To 1: ILSA OLSON MD, JOSHUA T MD Jun 12, 2023 11:24
[2023-06-12 11:27] LABS: BILIRUBIN,TOTAL 0.3 MG/DL (0.1-1.0)
[2023-06-12 11:29] LABS: CREATININE SERUM 0.65 MG/DL (0.60-1.30)
--- NOTE | 2023-06-12 11:41 | Diagnostic Imaging Report ---
INDICATION: Tachycardia, hypertension, rheumatoid arthritis flareup, increased pain and stiffness . TECHNIQUE: Single view chest 11:17 AM CORRELATION STUDY: 06/19/2022 FINDINGS: Heart size enlarged but stable. Vasculature is improved and near normal at follow-up. No overt failure. The lungs are clear with no consolidating infiltrate. There is no significant effusion or pneumothorax. IMPRESSION: 1. Stable cardiac enlargement. No overt failure at follow-up. Dictated by: Dictated on workstation # [id number]
[2023-06-12 11:50] LABS: BACTERIA,URINE NEGATIVE /HPF; BILIRUBIN,URINE NEGATIVE (NEGATIVE); CLARITY,URINE CLEAR; COLOR,URINE YELLOW; GLUCOSE, URINE (UA) NEGATIVE (NEGATIVE); KETONES,URINE NEGATIVE (NEGATIVE); LEUKOCYTE ESTERASE ,URINE NEGATIVE (NEGATIVE); NITRITE,URINE NEGATIVE (NEGATIVE); PROTEIN,URINE NEGATIVE (NEGATIVE); RBC,URINE RARE /HPF
[2023-06-12 11:52] LABS: BAND NEUTROPHILS 0 %; BASOPHILS % (MANUAL) 0 %; EOSINOPHILS % (MANUAL) 1 %; LYMPHOCYTES % (MANUAL) 9 %; MONOCYTES % (MANUAL) 8 %; NEUTROPHILS % (MANUAL) 82 %
[2023-06-12 11:53] LABS: ANISOCYTOSIS MODERATE
[2023-06-12] MEDS ORDERED: methylPREDNISolone INJ 125 MG VIAL IVP ONE (14:00)
[2023-06-12] MEDS ORDERED: PRD20T PO (14:01)
[2023-06-12] MEDS ORDERED: OXYC1TAB87 PO (14:01)
[2023-06-12 14:40] VITALS: BP 124/59
== END 2023-06-12 14:40 | disposition home or self-care (01) ==
LOC: EDUNIT# 10:34 → ER 10:36
DX: M08.20 Juvenile rheumatoid arthritis with systemic onset, unspecified site (principal); R00.0 Tachycardia, unspecified; F17.210 Nicotine dependence, cigarettes, uncomplicated
CPT/HCPCS: 36415; 71045; 80053; 81000; 85007; 85027; 85652; 86141; 87636; 93005; 93041